=== PATIENT | female | born 1950 | race Asian ===

== ENCOUNTER 2020-02-03 09:19 | Outpatient (REF) | payer MEDICARE, SELFPAY ==
[2020-02-03 11:39] LABS: Estimated Average Glucose 169 mg/dL; Hemoglobin A1c % 7.5 %
[2020-02-03 12:00] LABS: Creatinine Urine 42.02 mg/dL; Microalbumin Urine < 5.0 mg/L
[2020-02-03 12:15] LABS: Vitamin D 25-OH Total 76.6 ng/mL (>30)
[2020-02-03 12:18] LABS: Alanine Aminotransferase 23 U/L (0-31); Anion Gap 16 (12-20); Aspartate Amino Transferase 23 U/L (5-31); Blood Urea Nitrogen 17 mg/dL (9-16); Calcium 9.8 mg/dL (8.4-10.2); Carbon Dioxide 26 mmol/L (22-29); Chloride 102 mmol/L (96-108); Cholesterol 151 mg/dL; Estimated Glomerular Filt Rate > 60; Glucose Fasting 180 mg/dL (60-99); HDL Cholesterol 50 mg/dL; LDL Cholesterol Calculated 61 mg/dl; Potassium 4.6 mmol/l (3.3-5.1); Sodium 139 mmol/L (135-145); Triglycerides 200 mg/dL
== END 2020-02-03 09:20 | disposition home or self-care (01) ==
LOC: HO.HMGCLDS 09:19
PROVIDERS: PCP Internal Medicine; Visit Provider Internal Medicine
DX: E11.65 Type 2 diabetes mellitus with hyperglycemia (principal); M85.852 Other specified disorders of bone density and structure, left thigh; I10 Essential (primary) hypertension; E78.5 Hyperlipidemia, unspecified; Z85.3 Personal history of malignant neoplasm of breast
CPT/HCPCS: 80048; 80061; 82043; 82306; 83036; 84450; 84460

== ENCOUNTER 2020-02-05 10:30 | Outpatient (REF) | payer BC, SELFPAY ==
--- NOTE | 2020-02-05 10:41 | MM_ITS ---
EXAMINATION: BONE DENSITOMETRY CLINICAL INDICATION: Other specified disorders of bone density and structure. COMPARISON: Previous BD dated 01/28/2018 and baseline BD dated 05/25/2011. TECHNIQUE: Using a [employer] DXA System (software version: 13.1) manufactured by [employer], dual-energy x-ray absorptiometry was performed of the lumbar spine and left hip. The images are of good technical quality. Summary results are attached. FINDINGS: AP SPINE L1-L4: Current: BMD 0.960 g/cm2, Z-score 0.3, T-score -1.8, osteopenia, 0.3% increase from previous, 1.5% decrease from baseline (<5% change is not significant). Prior: BMD 0.957 g/cm2. Baseline: BMD 0.975 g/cm2. LEFT FEMUR, NECK: Current: BMD 0.733 g/cm2, Z-score -0.2, T-score -2.2, osteopenia. Prior: BMD 0.704 g/cm2. Baseline: BMD 0.717 g/cm2. LEFT FEMUR, TOTAL: Current: BMD 0.918 g/cm2, Z-score 1.0, T-score -0.7, normal, 3.6% increase from previous, 3.4% increase from baseline (<5% change is not significant). Prior: BMD 0.886 g/cm2. Baseline: BMD 0.888 g/cm2. IDENTIFIED RISK FACTORS: Height loss, secondary osteoporosis, menopause. HISTORY OF FRACTURE: None listed. MEDICATIONS: Calcium supplements or multivitamin, vitamin D. MM/XR DEXA axial skeleton IMPRESSION: 1. DIAGNOSIS: Osteopenia based on the lowest T-score value of -2.2 in the femoral neck applying World Health Organization criteria. 2. 10-YEAR FRACTURE RISK PREDICTION, FRAX: Major osteoporotic fracture (clinical spine, forearm, hip or shoulder) 7.0%. Hip fracture 1.4%. 3. Treatment Recommendations: NOF guidelines recommend consideration for treatment in postmenopausal women and men age 50 and older presenting with the following: -A hip or vertebral (clinical or morphometric) fracture. -T-score less than or equal to -2.5 at the femoral neck or spine after appropriate evaluation to exclude secondary causes. -Low bone mass at the hip or spine and a 10-year fracture probability by FRAX of greater than or equal to 3% for hip fracture or greater than or equal to 20% for major osteoporotic fracture based on the [place] adapted WHO algorithm. 4. Other Recommendations: All treatment decisions require clinical judgment and consideration of individual patient factors, including patient preferences, comorbidities, previous drug use, risk factors not captured in the FRAX model (e.g. frailty, falls, vitamin D deficiency, increased bone turnover, interval significant decline in bone density) and possible under or overestimation of fracture risk by FRAX. Additional medical evaluation for secondary cause of low bone mineral density may be appropriate. FUTURE SCAN RECOMMENDATION: People with diagnosed cases of osteoporosis or at high risk for fracture should have regular bone mineral density tests. For patients eligible for Medicare, routine testing is allowed once every 2 years. The testing frequency can be increased to one year for patients who have rapidly progressing disease, those who are receiving or discontinuing medical therapy to restore bone mass, or have additional risk factors.
== END 2020-02-05 10:31 | disposition home or self-care (01) ==
LOC: HO.MAMMO 10:30
PROVIDERS: PCP Internal Medicine; Visit Provider Internal Medicine
DX: M81.8 Other osteoporosis without current pathological fracture (principal); M85.852 Other specified disorders of bone density and structure, left thigh; Z78.0 Asymptomatic menopausal state
CPT/HCPCS: 77080

== ENCOUNTER 2020-05-10 09:21 | Outpatient (REF) | payer MEDICARE, SELFPAY ==
[2020-05-10 11:26] LABS: Estimated Average Glucose 174 mg/dL; Hemoglobin A1c % 7.7 %
[2020-05-10 11:59] LABS: Creatinine Urine 38.54 mg/dL; Microalbum/Creatinine Ratio Ur 18.1 ug/mg cr
[2020-05-10 12:13] LABS: Alanine Aminotransferase 23 U/L (0-31); Albumin Level 4.5 g/dL (3.5-5.0); Alkaline Phosphatase 72 U/L (39-117); Anion Gap 14 (12-20); Aspartate Amino Transferase 21 U/L (5-31); Bilirubin Total 0.3 mg/dL (0.0-1.0); Blood Urea Nitrogen 23 mg/dL (9-16); Calcium 9.6 mg/dL (8.4-10.2); Carbon Dioxide 26 mmol/L (22-29); Chloride 104 mmol/L (96-108); Cholesterol 143 mg/dL; Estimated Glomerular Filt Rate > 60; Glucose Fasting 124 mg/dL (60-99); HDL Cholesterol 53 mg/dL; LDL Cholesterol Calculated 63 mg/dl; Potassium 4.2 mmol/L (3.3-5.1); Sodium 140 mmol/L (135-145); Total Protein 7.6 g/dL (6.5-8.0); Triglycerides 137 mg/dL
== END 2020-05-10 09:22 | disposition home or self-care (01) ==
LOC: HO.HMGCLDS 09:21
PROVIDERS: PCP Internal Medicine; Visit Provider Internal Medicine
DX: I10 Essential (primary) hypertension (principal); E11.65 Type 2 diabetes mellitus with hyperglycemia; E78.5 Hyperlipidemia, unspecified; Z78.0 Asymptomatic menopausal state
CPT/HCPCS: 36415; 80053; 80061; 82043; 82306; 83036

== ENCOUNTER → 2020-05-23 13:31 | Outpatient (BNVA) | payer MEDICARE, SELFPAY | PROVIDERS: PCP Internal Medicine; Visit Provider Nurse Practitioner Gerontology | DX: E11.65 Type 2 diabetes mellitus with hyperglycemia (principal); I10 Essential (primary) hypertension; E78.5 Hyperlipidemia, unspecified | CPT/HCPCS: 82947; 99212 ==

== ENCOUNTER 2020-10-04 15:32 | Outpatient (REF) | payer MEDICARE, SELFPAY ==
[2020-10-05 09:10] LABS: FIT Int Ctl YES; FIT1 NEGATIVE (NEGATIVE); FIT2 NEGATIVE (NEGATIVE)
== END 2020-10-04 15:33 | disposition home or self-care (01) ==
LOC: HO.LNP 15:32
PROVIDERS: Visit Provider Internal Medicine
DX: Z12.11 Encounter for screening for malignant neoplasm of colon (principal)
CPT/HCPCS: 82274

== ENCOUNTER 2020-11-15 09:29 | Outpatient (REF) | payer MEDICARE, SELFPAY ==
[2020-11-15 11:25] LABS: MANUAL DIFF FLAG NO
[2020-11-15 11:34] LABS: Basophils Absolute Auto 0.1 X10*3/uL (0.0-0.2); Eosinophils Absolute Auto 0.2 X10*3/uL (0.0-0.4); Hematocrit 39.3 % (37-47); Hemoglobin 13.2 g/dl (12.0-16.0); Imm Gran Abs Auto 0.01 X10*3/uL (0.00-0.03); Imm Gran Pct Auto 0.2 % (0.0-0.4); Lymphocytes Absolute Auto 1.7 X10*3/uL (1.2-4.9); Lymphocytes Percent Auto 32.5 % (20-40); Mean Corpuscular HGB Conc 33.6 g/dl (31.0-35.0); Mean Corpuscular Hemoglobin 29.5 pg (27.0-33.0); Mean Corpuscular Volume 87.7 fL (80-98); Mean Platelet Volume 11.1 fL (9.4-12.3); Monocytes Absolute Auto 0.3 X10*3/uL (0.1-1.2); Monocytes Percent Auto 5.1 % (2-11); Neutrophils Percent Auto 58.2 % (45-73); Platelet Count 266 X10*3/uL (160-400); Red Blood Count 4.48 X10*6/uL (4.20-5.50); White Blood Count 5.1 X10*3/uL (4.8-10.8)
[2020-11-15 11:44] LABS: Creatinine Urine 43.28 mg/dL; Microalbumin Urine < 5.0 mg/L
[2020-11-15 11:50] LABS: Alanine Aminotransferase 17 U/L (0-31); Albumin Level 4.4 g/dL (3.5-5.0); Alkaline Phosphatase 68 U/L (39-117); Anion Gap 13 (12-20); Aspartate Amino Transferase 20 U/L (5-31); Bilirubin Total 0.9 mg/dL (0.0-1.0); Blood Urea Nitrogen 10 mg/dL (9-16); Calcium 9.7 mg/dL (8.4-10.2); Carbon Dioxide 26 mmol/L (22-29); Chloride 106 mmol/L (96-108); Cholesterol 155 mg/dL; Estimated Glomerular Filt Rate > 60; Glucose Fasting 154 mg/dL (60-99); HDL Cholesterol 53 mg/dL; LDL Cholesterol Calculated 54 mg/dl; Potassium 4.6 mmol/L (3.3-5.1); Sodium 140 mmol/L (135-145); Total Protein 7.2 g/dL (6.5-8.0); Triglycerides 241 mg/dL
[2020-11-15 11:57] LABS: Estimated Average Glucose 171 mg/dL; Hemoglobin A1c % 7.6 %
[2020-11-15 12:19] LABS: Vitamin D 25-OH Total 87.7 ng/mL (>30)
== END 2020-11-15 09:30 | disposition home or self-care (01) ==
LOC: HO.HMGCLDS 09:29
PROVIDERS: PCP Internal Medicine; Visit Provider Internal Medicine
DX: E11.65 Type 2 diabetes mellitus with hyperglycemia (principal); Z78.0 Asymptomatic menopausal state
CPT/HCPCS: 36415; 80053; 80061; 82043; 82306; 83036; 85025

== ENCOUNTER 2021-02-23 08:55 | Outpatient (REF) | payer MEDICARE, SELFPAY ==
[2021-02-23 11:53] LABS: Estimated Average Glucose 171 mg/dL; Hemoglobin A1c % 7.6 %
[2021-02-23 12:08] LABS: Creatinine Urine 42.82 mg/dL; Microalbumin Urine < 5.0 mg/L
[2021-02-23 12:14] LABS: Alanine Aminotransferase 22 U/L (0-31); Anion Gap 11 (12-20); Aspartate Amino Transferase 21 U/L (5-31); Blood Urea Nitrogen 19 mg/dL (9-16); Calcium 9.4 mg/dL (8.4-10.2); Carbon Dioxide 27 mmol/L (22-29); Chloride 106 mmol/L (96-108); Cholesterol 152 mg/dL; Estimated Glomerular Filt Rate > 60; Glucose Fasting 158 mg/dL (60-99); HDL Cholesterol 53 mg/dL; LDL Cholesterol Calculated 58 mg/dl; Potassium 4.3 mmol/L (3.3-5.1); Sodium 140 mmol/L (135-145); Triglycerides 208 mg/dL
[2021-02-23 12:22] LABS: Vitamin D 25-OH Total 72.6 ng/mL (>30)
== END 2021-02-23 08:56 | disposition home or self-care (01) ==
LOC: HO.HMGCLDS 08:55
PROVIDERS: PCP Internal Medicine; Visit Provider Internal Medicine
DX: E11.40 Type 2 diabetes mellitus with diabetic neuropathy, unspecified (principal); E11.65 Type 2 diabetes mellitus with hyperglycemia; E78.5 Hyperlipidemia, unspecified; I10 Essential (primary) hypertension
CPT/HCPCS: 36415; 80048; 80061; 82043; 82306; 83036; 84450; 84460

== ENCOUNTER 2021-06-02 09:12 | Outpatient (REF) | payer MEDICARE, SELFPAY ==
[2021-06-02 11:59] LABS: Alanine Aminotransferase 22 U/L (0-31); Anion Gap 14 (12-20); Aspartate Amino Transferase 19 U/L (5-31); Blood Urea Nitrogen 13 mg/dL (9-16); Calcium 9.9 mg/dL (8.4-10.2); Carbon Dioxide 27 mmol/L (22-29); Chloride 102 mmol/L (96-108); Cholesterol 142 mg/dL; Estimated Glomerular Filt Rate > 60; Glucose Fasting 174 mg/dL (60-99); HDL Cholesterol 51 mg/dL; LDL Cholesterol Calculated 50 mg/dl; Potassium 4.9 mmol/L (3.3-5.1); Sodium 138 mmol/L (135-145); Triglycerides 206 mg/dL
[2021-06-02 12:00] LABS: Estimated Average Glucose 166 mg/dL; Hemoglobin A1c % 7.4 %
== END 2021-06-02 09:13 | disposition home or self-care (01) ==
LOC: HO.HMGCLDS 09:12
PROVIDERS: PCP Internal Medicine; Visit Provider Internal Medicine
DX: E11.65 Type 2 diabetes mellitus with hyperglycemia (principal); E78.5 Hyperlipidemia, unspecified; I10 Essential (primary) hypertension
CPT/HCPCS: 36415; 80048; 80061; 83036; 84450; 84460

== ENCOUNTER 2021-09-08 08:59 | Outpatient (REF) | payer OTHER, SELFPAY ==
[2021-09-08 12:51] LABS: Estimated Average Glucose 154 mg/dL
[2021-09-08 13:03] LABS: Alanine Aminotransferase 20 U/L (0-31); Anion Gap 11 (12-20); Aspartate Amino Transferase 19 U/L (5-31); Blood Urea Nitrogen 23 mg/dL (9-16); Calcium 8.9 mg/dL (8.4-10.2); Carbon Dioxide 25 mmol/L (22-29); Chloride 108 mmol/L (96-108); Cholesterol 151 mg/dL; Estimated Glomerular Filt Rate > 60; Glucose Fasting 131 mg/dL (60-99); HDL Cholesterol 50 mg/dL; LDL Cholesterol Calculated 63 mg/dl; Potassium 4.2 mmol/L (3.3-5.1); Sodium 140 mmol/L (135-145); Triglycerides 194 mg/dL
== END 2021-09-08 09:00 | disposition home or self-care (01) ==
LOC: HO.HMGCLDS 08:59
PROVIDERS: PCP Internal Medicine; Visit Provider Internal Medicine
DX: E78.5 Hyperlipidemia, unspecified (principal); I10 Essential (primary) hypertension; E11.65 Type 2 diabetes mellitus with hyperglycemia
CPT/HCPCS: 36415; 80048; 80061; 83036; 84450; 84460

== ENCOUNTER 2021-12-14 08:42 | Outpatient (REF) | payer OTHER, SELFPAY ==
[2021-12-14 11:18] LABS: Estimated Average Glucose 166 mg/dL; Hemoglobin A1c % 7.4 %
[2021-12-14 12:00] LABS: Vitamin D 25-OH Total 75.7 ng/mL (>30)
[2021-12-14 12:01] LABS: Alanine Aminotransferase 19 U/L (0-31); Anion Gap 16 (12-20); Aspartate Amino Transferase 22 U/L (5-31); Blood Urea Nitrogen 20 mg/dL (9-16); Calcium 9.9 mg/dL (8.4-10.2); Carbon Dioxide 24 mmol/L (22-29); Chloride 103 mmol/L (96-108); Cholesterol 178 mg/dL; Estimated Glomerular Filt Rate > 60; Glucose Fasting 154 mg/dL (60-99); HDL Cholesterol 56 mg/dL; LDL Cholesterol Calculated 72 mg/dl; Potassium 4.4 mmol/L (3.3-5.1); Sodium 139 mmol/L (135-145); Triglycerides 250 mg/dL
== END 2021-12-14 08:43 | disposition home or self-care (01) ==
LOC: HO.HMGCLDS 08:42
PROVIDERS: PCP Internal Medicine; Visit Provider Internal Medicine
DX: E11.40 Type 2 diabetes mellitus with diabetic neuropathy, unspecified (principal); E11.65 Type 2 diabetes mellitus with hyperglycemia; E78.5 Hyperlipidemia, unspecified; I10 Essential (primary) hypertension; M85.89 Other specified disorders of bone density and structure, multiple sites; N95.9 Unspecified menopausal and perimenopausal disorder
CPT/HCPCS: 36415; 80048; 80061; 82306; 83036; 84450; 84460

== ENCOUNTER → 2022-01-31 14:58 | Outpatient (BNVA) | payer OTHER, SELFPAY | PROVIDERS: PCP Internal Medicine; Visit Provider Internal Medicine | DX: R19.5 Other fecal abnormalities (principal); R19.8 Other specified symptoms and signs involving the digestive system and abdomen | CPT/HCPCS: 99202 ==

== ENCOUNTER 2022-02-05 08:54 | Day surgery (SDC) | payer OTHER, SELFPAY ==
--- NOTE | 2022-02-02 09:53 | HO.ANESPROP2 ---
Documented by User: Prema Boyle NP 02/02/22 09:54 HPI - Anesthesia Eval Consult details Narrative: 71yo F for Colonoscopy PMFSH Active Problems Active Problems: All Active Problems (Updated 01/31/22 @ 15:48 by Rosy Ball MD) Irregular bowel habits (Acute) History of cancer of left breast (Acute) Change in stool caliber (Acute) Postprandial abdominal bloating (Acute) Type 2 diabetes mellitus with hyperglycemia, without long-term current use of insulin (Acute) Diabetic neuropathy (Acute) Essential hypertension (Acute) Dyslipidemia (Acute) Breast cancer screening by mammogram (Acute) Osteopenia of multiple sites (Acute) Past Medical History Medical History Change in stool caliber Diabetic neuropathy Dyslipidemia Essential hypertension History of cancer of left breast Hx SBO Osteopenia of multiple sites Postprandial abdominal bloating Small bowel obstruction Type 2 diabetes mellitus with hyperglycemia, without long-term current use of insulin Family History Family History Father No problems noted. Mother No problems noted. Sister Diabetes Daughter No problems noted. Brother Colon cancer Surgical History Surgical History H/O mastectomy History of bowel resection History of section Social History Social History Household Members: Spouse Housing: House Alcohol intake: never Patient Tobacco Use Status: Never used Tobacco e-Cigarette/Vaping Use: Never Used Use of substances other than those prescribed or required for medical reasons: No Are you DNR?: No Advance Directives: No Advance Directives Information Provided: Yes Current occupational status: retired Cognitive needs: No Hearing needs: No Vision needs: Yes Meds Allergies Allergy/AdvReac Type Severity Reaction Status Date / Time Penicillins [PENICILLINS] Allergy Unknown RASH Verified 01/31/22 15:07 Home Medications Medication Instructions Recorded Confirmed Last Taken Type lancets 30 gauge #100 ea 02/10/20 03/06/21 Unknown History cholecalciferol (vitamin D3) 50 50 mcg PO DAILY 12/06/20 02/05/22 Unknown History mcg (2,000 unit) capsule [id number]-xaeyzcez-oeynfu tablet 1 tab PO DAILY 12/06/20 02/05/22 Unknown History Exam Exam Date and Time: February 02, 2022 0987 Pertinent Lab Results Pertinent Lab Results: Laboratory Tests 12/14/21 08:55 Sodium 139 Potassium 4.4 Chloride 103 Carbon Dioxide 24 BUN 20 H Creatinine 0.80 Assessment and Plan Assessment Anesthesia Assessment: Chart Reviewed Documented by User: Briseida Walker MD 02/05/22 10:11 PMFSH Active Problems Active Problems: All Active Problems (Updated 01/31/22 @ 15:48 by Rosy Ball MD) Irregular bowel habits (Acute) History of cancer of left breast (Acute) Change in stool caliber (Acute) Postprandial abdominal bloating (Acute) Type 2 diabetes mellitus with hyperglycemia, without long-term current use of insulin (Acute) Diabetic neuropathy (Acute) Essential hypertension (Acute) Dyslipidemia (Acute) Breast cancer screening by mammogram (Acute) Osteopenia of multiple sites (Acute) Pain and some swelling below right ear. Intermittent. Mild pain today Past Medical History Medical History Change in stool caliber Diabetic neuropathy Dyslipidemia Essential hypertension History of cancer of left breast Hx SBO Osteopenia of multiple sites Postprandial abdominal bloating Small bowel obstruction Type 2 diabetes mellitus with hyperglycemia, without long-term current use of insulin Family History Family History Father No problems noted. Mother No problems noted. Sister Diabetes Daughter No problems noted. Brother Colon cancer Family history of problems with anesthesia: No Surgical History Surgical History H/O mastectomy History of bowel resection History of section History of Problems with Anesthesia: No Social History Social History Household Members: Spouse Housing: House Alcohol intake: never Patient Tobacco Use Status: Never used Tobacco e-Cigarette/Vaping Use: Never Used Use of substances other than those prescribed or required for medical reasons: No Are you DNR?: No Advance Directives: No Advance Directives Information Provided: Yes Current occupational status: retired Cognitive needs: No Hearing needs: No Vision needs: Yes Meds Allergies Allergy/AdvReac Type Severity Reaction Status Date / Time Penicillins [PENICILLINS] Allergy Unknown RASH Verified 01/31/22 15:07 Home Medications Medication Instructions Recorded Confirmed Last Taken Type lancets 30 gauge #100 ea 02/10/20 03/06/21 Unknown History cholecalciferol (vitamin D3) 50 50 mcg PO DAILY 12/06/20 02/05/22 Unknown History mcg (2,000 unit) capsule ivdsteerkmab-wvceqllq-mmknrd tablet 1 tab PO DAILY 12/06/20 02/05/22 Unknown History Exam Height,Weight and Vital Signs: Height 4 ft 8 in Weight 46.266 kg Vital Signs Temp Pulse Resp BP Pulse Ox O2 Del Method 02/05/22 09:52 98.7 F 91 16 144/67 H 97 Room Air Pertinent Lab Results Pertinent Lab Results: Laboratory Tests 12/14/21 08:55 Sodium 139 Potassium 4.4 Chloride 103 Carbon Dioxide 24 BUN 20 H Creatinine 0.80 Lab Results 02/05/22 Range/Units 10:05 POC Glucose 157 H (60-115) mg/dL Airway Mallampati Class: II TM Dist: >3cm Neck ROM: Full Denture: Upper and Lower Heart: RRR Lungs: CTAB Assessment and Plan Assessment Anesthesia Assessment: Anesthesia Plan Discussed Final Anesthetic Review Family History of Problems with Anesthesia: No History of Problems with Anesthesia: No NPO: Yes ASA Class: II Final Preanesthetic Review: No Changes in Pt Med Stat, Meds/Allgs Chart Reviewed, Consent Obtained/Reviewed and Anes Risks/Benef Reviewed Patient Risk: Low Procedure Risk: Low Assessment/Block/Sedation in SS: Assess/Block/Sedation-SS Anesthetic Plan Anesthetic Plan: MAC: Disposition: Standard PACU
[2022-02-05] VITALS (8 sets, daily range): BP systolic 77–147; BP diastolic 29–67; PULSE 79–91; RESP 12–18; TEMP 36.8–37.1; O2SAT 97–100; BMI 22.8
[2022-02-05 10:09] LABS: Glucose, Whole Blood 157 mg/dL (60-115)
--- NOTE | 2022-02-05 10:15 | P.OP_ITS ---
Operative Note Operative Note Date of Service: 02/05/22 Narrative: Procedure: Colonoscopy Indication: Change in stool caliber, family history of colon cancer Endoscopist: Rosy Ball MD Anesthesia Provider: Aliyah Helm CRNA Anesthesia type: MAC Instrument: Olympus [id number]-H190L Consent: Indication, risks vs benefits, and alternatives were discussed with the patient who gave written informed consent to proceed. EKG, pulse, pulse oximetry and blood pressure were monitored throughout the procedure. Please see leatha bob flowsheet. Procedure: The patient was brought to the procedure room and placed in the left lateral decubitus position. IV medications were administered by the anesthesia provider in attendance. A digital rectal exam was performed which was normal. The colonoscope was then inserted through the anus and advanced through the colon to the cecum at 70 cm,and terminal ileum. Mucosa was carefully examined under high definition white light as the instrument was slowly withdrawn in a retrograde panoramic fashion. Retroflexion was performed in rectum. The procedure was not difficult. There were no immediate obvious complications. The quality of the prep was BBPS: 3+3+3 = excellent Withdrawal time 14 minutes. Limitations: No limitations. Findings: Mucosa: Normal to cecum and terminal ileum. Protruding lesions: * Small internal hemorrhoids without stigmata of recent bleeding. Impression: 1. Normal colon and terminal ileum mucosa 2. Internal hemorrhoids Recommendations: - Follow path results. - Repeat colonoscopy in 10 years for CRC screening if in good health (fam hx of CRC in brother noted, however was diagnosed at 66 y.o age).
--- NOTE | 2022-02-05 10:15 | MHC.SHP ---
Pre-Procedural Eval Section A Date of Service: 02/05/22 The patient is an INPATIENT: No The History & Physical has been completed within 30 days and I have reviewed it.: Yes Section B Chief Complaint: Change in stool caliber & bowel habits Allergies: Allergies Allergy/AdvReac Type Severity Reaction Status Date / Time Penicillins [PENICILLINS] Allergy Unknown RASH Verified 01/31/22 15:07 Plan Diagnosis/Plan: Unchanged I have reviewed the history and physical and performed a pertinent physical examination on my patient. No changes have occurred unless specified.
[2022-02-05] MEDS: Lactated Ringers 1,000 ML 100 ML IVCONT (10:17)
== END 2022-02-05 13:42 | disposition home or self-care (01) ==
PROVIDERS: PCP Internal Medicine; Visit Provider Internal Medicine
PROC: 0DJD8ZZ Inspection of Lower Intestinal Tract, Via Natural or Artificial Opening Endoscopic (ICD-10-PCS; CPT 45378; principal; 2022-02-05 10:20)
DX: R19.4 Change in bowel habit (principal); Z80.0 Family history of malignant neoplasm of digestive organs; K64.8 Other hemorrhoids; C50.912 Malignant neoplasm of unspecified site of left female breast; M85.89 Other specified disorders of bone density and structure, multiple sites; E11.40 Type 2 diabetes mellitus with diabetic neuropathy, unspecified; E11.65 Type 2 diabetes mellitus with hyperglycemia; E78.5 Hyperlipidemia, unspecified; I10 Essential (primary) hypertension; Z87.19 Personal history of other diseases of the digestive system; Z90.49 Acquired absence of other specified parts of digestive tract; Z79.84 Long term (current) use of oral hypoglycemic drugs; Z79.811 Long term (current) use of aromatase inhibitors; Z88.0 Allergy status to penicillin
CPT/HCPCS: 45378; 82947

== ENCOUNTER 2022-05-11 07:20 | Outpatient (REF) | payer OTHER, SELFPAY ==
[2022-05-11 12:45] LABS: Estimated Average Glucose 154 mg/dL
[2022-05-11 12:51] LABS: Creatinine Urine 59.67 mg/dL; Microalbum/Creatinine Ratio Ur 21.7 ug/mg cr
[2022-05-11 13:42] LABS: Alanine Aminotransferase 21 U/L (0-31); Anion Gap 17 (12-20); Aspartate Amino Transferase 19 U/L (5-31); Blood Urea Nitrogen 24 mg/dL (9-16); Calcium 9.6 mg/dL (8.4-10.2); Carbon Dioxide 25 mmol/L (22-29); Chloride 104 mmol/L (96-108); Cholesterol 157 mg/dL; Estimated Glomerular Filt Rate > 60; Glucose Fasting 143 mg/dL (60-99); HDL Cholesterol 57 mg/dL; LDL Cholesterol Calculated 59 mg/dl; Potassium 4.7 mmol/L (3.3-5.1); Sodium 141 mmol/L (135-145); Triglycerides 206 mg/dL
[2022-05-11 13:57] LABS: Vitamin D 25-OH Total 80.1 ng/mL (>30)
== END 2022-05-11 07:21 | disposition home or self-care (01) ==
LOC: HO.HMGCLDS 07:20
PROVIDERS: PCP Internal Medicine; Visit Provider Internal Medicine
DX: E78.5 Hyperlipidemia, unspecified (principal); I10 Essential (primary) hypertension; M85.89 Other specified disorders of bone density and structure, multiple sites; N95.9 Unspecified menopausal and perimenopausal disorder; E11.65 Type 2 diabetes mellitus with hyperglycemia
CPT/HCPCS: 36415; 80048; 80061; 82043; 82306; 83036; 84450; 84460

== ENCOUNTER 2022-05-31 10:52 | Outpatient (REF) | payer OTHER, SELFPAY ==
--- NOTE | ~2022-05-31 | MM_ITS ---
EXAMINATION: BONE DENSITOMETRY CLINICAL INDICATION: Asymptomatic menopausal state. COMPARISON: Previous BD dated 02/05/2020 and baseline BD dated 05/25/2011. TECHNIQUE: Using a [employer] DXA System (software version: 13.1) manufactured by [employer], dual-energy x-ray absorptiometry was performed of the lumbar spine and left hip. The images are of good technical quality. Summary results are attached. FINDINGS: AP SPINE L1-L4: Current: BMD 0.953 g/cm2, Z-score 0.4, T-score -1.9, osteopenia, 0.7% decrease from previous, 2.3% decrease from baseline (<5% change is not significant). Prior: BMD 0.960 g/cm2. Baseline: BMD 0.975 g/cm2. LEFT FEMUR, NECK: Current: BMD 0.730 g/cm2, Z-score -0.1, T-score -2.2, osteopenia. Prior: BMD 0.733 g/cm2. Baseline: BMD 0.717 g/cm2. LEFT FEMUR, TOTAL: Current: BMD 0.872 g/cm2, Z-score 0.9, T-score -1.1, osteopenia, 5.0% decrease from previous, 1.8% decrease from baseline (<5% change is not significant). Prior: BMD 0.918 g/cm2. Baseline: BMD 0.888 g/cm2. IDENTIFIED RISK FACTORS: Height loss, menopause. HISTORY OF FRACTURE: None listed. MEDICATIONS: Calcium, vitamin D. MM/XR DEXA axial skeleton IMPRESSION: 1. DIAGNOSIS: Osteopenia based on the lowest T-score value of -2.2 in the femoral neck applying World Health Organization criteria. 2. 10-YEAR FRACTURE RISK PREDICTION, FRAX: Major osteoporotic fracture (clinical spine, forearm, hip or shoulder) 6.8%. Hip fracture 1.7%. 3. Treatment Recommendations: NOF guidelines recommend consideration for treatment in postmenopausal women and men age 50 and older presenting with the following: -A hip or vertebral (clinical or morphometric) fracture. -T-score less than or equal to -2.5 at the femoral neck or spine after appropriate evaluation to exclude secondary causes. -Low bone mass at the hip or spine and a 10-year fracture probability by FRAX of greater than or equal to 3% for hip fracture or greater than or equal to 20% for major osteoporotic fracture based on the [place] adapted WHO algorithm. 4. Other Recommendations: All treatment decisions require clinical judgment and consideration of individual patient factors, including patient preferences, comorbidities, previous drug use, risk factors not captured in the FRAX model (e.g. frailty, falls, vitamin D deficiency, increased bone turnover, interval significant decline in bone density) and possible under or overestimation of fracture risk by FRAX. Additional medical evaluation for secondary cause of low bone mineral density may be appropriate. FUTURE SCAN RECOMMENDATION: People with diagnosed cases of osteoporosis or at high risk for fracture should have regular bone mineral density tests. For patients eligible for Medicare, routine testing is allowed once every 2 years. The testing frequency can be increased to one year for patients who have rapidly progressing disease, those who are receiving or discontinuing medical therapy to restore bone mass, or have additional risk factors.
== END 2022-05-31 10:53 | disposition home or self-care (01) ==
LOC: HO.MAMMO 10:52
PROVIDERS: PCP Internal Medicine; Visit Provider Internal Medicine
DX: Z13.820 Encounter for screening for osteoporosis (principal); M85.89 Other specified disorders of bone density and structure, multiple sites; Z78.0 Asymptomatic menopausal state
CPT/HCPCS: 77080

== ENCOUNTER 2022-08-17 08:32 | Outpatient (REF) | payer OTHER, SELFPAY ==
[2022-08-17 11:51] LABS: Estimated Average Glucose 157 mg/dL; Hemoglobin A1c % 7.1 %
[2022-08-17 12:05] LABS: Alanine Aminotransferase 17 U/L (0-31); Anion Gap 15 (12-20); Aspartate Amino Transferase 20 U/L (5-31); Blood Urea Nitrogen 24 mg/dL (9-16); Calcium 9.6 mg/dL (8.4-10.2); Carbon Dioxide 24 mmol/L (22-29); Chloride 104 mmol/L (96-108); Cholesterol 149 mg/dL; Estimated Glomerular Filt Rate > 60; Glucose Fasting 104 mg/dL (60-99); HDL Cholesterol 51 mg/dL; LDL Cholesterol Calculated 52 mg/dl; Potassium 3.8 mmol/L (3.3-5.1); Sodium 139 mmol/L (135-145); Triglycerides 233 mg/dL
[2022-08-17 12:24] LABS: Vitamin D 25-OH Total 106.7 ng/mL (>30)
== END 2022-08-17 08:33 | disposition home or self-care (01) ==
LOC: HO.HMGCLDS 08:32
PROVIDERS: PCP Internal Medicine; Visit Provider Internal Medicine
DX: E11.65 Type 2 diabetes mellitus with hyperglycemia (principal); E78.5 Hyperlipidemia, unspecified; I10 Essential (primary) hypertension; M85.89 Other specified disorders of bone density and structure, multiple sites
CPT/HCPCS: 36415; 80048; 80061; 82306; 83036; 84450; 84460

== ENCOUNTER 2022-08-24 11:34 | Outpatient (AMB) | payer OTHER, SELFPAY ==
--- NOTE | 2022-08-24 12:06 | A.OFFPC_ITS ---
Vital Signs 08/24/22 12:51 Weight 100 lb 6 oz BP 118/72 Blood Pressure Location Rt brachial Position Sitting Pulse 84 Pulse Source Pulse Oximeter Pulse Oximetry (%) 98 Intake Visit Reasons: 3 month ffup dm , lipids, htn Intake Note: Pt is here today for her 3 months f/u DM,lipids and HTN Allergies Penicillins [PENICILLINS] Allergy (Unknown, Verified 10/15/22 13:16) RASH Medication List - Last Reconciled 10/16/22 by Wendy Espinosa MD cholecalciferol (vitamin D3) 50 mcg PO DAILY glipizide 10 mg PO BID 90 days lancets As directed lisinopril 20 mg PO DAILY metformin 1,000 mg PO BID yxygjwbrlfga-kabhqsky-allwwi 1 tab PO DAILY rosuvastatin 10 mg PO Q2D 90 days Tobacco use date assessed: 05/18/22 Fall risk assessment: 1 Fall in past year Last assessed Fall Risk: 08/24/22 Dental Screening Dental Screen Date: 08/24/22 Did you have a dental visit in the last 12 months?: No Did you have a dental problem in the last 6 months where you did not have access to dental care?: No Was dental information given to patient?: No (patient has dentures ) HPI 3 month ffup dm , lipids, htn HPI Details 72-year-old lady here today for follow-up on her diabetes mellitus, dyslipidemia hypertension. Has been compliant with taking her medications and has been trying to cut back on her rice intake and staying active. Walks regularly for exercise. Has no complaints at present time [facility] Medical History Change in stool caliber Diabetic neuropathy Dyslipidemia Essential hypertension History of cancer of left breast Hx SBO Osteopenia of multiple sites Postprandial abdominal bloating Small bowel obstruction Type 2 diabetes mellitus with hyperglycemia, without long-term current use of insulin Surgical History H/O mastectomy History of bowel resection History of section Family History Father No problems noted. Mother No problems noted. Sister Diabetes Daughter No problems noted. Brother Colon cancer Social History Household Members: Spouse Housing: House Alcohol intake: never Patient Tobacco Use Status: Never used Tobacco e-Cigarette/Vaping Use: Never Used Current occupational status: retired Cognitive needs: No Hearing needs: No Vision needs: Yes Questionnaire PHQ-9 Over the last 2 weeks, how often have you been bothered by any of the following problems? Depression Screening Interpretation: Negative Source: Developed by Drs. Rocky Kelly, Kanu Campbell and colleagues, with an educational vanita from [employer]. Thrive Questionnaire Date Thrive assessed: 05/18/22 VIOLETA-7 AMB Questionnaire VIOLETA-7 Date VIOLETA - 7 assessed: 05/18/22 Source: Developed by Drs. Rocky Kelly, Nazanin Gorman, Kanu Tang and colleagues, with an educational vanita from [employer]. Review of Systems Const Denies difficulty sleeping, Denies fatigue, Denies malaise, Denies weakness, Denies weight gain and Denies weight loss Eyes Denies change in vision ENT Reports no additional complaints Card Denies chest pain, Denies palpitations and Denies dyspnea Resp Denies cough and Denies dyspnea GI Denies abdominal pain, Denies melena, Denies hematochezia, Denies change in bowel habits, Denies heartburn and Denies fecal incontinence Denies difficulty voiding, Denies nocturia, Denies dysuria, Denies urinary urgency and Denies vaginal discharge Musc Denies muscle cramps and Denies muscle weakness Neuro Denies burning sensations and Denies weakness Endo Denies fatigue, Denies polydipsia, Reports polyuria and Denies palpitations Ascencion/Lymph Denies easy bruising Aller/Immun Reports no additional complaints Physical exam (Primary Care) Vital Signs: Last Vital Signs Pulse 84 08/24/22 12:51 BP 118/72 08/24/22 12:51 Pulse Ox 98 08/24/22 12:51 Tobacco/Smoking Status: Tobacco use Status Tobacco use date assessed 05/18/22 08/24/22 12:09 Patient Tobacco Use Status Never used Tobacco 08/24/22 12:09 e-Cigarette/Vaping Use Never Used 08/24/22 12:09 Depression Screening Interpretation: Negative Thrive Assessment: Date of Thrive Assessment Date Thrive assessed 05/18/22 08/24/22 12:09 Const General: comfortable and no acute distress Nutritional Appearance: average body habitus Orientation/consciousness: patient oriented x3 HENMT Face and sinus: Yes face symmetric Mouth: Normal oral and palatal mucosa present and moist mucous membranes Neck Neck: Yes full ROM, Yes no lymphadenopathy and Yes supple Resp Effort & Inspection: normal respiratory effort and able to speak in complete sentences Auscultation: clear to auscultation bilaterally Cardio Other: S1-S2 present regular rate and rhythm GI Palpation (GI): Soft to palpation, nontender and no guarding Auscultation: normal bowel sounds Neuro General: patient oriented x3, gait normal, tone normal, moves all extremities, Normal light touch and pain sensation, no focal motor deficits, CN's II-XI intact bilaterally and normal sensation to monofilament Extrem General: Yes full ROM, Yes no joint enlargement, Yes no clubbing, cyanosis or edema, Yes no calf tenderness and Yes normal gait Results Reviewed Results Reviewed: ENTERED: 08/17/[address]: ORDERED: Met Prof Fast, AST, ALT, Lipid Panel, Vitamin D 25-OH Test Result Flag Reference Site N Sodium 139 135-145 mmol/L Potassium 3.8 3.3-5.1 mmol/L CL 104 96-108 mmol/L CO2 24 22-29 mmol/L Gap 15 12-20 BUN 24 H 9-16 mg/dL Creat 0.78 0.5-1.4 mg/dL EGFR > 60 NOTE: For -[place] individuals, multiply the result by 1.210. Chronic Kidney Disease: Estimated GFR < 60 mL/min/1.73m2 Severe Kidney Disease: Estimated GFR < 15 mL/min/1.73m2 FBS 104 H 60-99 mg/dL A fasting glucose from 100-125 mg/dl is considered impaired (pre-diabetes). CA 9.6 8.4-10.2 mg/dL AST (GOT) 20 5-31 U/L ALT (GPT) 17 0-31 U/L Triglyceride 233 mg/dL Desirable Triglyceride: less than 150 mg/dL Borderline High Triglyceride 150-199 mg/dL High Triglyceride: 200-499 mg/dL Very High Triglyceride: greater than or equal to 5OO mg/dL Chol 149 mg/dL Desirable Cholesterol: less than 200 mg/dL Borderline High Cholesterol: 200-239 mg/dL High Cholesterol: greater than 239 mg/dL LDL Calculated 52 mg/dl Desirable LDL: less than 100 mg/dL Near Optimal/Above Optimal LDL: 110-129 mg/dL Borderline High LDL: 130-159 mg/dL High LDL: 160-189 mg/dL Very High LDL: greater than or equal to 190 mg/dL HDL 51 mg/dL Desirable HDL: greater than 40 mg/dL Note: This HDL assay may give artificially low results in patients with liver disease. Vit D 25-OH Tot 106.7 >30 ng/mL Health Based Reference Values* < 20 ng/mL Deficient 20-30 ng/mL Insufficient > 30 ng/mL Sufficient Laboratory Tests 08/17/22 08:42 Estimat Average Glucose 157 Hemoglobin A1c % 7.1 Assessment and Plan Assessment & Plan (1) Type 2 diabetes mellitus with hyperglycemia, without long-term current use of insulin: Code(s): E11.65 - Type 2 diabetes mellitus with hyperglycemia Plan: Recent lab results reviewed with patient, with improving glucose control with hemoglobin A1c 7.1%. Continue metformin and glipizide same dose, and continue to check fasting blood sugar at home, maintain log and bring to next appointment for review. Reinforced diabetic diet and regular exercise with patient. Counseled regarding importance of yearly diabetes retinopathy screening. Patient advised to inspect feet daily, for any signs of injury, callus or infection. Compliance with diet and regular exercise again stressed. Blood pressure goal is less than 130/80, goal LDL is less than 100 and goal hemoglobin A1c is less than 7% follow-up appointment made in-3--months, after fasting labs done. (2) Essential hypertension: Code(s): I10 - Essential (primary) hypertension Plan: Blood pressure at goal of less than 130/80. Continue with current medication. Reinforced importance of following a low sodium diet, getting regular exercise, and lowering stress levels. (3) Dyslipidemia: Code(s): E78.5 - Hyperlipidemia, unspecified Plan: Fasting lipids are within normal limits, continued on current dose of rosuvastatin 10 mg every other day, and repeat fasting lipid panel again in 3 months (4) Osteopenia of multiple sites: Code(s): M85.89 - Other specified disorders of bone density and structure, multiple sites Orders: Orders Alanine Aminotransferase 4 Months E11.65 - Type 2 diabetes mellitus with hyperglycemia, I10 - Essential (primary) hypertension, E78.5 - Hyperlipidemia, unspecified, M85.89 - Other specified disorders of bone density and structure, multiple sites Aspartate Amino Transferase 4 Months E11.65 - Type 2 diabetes mellitus with hyperglycemia, I10 - Essential (primary) hypertension, E78.5 - Hyperlipidemia, unspecified, M85.89 - Other specified disorders of bone density and structure, multiple sites Hemoglobin A1c 4 Months E11.65 - Type 2 diabetes mellitus with hyperglycemia, I10 - Essential (primary) hypertension, E78.5 - Hyperlipidemia, unspecified, M85.89 - Other specified disorders of bone density and structure, multiple sites Lipid Panel 4 Months E11.65 - Type 2 diabetes mellitus with hyperglycemia, I10 - Essential (primary) hypertension, E78.5 - Hyperlipidemia, unspecified, M85.89 - Other specified disorders of bone density and structure, multiple sites Basic Metabolic Panel Fasting 4 Months E11.65 - Type 2 diabetes mellitus with hyperglycemia, I10 - Essential (primary) hypertension, E78.5 - Hyperlipidemia, unspecified, M85.89 - Other specified disorders of bone density and structure, multiple sites Vitamin D 25-OH Total 4 Months E11.65 - Type 2 diabetes mellitus with hyperglycemia, I10 - Essential (primary) hypertension, E78.5 - Hyperlipidemia, unspecified, M85.89 - Other specified disorders of bone density and structure, multiple sites Medications: Changed From glipizide take 2 tabs (10 Mg) in am and 1 tab (5 mg) in pm with meals PO 2 times a day; 90 days 270 tabs 1RF .65 - Type 2 diabetes mellitus with hyperglycemia To glipizide take 2 tabs (10 Mg) in am and 1 tab (5 mg) in pm with meals PO 2 times a day; 270 tabs 1RF 90 days E11.65 - Type 2 diabetes mellitus with hyperglycemia Refilled lisinopril 20 mg PO DAILY 90 tabs 1RF Coding Level of Care Code Est Pt Level 3 (60102) Diagnoses Type 2 diabetes mellitus with hyperglycemia, without long-term current use of insulin E11. Essential hypertension I10 Dyslipidemia E78.5 Osteopenia of multiple sites M85.89
[2022-08-24 12:51] VITALS: BP 118/72; PULSE 84; O2SAT 98
== END 2022-08-24 13:03 | disposition home or self-care (01) ==
PROVIDERS: Visit Provider Internal Medicine
DX: E11.65 Type 2 diabetes mellitus with hyperglycemia (principal); I10 Essential (primary) hypertension; E78.5 Hyperlipidemia, unspecified; M85.89 Other specified disorders of bone density and structure, multiple sites
CPT/HCPCS: 99213

== ENCOUNTER 2022-10-15 12:56 | Outpatient (AMB) | payer OTHER, SELFPAY ==
[2022-10-15 12:57] VITALS: BP 116/62; PULSE 99; O2SAT 98; BMI 20.9
--- NOTE | 2022-10-15 12:57 | MHC.PC.OV ---
Vital Signs 10/15/22 12:57 Height 4 ft 10 in Weight 100 lb 4 oz BMI 20.9 BP 116/62 Blood Pressure Location Lt brachial Position Sitting Pulse 99 Pulse Source Pulse Oximeter Pulse Oximetry (%) 98 Intake Visit Reasons: discuss med change Intake Note: pt is here for discuss med change, stopped jardiance patient is unable to pay it, cost was $30 and now 170$ Allergies Penicillins [PENICILLINS] Allergy (Unknown, Verified 10/15/22 13:16) RASH Medication List - Last Reconciled 10/15/22 by Wendy Espinosa MD cholecalciferol (vitamin D3) 50 mcg PO DAILY glipizide take 2 tabs (10 Mg) in am and 1 tab (5 mg) in pm with meals PO 2 times a day; 90 days lancets As directed lisinopril 20 mg PO DAILY metformin 1,000 mg PO BID ecjgdwywjhtm-xigdrtox-qgzvti 1 tab PO DAILY rosuvastatin 10 mg PO Q2D 90 days Tobacco use date assessed: 05/18/22 Fall risk assessment: No Falls in past year Last assessed Fall Risk: 10/15/22 Dental Screening Dental Screen Date: 10/15/22 Did you have a dental visit in the last 12 months?: Yes Did you have a dental problem in the last 6 months where you did not have access to dental care?: No Was dental information given to patient?: Patient has dentist HPI discuss med change HPI Details 72-year-old lady with diabetes mellitus on metformin 1000 mg twice a day, glipizide 10 mg in the morning and 5 mg at bedtime, and previously was on Jardiance, with last hemoglobin A1c at 7.1% August 2022, here today wanting to be switched to a different medication. She stopped taking Jardiance as it was very expensive. [facility] Medical History Change in stool caliber Diabetic neuropathy Dyslipidemia Essential hypertension History of cancer of left breast Hx SBO Osteopenia of multiple sites Postprandial abdominal bloating Small bowel obstruction Type 2 diabetes mellitus with hyperglycemia, without long-term current use of insulin Surgical History H/O mastectomy History of bowel resection History of section Family History Father No problems noted. Mother No problems noted. Sister Diabetes Daughter No problems noted. Brother Colon cancer Social History Household Members: Spouse Housing: House Alcohol intake: never Patient Tobacco Use Status: Never used Tobacco e-Cigarette/Vaping Use: Never Used Current occupational status: retired Cognitive needs: No Hearing needs: No Vision needs: Yes Questionnaire PHQ-9 Over the last 2 weeks, how often have you been bothered by any of the following problems? Depression Screening Interpretation: Negative Source: Developed by Drs. Rocky Kelly, Nazanin Gorman, Kanu Tang and colleagues, with an educational vanita from [employer]. Thrive Questionnaire Date Thrive assessed: 05/18/22 VIOLETA-7 AMB Questionnaire VIOLETA-7 Date VIOLETA - 7 assessed: 05/18/22 Source: Developed by Drs. Rocky Kelly, Nazanin Gorman, Kanu Tang and colleagues, with an educational vanita from [employer]. Review of Systems Const Denies fatigue, Denies lethargy and Denies malaise Eyes Denies change in vision ENT Reports no additional complaints Card Denies chest pain, Denies palpitations and Denies dyspnea Resp Denies cough and Denies dyspnea GI Denies abdominal pain, Denies melena, Denies hematochezia, Denies change in bowel habits, Denies heartburn and Denies fecal incontinence Reports urinary frequency and Denies dysuria Musc Denies muscle cramps and Denies muscle weakness Neuro Denies burning sensations Endo Denies fatigue, Denies polydipsia and Denies palpitations Physical exam (Primary Care) Vital Signs: Last Vital Signs Pulse 99 10/15/22 12:57 BP 116/62 10/15/22 12:57 Pulse Ox 98 10/15/22 12:57 BMI result Body Mass Index 20.9 Tobacco/Smoking Status: Tobacco use Status Tobacco use date assessed 05/18/22 10/15/22 12:59 Patient Tobacco Use Status Never used Tobacco 10/15/22 12:59 e-Cigarette/Vaping Use Never Used 10/15/22 12:59 Depression Screening Interpretation: Negative Thrive Assessment: Date of Thrive Assessment Date Thrive assessed 05/18/22 10/15/22 12:59 Const General: cooperative, comfortable and no acute distress Nutritional Appearance: average body habitus Orientation/consciousness: patient oriented x3 HENMT Ears: hearing grossly normal bilaterally, TM's normal bilaterally and EAC's normal General nose exam: Normal external nose present and No nasal discharge present Face and sinus: Yes face symmetric Mouth: Normal oral and palatal mucosa present and moist mucous membranes Neck Neck: Yes full ROM, Yes no lymphadenopathy and Yes supple Thyroid: Thyroid normal Resp Effort & Inspection: normal respiratory effort and able to speak in complete sentences Auscultation: clear to auscultation bilaterally Cardio Other: S1-S2 present regular rate and rhythm GI Palpation (GI): Soft to palpation, nontender and no guarding Auscultation: normal bowel sounds Neuro General: patient oriented x3, gait normal, tone normal, moves all extremities, Normal light touch and pain sensation, no focal motor deficits, CN's II-XI intact bilaterally and normal sensation to monofilament Extrem General: Yes full ROM, Yes no joint enlargement, Yes no clubbing, cyanosis or edema, Yes no calf tenderness and Yes normal gait Assessment and Plan Assessment & Plan (1) Type 2 diabetes mellitus with hyperglycemia, without long-term current use of insulin: Code(s): E11.65 - Type 2 diabetes mellitus with hyperglycemia Plan: Will continue on metformin 1000 mg twice a day, and increase dose of glipizide to 10 mg 1 tablet twice a day. Jardiance discontinued by patient due to his high cost. Advised to continue checking fasting sugars morning and night before meals and keep a log of the readings. Call if blood sugar readings are running above 150 mg/dL at all times. Reinforced diabetic diet and regular exercise with patient. Counseled regarding importance of yearly diabetes retinopathy screening. Patient advised to inspect feet daily, for any signs of injury, callus or infection. Compliance with diet and regular exercise again stressed. Blood pressure goal is less than 130/80, goal LDL is less than 100 and goal hemoglobin A1c is less than 7% follow-up appointment made in-2--months, after fasting labs done. Medications: Changed From glipizide take 2 tabs (10 Mg) in am and 1 tab (5 mg) in pm with meals PO 2 times a day; 90 days 270 tabs 1RF E11.65 - Type 2 diabetes mellitus with hyperglycemia To glipizide 10 mg PO BID 180 tabs 0RF 90 days E11.65 - Type 2 diabetes mellitus with hyperglycemia Coding Level of Care Code Est Pt Level 3 (34497) Diagnoses Type 2 diabetes mellitus with hyperglycemia, without long-term current use of insulin E11.65
== END 2022-10-15 14:34 | disposition home or self-care (01) ==
PROVIDERS: PCP Internal Medicine; Visit Provider Internal Medicine
DX: E11.65 Type 2 diabetes mellitus with hyperglycemia (principal)
CPT/HCPCS: 99213

== ENCOUNTER 2022-12-14 09:31 | Outpatient (REF) | payer OTHER, SELFPAY ==
[2022-12-14 12:36] LABS: Estimated Average Glucose 160 mg/dL; Hemoglobin A1c % 7.2 % (<6.0)
[2022-12-14 13:11] LABS: Alanine Aminotransferase 20 U/L (0-31); Anion Gap 15 (12-20); Aspartate Amino Transferase 19 U/L (5-31); Blood Urea Nitrogen 18 mg/dL (9-16); Calcium 9.5 mg/dL (8.4-10.2); Carbon Dioxide 24 mmol/L (22-29); Chloride 107 mmol/L (96-108); Cholesterol 157 mg/dL (<200); Estimated Glomerular Filt Rate > 60; Glucose Fasting 122 mg/dL (60-99); HDL Cholesterol 56 mg/dL (>40); LDL Cholesterol Calculated 64 mg/dL (<100); Potassium 3.9 mmol/L (3.3-5.1); Sodium 142 mmol/L (135-145); Triglycerides 185 mg/dL (<150)
[2022-12-14 13:29] LABS: Vitamin D 25-OH Total 93.1 ng/mL (>30)
== END 2022-12-14 09:32 | disposition home or self-care (01) ==
LOC: HO.HMGCLDS 09:31
PROVIDERS: PCP Internal Medicine; Visit Provider Internal Medicine
DX: E11.65 Type 2 diabetes mellitus with hyperglycemia (principal); I10 Essential (primary) hypertension; E78.5 Hyperlipidemia, unspecified; M85.89 Other specified disorders of bone density and structure, multiple sites
CPT/HCPCS: 36415; 80048; 80061; 82306; 83036; 84450; 84460

== ENCOUNTER 2022-12-19 09:18 | Outpatient (AMB) | payer OTHER, SELFPAY ==
[2022-12-19 09:26] VITALS: BP 120/60; PULSE 70; O2SAT 100; BMI 21.3
--- NOTE | 2022-12-19 09:26 | MHC.PC.OV ---
Vital Signs 12/19/22 09:26 Height 4 ft 10 in Weight 102 lb BMI 21.3 BP 120/60 Blood Pressure Location Lt brachial Position Sitting Pulse 70 Pulse Source Pulse Oximeter Pulse Oximetry (%) 100 Oxygen Delivery Method Room Air Intake Visit Reasons: Annual Physical Intake Note: pt is here for a PE pt will have the flu vaccine at [facility] Allergies Penicillins [PENICILLINS] Allergy (Unknown, Verified 01/17/23 02:12) RASH Medication List - Last Reconciled 12/19/22 by Wendy Espinosa MD cholecalciferol (vitamin D3) 50 mcg PO DAILY glipizide 10 mg in the morning and 5 mg at night orally 2 times a day; lancets As directed lisinopril 20 mg PO DAILY metformin 1,000 mg PO BID uyitwshkapfs-shsbaiwu-dqpiwm 1 tab PO DAILY rosuvastatin 10 mg PO Q2D 90 days Tobacco use date assessed: 12/19/22 Fall risk assessment: No Falls in past year Last assessed Fall Risk: 12/19/22 Dental Screening Dental Screen Date: 12/19/22 Did you have a dental visit in the last 12 months?: No Did you have a dental problem in the last 6 months where you did not have access to dental care?: No Was dental information given to patient?: No HPI Annual Physical HPI Details 72-year-old lady with history of breast cancer on left, has diabetes mellitus, hyperlipidemia and hypertension, here today for her physical exam. She has been feeling fine, has been taking her medications as directed, and has tried cutting back a lot on her rice and pastry intake. Latest hemoglobin A1c however still elevated at 7.2% [facility] Medical History Change in stool caliber Postprandial abdominal bloating Hx SBO History of cancer of left breast Osteopenia of multiple sites Diabetic neuropathy Small bowel obstruction Essential hypertension Dyslipidemia Type 2 diabetes mellitus with hyperglycemia, without long-term current use of insulin Surgical History History of bowel resection History of section H/O mastectomy Family History Father No problems noted. Mother No problems noted. Sister Diabetes Daughter No problems noted. Brother Colon cancer Social History Household Members: Spouse Housing: House Alcohol intake: never Patient Tobacco Use Status: Never used Tobacco e-Cigarette/Vaping Use: Never Used Current occupational status: retired Cognitive needs: No Hearing needs: No Vision needs: Yes Questionnaire Thrive Questionnaire Date Thrive assessed: 05/18/22 VIOLETA-7 AMB Questionnaire VIOLETA-7 Date VIOLETA - 7 assessed: 05/18/22 Source: Developed by Drs. Rocky Kelly, Nazanin Gorman, Kanu Tang and colleagues, with an educational vanita from [employer]. Review of Systems Const All systems reviewed & are unremarkable except as noted in HPI and below Reports no additional complaints Eyes Details: Has an appointment for Dr. Prince for her diabetes retinopathy screening Reports no additional complaints ENT Reports no additional complaints Card Reports no additional complaints Resp Reports no additional complaints GI Reports no additional complaints Reports no additional complaints Musc Reports no additional complaints Skin/Breast Reports system reviewed and no additional complaints, except as documented Neuro Reports no additional complaints Psych Reports no additional complaints Endo Reports no additional complaints Ascencion/Lymph Reports no additional complaints Aller/Immun Reports no additional complaints Physical exam (Primary Care) Vital Signs: Last Vital Signs Pulse 70 12/19/22 09:26 BP 120/60 12/19/22 09:26 Pulse Ox 100 12/19/22 09:26 Oxygen Delivery Method Room Air 12/19/22 09:26 BMI result Body Mass Index 21.3 Tobacco/Smoking Status: Tobacco use Status Tobacco use date assessed 12/19/22 12/19/22 09:29 Patient Tobacco Use Status Never used Tobacco 12/19/22 09:26 e-Cigarette/Vaping Use Never Used 12/19/22 09:26 Thrive Assessment: Date of Thrive Assessment Date Thrive assessed 05/18/22 12/19/22 09:26 Const General: cooperative, comfortable and no acute distress Nutritional Appearance: average body habitus Orientation/consciousness: patient oriented x3 HENMT Ears: hearing grossly normal bilaterally, TM's normal bilaterally and EAC's normal General nose exam: Normal external nose present and No nasal discharge present Face and sinus: Yes face symmetric Mouth: Normal oral and palatal mucosa present and moist mucous membranes Neck Neck: Yes full ROM, Yes no lymphadenopathy and Yes supple Thyroid: Thyroid normal Resp Effort & Inspection: normal respiratory effort and able to speak in complete sentences Auscultation: clear to auscultation bilaterally Cardio Other: S1-S2 present regular rate and rhythm GI Palpation (GI): Soft to palpation, nontender and no guarding Auscultation: normal bowel sounds General: Yes no CVA tenderness Back/Spine/Pelvis Back: no CVA tenderness and No back tenderness Skin General skin exam: no rashes or lesions noted Neuro General: patient oriented x3, gait normal, tone normal, moves all extremities, Normal light touch and pain sensation, no focal motor deficits, CN's II-XI intact bilaterally and normal sensation to monofilament Extrem General: Yes full ROM, Yes no joint enlargement, Yes no clubbing, cyanosis or edema, Yes no calf tenderness and Yes normal gait Psych Appearance: grossly normal and well kempt Mental Status: mental status grossly normal Speech and movement: Normal speech and movement present Affect: normal affect Attitude: cooperative Thought process: Normal thought process present Immunizations pneumoc 20-jose conj-dip cr(PF) 0.5 mL IM syringe Performing Provider: Wendy Espinosa MD Performing Location: [facility] Administered by: Dunia Faith CMA on 12/19/22 10:39 Dose Route Admin Location Dispensed Lot Number Expiration Date [address] Boss 0.5 mL IM Right Deltoid 0.5 mL [id number] 01/02/24 0643-5846-89 [employer] VIS Given Date VIS Provided VIS Publication Date 12/19/22 Single Vaccine 21 Eligibility Eligibility Date Funding Source Not [facility] Eligible 12/19/22 Private Assessment and Plan Assessment & Plan (1) Annual visit for general adult medical examination with abnormal findings: Code(s): Z00.01 - Encounter for general adult medical examination with abnormal findings Plan: Reviewed recent fasting lab results with patient. Recommended dental visit every 6 months and regular eye exams once a year. Take adequate calcium in diet and vitamin-D 3 at 2000 IU per cap once a day, in addition to weight-bearing exercises to help maintain good muscle tone and weight control. Instructed to do self-breast exam, and recommended to get yearly mammogram, already scheduled and she also had a bone density scan done earlier which showed presence of osteopenia in her lower back and left hip and thigh. She is up-to-date with her screening colonoscopy. Reminded to get her COVID booster and her flu shot, Prevnar 20 given today (2) Type 2 diabetes mellitus with hyperglycemia, without long-term current use of insulin: Code(s): E11.65 - Type 2 diabetes mellitus with hyperglycemia Plan: Recent lab results reviewed with patient, with sugar and hemoglobin A1c stable but at goal of less than 7%. Continue with present medications, continue to check fasting blood sugar at home, maintain log and bring to next appointment for review. Reinforced diabetic diet and regular exercise with patient. Counseled regarding importance of yearly diabetes retinopathy screening. Patient advised to inspect feet daily, for any signs of injury, callus or infection. Compliance with diet and regular exercise again stressed. Blood pressure goal is less than 130/80, goal LDL is less than 100 and goal hemoglobin A1c is less than 7% follow-up appointment made in--3-months, after fasting labs done. (3) Diabetic neuropathy: Code(s): E11.40 - Type 2 diabetes mellitus with diabetic neuropathy, unspecified (4) Essential hypertension: Code(s): I10 - Essential (primary) hypertension Plan: Blood pressure at goal of less than 130/80. Continue with current medication. Reinforced importance of following a low sodium diet, getting regular exercise, and lowering stress levels. (5) Dyslipidemia: Code(s): E78.5 - Hyperlipidemia, unspecified Plan: Reviewed recent fasting lipid profile with patient with levels within normal limits except for elevated triglycerides . Continue with rosuvastatin 10 mg 1 tablet every other day, , in addition to adherence to low-cholesterol diet and regular exercise, at least 30 minutes 3 to 4 times a week. Advised patient to make healthy food choices, eat more fruits, vegetables, whole grains, wild caught fish and low-fat dairy. Limit amount of meat and fried or fatty food products, as well as processed foods and fast foods. Follow-up scheduled with repeat fasting lipid panel in 3 months. (6) Osteopenia of multiple sites: Code(s): M85.89 - Other specified disorders of bone density and structure, multiple sites Plan: Discussed results of bone density scan with patient which showed presence of osteopenia. Emphasized importance of staying active doing regular weight-bearing exercise, continue taking multivitamins with calcium and continue with vitamin-D 3 supplements 50 mcg daily. Orders: Orders MM tomosynthesis screening RT 12/19/22 Z12.31 - Encounter for screening mammogram for malignant neoplasm of breast Microalbumin, Random (w Creat) 04/04/23 E11.65 - Type 2 diabetes mellitus with hyperglycemia, E11.40 - Type 2 diabetes mellitus with diabetic neuropathy, unspecified, I10 - Essential (primary) hypertension, E78.5 - Hyperlipidemia, unspecified, M85.89 - Other specified disorders of bone density and structure, multiple sites, Z78.0 - Asymptomatic menopausal state, Z00.01 - Encounter for general adult medical examination with abnormal findings Comprehensive Badger. Panel Fast 04/04/23 E11.65 - Type 2 diabetes mellitus with hyperglycemia, E11.40 - Type 2 diabetes mellitus with diabetic neuropathy, unspecified, I10 - Essential (primary) hypertension, E78.5 - Hyperlipidemia, unspecified, M85.89 - Other specified disorders of bone density and structure, multiple sites, Z78.0 - Asymptomatic menopausal state, Z00.01 - Encounter for general adult medical examination with abnormal findings Pneumococcal 20 Immunization 12/19/22 Z23 - Encounter for immunization Lipid Panel 04/04/23 E11.65 - Type 2 diabetes mellitus with hyperglycemia, E11.40 - Type 2 diabetes mellitus with diabetic neuropathy, unspecified, I10 - Essential (primary) hypertension, E78.5 - Hyperlipidemia, unspecified, M85.89 - Other specified disorders of bone density and structure, multiple sites, Z78.0 - Asymptomatic menopausal state, Z00.01 - Encounter for general adult medical examination with abnormal findings Hemoglobin A1c 04/04/23 E11.65 - Type 2 diabetes mellitus with hyperglycemia, E11.40 - Type 2 diabetes mellitus with diabetic neuropathy, unspecified, I10 - Essential (primary) hypertension, E78.5 - Hyperlipidemia, unspecified, M85.89 - Other specified disorders of bone density and structure, multiple sites, Z78.0 - Asymptomatic menopausal state, Z00.01 - Encounter for general adult medical examination with abnormal findings Vitamin D 25-OH Total 04/04/23 E11.65 - Type 2 diabetes mellitus with hyperglycemia, E11.40 - Type 2 diabetes mellitus with diabetic neuropathy, unspecified, I10 - Essential (primary) hypertension, E78.5 - Hyperlipidemia, unspecified, M85.89 - Other specified disorders of bone density and structure, multiple sites, Z78.0 - Asymptomatic menopausal state, Z00.01 - Encounter for general adult medical examination with abnormal findings Medications: Refilled empagliflozin (Jardiance) 10 mg PO QAM 30 tabs 4RF E11.65 - Type 2 diabetes mellitus with hyperglycemia Coding Level of Care Code Est Pt Prev Care >65y(09084) Diagnoses Annual visit for general adult medical examination with abnormal findings Z00.01 Type 2 diabetes mellitus with hyperglycemia, without long-term current use of insulin E11.65 Diabetic neuropathy E11.40 Essential hypertension I10 Dyslipidemia E78.5 Osteopenia of multiple sites M85.89
== END 2022-12-19 10:45 | disposition home or self-care (01) ==
PROVIDERS: PCP Internal Medicine; Visit Provider Internal Medicine
DX: Z00.00 Encounter for general adult medical examination without abnormal findings (principal); E11.65 Type 2 diabetes mellitus with hyperglycemia; E11.40 Type 2 diabetes mellitus with diabetic neuropathy, unspecified; Z23 Encounter for immunization; E78.5 Hyperlipidemia, unspecified; M85.89 Other specified disorders of bone density and structure, multiple sites
CPT/HCPCS: 90471; 90677; 99397

== ENCOUNTER 2022-12-27 10:16 | Outpatient (REF) | payer OTHER, SELFPAY ==
--- NOTE | ~2022-12-27 | MM_ITS ---
EXAMINATION: MM SCREENING DIGITAL BREAST TOMOSYNTHESIS, BILATERAL CLINICAL INFORMATION: Screening. Asymptomatic. The patient is status post left mastectomy. COMPARISON: Mammography: This study is compared with prior exams dating back to 2016. TECHNIQUE: Digital breast tomosynthesis is performed in both the craniocaudal and mediolateral oblique views along with computer-aided detection (CAD). Synthesized 2D images are generated from the tomosynthesis. FINDINGS: The breasts are heterogeneously dense, which may obscure small masses (ACR BI-RADS breast composition Category c). There are no significant masses, abnormal calcifications, or other abnormalities in the right breast. MM/MM tomosynthesis screening RT IMPRESSION: No mammographic evidence of malignancy. ASSESSMENT: BI-RADS BI-RADS 1 - Negative RECOMMENDATION: Routine annual mammography screening. 1 year F/U This examination should not preclude the clinical evaluation of a suspicious palpable abnormality. This patient's information was entered into a reminder system with a target due date for their next mammogram.
== END 2022-12-27 10:17 | disposition home or self-care (01) ==
LOC: HO.MAMMO 10:16
PROVIDERS: PCP Internal Medicine; Visit Provider Internal Medicine
DX: Z12.31 Encounter for screening mammogram for malignant neoplasm of breast (principal)
CPT/HCPCS: 77063; 77067

== ENCOUNTER → 2022-12-27 10:30 | Outpatient (BNV) | payer OTHER, SELFPAY | PROVIDERS: PCP Internal Medicine; Visit Provider Radiology Diagnostic Radiology | DX: Z12.31 Encounter for screening mammogram for malignant neoplasm of breast (principal) | CPT/HCPCS: 77063; 77067 ==

== ENCOUNTER 2023-01-11 09:04 | Outpatient (AMB) | payer OTHER, SELFPAY ==
[2023-01-11 09:15] VITALS: BP 120/74; PULSE 104; TEMP 36.4; O2SAT 98; BMI 21.3
--- NOTE | 2023-01-11 09:15 | AM.OFFWIN_ITS ---
Intake Vital Signs 01/11/23 09:15 Height 4 ft 10 in Weight 102 lb BMI 21.3 BP 120/74 Blood Pressure Location Rt brachial Position Sitting Pulse 104 H Pulse Source Pulse Oximeter Temp 97.6 F Temp Source Temporal Artery Scan Pulse Oximetry (%) 98 Oxygen Delivery Method Room Air Intake Visit Reasons: EP Insect Bite RT thigh/inside spreading Intake Note: pt is here for c/o insect bite right inner thigh Patient Tobacco Use Status: Never used Tobacco Allergies Penicillins [PENICILLINS] Allergy (Unknown, Verified 01/11/23 09:16) RASH Do you need a note to return to daycare/school/sports/work: Yes HPI HPI Comments History of Present Illness Details This is a 72-year-old female who presents to the office today for sick visit. Patient complaining of a rash to her inner right thigh. Patient believe she was bitten by an insect approximately 2 weeks ago. She states the area got really red, swollen, and warm. Patient has been using triple antibiotic cream, itch relief cream, and hydrocortisone cream. She states the area of redness, swelling, and warmth has actually significantly improved. However, she started to developed a bumpy itchy rash surrounding the bite area the past several days. She denies any fevers or chills. She denies any myalgias/arthralgias. She denies any headaches. She denies any fatigue. [facility] Medical History Change in stool caliber Diabetic neuropathy Dyslipidemia Essential hypertension History of cancer of left breast Hx SBO Osteopenia of multiple sites Postprandial abdominal bloating Small bowel obstruction Type 2 diabetes mellitus with hyperglycemia, without long-term current use of insulin Surgical History H/O mastectomy History of bowel resection History of section Family History Father No problems noted. Mother No problems noted. Sister Diabetes Daughter No problems noted. Brother Colon cancer Social History Household Members: Spouse Housing: House Alcohol intake: never Patient Tobacco Use Status: Never used Tobacco e-Cigarette/Vaping Use: Never Used Current occupational status: retired Cognitive needs: No Hearing needs: No Vision needs: Yes Review of Systems Const All systems reviewed & are unremarkable except as noted in HPI and below Reports no additional complaints Eyes Reports no additional complaints ENT Reports no additional complaints Card Reports no additional complaints Resp Reports no additional complaints GI Reports no additional complaints Reports no additional complaints Musc Reports no additional complaints Skin/Breast Reports system reviewed and no additional complaints, except as documented Neuro Reports no additional complaints Psych Reports no additional complaints Endo Reports no additional complaints Ascencion/Lymph Reports no additional complaints Aller/Immun Reports no additional complaints Physical Exam Vital Signs: Last Vital Signs Temp 97.6 F 01/11/23 09:15 Pulse 104 H 01/11/23 09:15 BP 120/74 01/11/23 09:15 Pulse Ox 98 01/11/23 09:15 Oxygen Delivery Method Room Air 01/11/23 09:15 BMI result Body Mass Index 21.3 Const Other: Vital signs reviewed. Constitutional: Non-toxic appearing. No acute distress. Well-developed and well-nourished. HEENT: Normocephalic and atraumatic. Tympanic membranes without erythema, edema, or bulging bilaterally. External auditory canals without erythema or edema bilaterally. Moist mucous membranes. No pharyngeal erythema or exudates. Skin: Warm and dry. Small circular hyperpigmented area on the right inner thigh with a surrounding erythemaotus maculopapular rash. No evidence of cellulitis or abscess. Neck: Full and painless range of motion. No cervical lymphadenopathy. Cardio: Regular rate and rhythm. No murmurs, gallops, or rubs. No lower extremity edema. No JVD. Pulmonary: No respiratory distress. No accessory muscle usage. Clear to auscultation bilaterally without wheezing, crackles, or rhonchi. Gastrointestinal: Soft, nontender, and nondistended in all 4 quadrants. No rmoactive bowel sounds in all 4 quadrants. Genitourinary: No CVA tenderness. Musculoskeletal: Normal range of motion in joints throughout the body. No deformity or other signs of injury. Neuro: Alert and oriented x4. Cranial nerves 2-12 grossly intact. No focal deficits appreciated. Psych: Normal mood and affect. Assessment & Plan Assessment & Plan (1) Insect bite of right leg: Code(s): S80.861A - Insect bite (nonvenomous), right lower leg, initial encounter; W57.XXXA - Bitten or stung by nonvenomous insect and other nonvenomous arthropods, initial encounter (2) Contact dermatitis: Code(s): L25.9 - Unspecified contact dermatitis, unspecified cause Plan This is a 72-year-old female presenting to the office complaining a rash to her right inner thigh in the setting of a suspected insect bite. Physical examination, there is a small area of hyperpigmentation surrounded by an blotchy erythematous maculopapular rash. History and physical most consistent with an insect bite with surrounding contact dermatitis. There is no evidence of cellulitis or an abscess. Patient was sent home on triamcinolone cream twice daily. She was instructed to follow-up here or proceed to the emergency room if she were to develop erythema, lymphangitic streaking, fever/chills, or other systemic symptoms. Patient verbalized understanding and is agreeable with the plan. Medications: New triamcinolone acetonide 0.1% 1 appl topical BID 15 grams 0RF Coding Level of Care Code Est Pt Level 3 (18526) Diagnoses Insect bite of right leg S80.861A; W57.XXXA Contact dermatitis L25.9
== END 2023-01-11 09:51 | disposition home or self-care (01) ==
PROVIDERS: PCP Internal Medicine; Visit Provider Physician Assistant Medical
DX: S80.861A Insect bite (nonvenomous), right lower leg, initial encounter (principal); W57.XXXA Bitten or stung by nonvenomous insect and other nonvenomous arthropods, initial encounter; L25.9 Unspecified contact dermatitis, unspecified cause
CPT/HCPCS: 99213

== ENCOUNTER 2023-03-13 08:57 | Outpatient (REF) | payer OTHER, SELFPAY ==
[2023-03-13 11:54] LABS: Estimated Average Glucose 154 mg/dL; Hemoglobin A1C 198.1791 umol/L
[2023-03-13 12:16] LABS: Creatinine Urine 64.15 mg/dL; Microalbum/Creatinine Ratio Ur 35.8 ug/mg cr (<30)
[2023-03-13 12:21] LABS: Alanine Aminotransferase 20 U/L (0-31); Albumin Level 4.3 g/dL (3.5-5.0); Alkaline Phosphatase 54 U/L (39-117); Anion Gap 16 (12-20); Aspartate Amino Transferase 21 U/L (5-31); Bilirubin Total 0.5 mg/dL (0.0-1.0); Blood Urea Nitrogen 16 mg/dL (9-16); Calcium 9.6 mg/dL (8.4-10.2); Carbon Dioxide 26 mmol/L (22-29); Chloride 104 mmol/L (96-108); Cholesterol 149 mg/dL (<200); Estimated Glomerular Filt Rate > 60; Glucose Fasting 145 mg/dL (60-99); HDL Cholesterol 55 mg/dL (>40); LDL Cholesterol Calculated 41 mg/dL (<100); Potassium 3.9 mmol/L (3.3-5.1); Sodium 142 mmol/L (135-145); Total Protein 7.5 g/dL (6.5-8.0); Triglycerides 265 mg/dL (<150); Vitamin D 25-OH Total 112.1 ng/mL (>30)
== END 2023-03-13 08:58 | disposition home or self-care (01) ==
LOC: HO.HMGCLDS 08:57
PROVIDERS: PCP Internal Medicine; Visit Provider Internal Medicine
DX: Z00.01 Encounter for general adult medical examination with abnormal findings (principal); E11.65 Type 2 diabetes mellitus with hyperglycemia; E11.40 Type 2 diabetes mellitus with diabetic neuropathy, unspecified; I10 Essential (primary) hypertension; E78.5 Hyperlipidemia, unspecified; M85.89 Other specified disorders of bone density and structure, multiple sites; Z78.0 Asymptomatic menopausal state
CPT/HCPCS: 36415; 80053; 80061; 82043; 82306; 82570; 83036

== ENCOUNTER 2023-03-15 11:17 | Outpatient (AMB) | payer MEDICARE, SELFPAY ==
[2023-03-15 11:38] VITALS: BP 120/68; PULSE 102; O2SAT 97; BMI 21.8
--- NOTE | 2023-03-15 11:38 | MHC.PC.OV ---
Vital Signs 03/15/23 11:38 Height 4 ft 10 in Weight 104 lb 4 oz BMI 21.8 BP 120/68 Blood Pressure Location Rt brachial Position Sitting Pulse 102 H Pulse Source Pulse Oximeter Pulse Oximetry (%) 97 Oxygen Delivery Method Room Air Intake Visit Reasons: 3 month fu Intake Note: Pt is here to follow up for her lab results Allergies Penicillins [PENICILLINS] Allergy (Unknown, Verified 03/15/23 12:33) RASH Medication List - Last Reconciled 03/15/23 by Wendy Espinosa MD cholecalciferol (vitamin D3) 50 mcg PO DAILY empagliflozin (Jardiance) 10 mg PO QAM glipizide 10 mg in the morning and 5 mg at night orally 2 times a day; lancets As directed lisinopril 20 mg PO DAILY metformin 1,000 mg PO BID [id number]-xiryvchm-ljkpst 1 tab PO DAILY rosuvastatin 10 mg PO Q2D 90 days Tobacco use date assessed: 03/15/23 Fall risk assessment: No Falls in past year Last assessed Fall Risk: 03/15/23 Dental Screening Dental Screen Date: 03/15/23 Did you have a dental visit in the last 12 months?: No Did you have a dental problem in the last 6 months where you did not have access to dental care?: No Was dental information given to patient?: No HPI 3 month fu HPI Details 72-year-old lady with history of breast cancer, here today for follow-up on her hypertension, lipids and diabetes mellitus. She has been taking her medications but admits to sometimes forgetting to take her metformin dose at night. Has been trying to adhere to recommended diet, cutting back on her rice anything pastries. He has been feeling well with no complaints at present time, and latest hemoglobin A1c done 2 days ago came back at 7%, lower than last check. [facility] Medical History Change in stool caliber Postprandial abdominal bloating Hx SBO History of cancer of left breast Osteopenia of multiple sites Diabetic neuropathy Small bowel obstruction Essential hypertension Dyslipidemia Type 2 diabetes mellitus with hyperglycemia, without long-term current use of insulin Surgical History History of bowel resection History of section H/O mastectomy Family History Father No problems noted. Mother No problems noted. Sister Diabetes Daughter No problems noted. Brother Colon cancer Social History Household Members: Spouse Housing: House Alcohol intake: never Patient Tobacco Use Status: Never used Tobacco e-Cigarette/Vaping Use: Never Used Current occupational status: retired Cognitive needs: No Hearing needs: No Vision needs: Yes Questionnaire Thrive Questionnaire Date Thrive assessed: 05/18/22 VIOLETA-7 AMB Questionnaire VIOLETA-7 Date VIOLETA - 7 assessed: 05/18/22 Source: Developed by Drs. Rocky Kelly, Nazanin Gorman, Kanu Tang and colleagues, with an educational vanita from [employer]. Review of Systems Const All systems reviewed & are unremarkable except as noted in HPI and below Reports no additional complaints Eyes Details: Has an appointment with Dr. Prince for her diabetes retinopathy Reports no additional complaints ENT Reports no additional complaints Card Reports no additional complaints Resp Reports no additional complaints GI Reports no additional complaints Reports no additional complaints Musc Reports no additional complaints Skin/Breast Reports system reviewed and no additional complaints, except as documented Neuro Reports no additional complaints Psych Reports no additional complaints Endo Reports no additional complaints Ascencion/Lymph Reports no additional complaints Aller/Immun Reports no additional complaints Physical exam (Primary Care) Vital Signs: Last Vital Signs Pulse 112 H 03/15/23 11:38 BP 120/68 03/15/23 11:38 Pulse Ox 97 03/15/23 11:38 Oxygen Delivery Method Room Air 03/15/23 11:38 BMI result Body Mass Index 21.8 Tobacco/Smoking Status: Tobacco use Status Tobacco use date assessed 03/15/23 03/15/23 11:42 Patient Tobacco Use Status Never used Tobacco 03/15/23 11:42 e-Cigarette/Vaping Use Never Used 03/15/23 11:42 Thrive Assessment: Date of Thrive Assessment Date Thrive assessed 05/18/22 03/15/23 11:42 Const General: cooperative, comfortable and no acute distress Nutritional Appearance: average body habitus Orientation/consciousness: patient oriented x3 HENMT Ears: hearing grossly normal bilaterally, TM's normal bilaterally and EAC's normal General nose exam: Normal external nose present and No nasal discharge present Face and sinus: Yes face symmetric Mouth: Normal oral and palatal mucosa present and moist mucous membranes Neck Neck: Yes full ROM, Yes no lymphadenopathy and Yes supple Thyroid: Thyroid normal Resp Effort & Inspection: normal respiratory effort and able to speak in complete sentences Auscultation: clear to auscultation bilaterally Cardio Other: S1-S2 present regular rate and rhythm GI Palpation (GI): Soft to palpation, nontender and no guarding Auscultation: normal bowel sounds General: Yes no CVA tenderness Back/Spine/Pelvis Back: no CVA tenderness and No back tenderness Skin General skin exam: no rashes or lesions noted Neuro General: patient oriented x3, gait normal, tone normal, moves all extremities, Normal light touch and pain sensation, no focal motor deficits, CN's II-XI intact bilaterally and normal sensation to monofilament Extrem General: Yes full ROM, Yes no joint enlargement, Yes no clubbing, cyanosis or edema, Yes no calf tenderness and Yes normal gait Psych Appearance: grossly normal and well kempt Mental Status: mental status grossly normal Speech and movement: Normal speech and movement present Affect: normal affect Attitude: cooperative Thought process: Normal thought process present Results Reviewed Results Reviewed: ENTERED: 03/13/[address]: ORDERED: CMP Fast, Lipid Panel, Vitamin D 25-OH Test Result Flag Reference Site Sodium 142 135-145 mmol/L Potassium 3.9 3.3-5.1 mmol/L CL 104 96-108 mmol/L CO2 26 22-29 mmol/L Gap 16 12-20 BUN 16 9-16 mg/dL Creat 0.79 0.5-1.4 mg/dL EGFR > 60 NOTE: For -Citizen Of [place] individuals, multiply the result by 1.210. Chronic Kidney Disease: Estimated GFR < 60 mL/min/1.73m2 Severe Kidney Disease: Estimated GFR < 15 mL/min/1.73m2 FBS 145 H 60-99 mg/dL A fasting glucose of 126 mg/dl or greater on more than one occasion is considered diagnostic of diabetes. CA 9.6 8.4-10.2 mg/dL Total Bili 0.5 0.0-1.0 mg/dL AST (GOT) 21 5-31 U/L ALT (GPT) 20 0-31 U/L Protein, Total 7.5 6.5-8.0 g/dL Alb 4.3 3.5-5.0 g/dL Triglyceride 265 H <150 mg/dL Desirable Triglyceride: less than 150 mg/dL Borderline High Triglyceride 150-199 mg/dL High Triglyceride: 200-499 mg/dL Very High Triglyceride: greater than or equal to 5OO mg/dL Cholesterol 149 <200 mg/dL Desirable Cholesterol: less than 200 mg/dL Borderline High Cholesterol: 200-239 mg/dL High Cholesterol: greater than 239 mg/dL LDL Calculated 41 <100 mg/dL Desirable LDL: less than 100 mg/dL Near Optimal/Above Optimal LDL: 110-129 mg/dL Borderline High LDL: 130-159 mg/dL High LDL: 160-189 mg/dL Very High LDL: greater than or equal to 190 mg/dL HDL 55 >40 mg/dL Desirable HDL: greater than 40 mg/dL Note: This HDL assay may give artificially low results in patients with liver disease. Alk Phos 54 39-117 U/L Vit D 25-OH Tot 112.1 >30 ng/mL Health Based Reference Values* < 20 ng/mL Deficient 20-30 ng/mL Insufficient > 30 ng/mL Sufficient Laboratory Tests 12/14/22 03/13/23 03/13/23 09:35 09:02 09:05 Estimat Average Glucose 160 154 Hemoglobin A1c % 7.2 H 7.0 H Urine Creatinine 64.15 Urine Microalbumin 23.0 Microalb/Creat Ratio 35.8 H Assessment and Plan Assessment & Plan (1) Type 2 diabetes mellitus with hyperglycemia, without long-term current use of insulin: Code(s): E11.65 - Type 2 diabetes mellitus with hyperglycemia Plan: Hemoglobin A1c now is at 7%, goal less than 6.5%. Continue with metformin, stressed importance of taking medications as directed, discontinue glipizide continue with empagliflozin and started on Januvia 100 mg per tablet taken once a day. Goes to Dr. Prince for her routine eye exam. (2) Essential hypertension: Code(s): I10 - Essential (primary) hypertension Plan: Blood pressure at goal of less than 130/80. Continue with current medication. Reinforced importance of following a low sodium diet, getting regular exercise, and lowering stress levels. (3) Dyslipidemia: Code(s): E78.5 - Hyperlipidemia, unspecified Plan: Reviewed recent fasting lipid profile with patient with levels within normal limits except for elevated triglycerides. . Continue with , in addition to adherence to low-cholesterol diet and regular exercise, at least 30 minutes 3 to 4 times a week. Advised patient to make healthy food choices, eat more fruits, vegetables, whole grains, wild caught fish and low-fat dairy. Limit amount of meat and fried or fatty food products, as well as processed foods and fast foods. Follow-up scheduled with repeat fasting lipid panel in months. Orders: Orders Alanine Aminotransferase 3 Months - Type 2 diabetes mellitus with hyperglycemia, I10 - Essential (primary) hypertension, E78.5 - Hyperlipidemia, unspecified Basic Metabolic Panel Fasting 3 Months - Type 2 diabetes mellitus with hyperglycemia, I10 - Essential (primary) hypertension, E78.5 - Hyperlipidemia, unspecified Lipid Panel 3 Months - Type 2 diabetes mellitus with hyperglycemia, I10 - Essential (primary) hypertension, E78.5 - Hyperlipidemia, unspecified Hemoglobin A1c 3 Months - Type 2 diabetes mellitus with hyperglycemia, I10 - Essential (primary) hypertension, E78.5 - Hyperlipidemia, unspecified Aspartate Amino Transferase 3 Months - Type 2 diabetes mellitus with hyperglycemia, I10 - Essential (primary) hypertension, E78.5 - Hyperlipidemia, unspecified Medications: New sitagliptin phosphate (Januvia) 100 mg PO DAILY 30 tabs 5RF - Type 2 diabetes mellitus with hyperglycemia Changed From metformin 1,000 mg PO BID 180 tabs 1RF To metformin 1,000 mg PO BID 180 tabs 1RF Refilled empagliflozin (Jardiance) 10 mg PO QAM 30 tabs 5RF - Type 2 diabetes mellitus with hyperglycemia Discontinued glipizide Discontinued Reason: Doctor's Order 10 mg in the morning and 5 mg at night orally 2 times a day; 135 tabs 1RF - Type 2 diabetes mellitus with hyperglycemia Coding Level of Care Code Est Pt Level 4 (92419) Diagnoses Type 2 diabetes mellitus with hyperglycemia, without long-term current use of insulin Essential hypertension I10 Dyslipidemia E78.5
== END 2023-03-15 12:47 | disposition home or self-care (01) ==
PROVIDERS: PCP Internal Medicine; Visit Provider Internal Medicine
DX: E11.65 Type 2 diabetes mellitus with hyperglycemia (principal); I10 Essential (primary) hypertension; E78.5 Hyperlipidemia, unspecified
CPT/HCPCS: 99214

== ENCOUNTER 2023-04-25 11:21 | Outpatient (AMB) | payer MEDICARE, SELFPAY ==
[2023-04-25 11:35] VITALS: BP 132/60; PULSE 99; O2SAT 98; BMI 21.1
--- NOTE | 2023-04-25 11:35 | A.OFFPC_ITS ---
Vital Signs 04/25/23 11:35 Height 4 ft 10 in Weight 101 lb BMI 21.1 BP 132/60 Blood Pressure Location Rt brachial Position Sitting Pulse 99 Pulse Source Pulse Oximeter Pulse Oximetry (%) 98 Oxygen Delivery Method Room Air Intake Visit Reasons: Pre op left eye cataract 05/19 Suresh Intake Note: Pt is here today for her pre-op Lt eye cataract on 05/20/[address] Prince Allergies Penicillins [PENICILLINS] Allergy (Unknown, Verified 04/25/23 12:26) RASH Medication List - Last Reconciled 04/25/23 by Wendy Espinosa MD cholecalciferol (vitamin D3) 50 mcg PO DAILY empagliflozin (Jardiance) 10 mg PO QAM lancets As directed lisinopril 20 mg PO DAILY metformin 1,000 mg PO BID pmqfstjsuvrd-efmfsnda-vhnsby 1 tab PO DAILY rosuvastatin 10 mg PO Q2D 90 days sitagliptin phosphate (Januvia) 100 mg PO DAILY Tobacco use date assessed: 04/25/23 Fall risk assessment: No Falls in past year Last assessed Fall Risk: 04/25/23 Dental Screening Dental Screen Date: 04/25/23 Did you have a dental visit in the last 12 months?: No Was dental information given to patient?: No HPI Pre op left eye cataract 05/19 Suresh HPI Details 72-year-old lady with history of left br east cancer status post mastectomy, has diabetes mellitus, hypertension hyperlipidemia, here today for preoperative exam for left cataract surgery, scheduled on 05/20/2023, requested by Dr. Prince. She is diabetes mellitus, currently stable and controlled on metformin a 1000 mg taken 1 tablet twice a day in addition to empagliflozin 10 mg 1 tablet in a.m. and Januvia 100 mg once a day. Latest hemoglobin A1c is at 7%. Currently takes rosuvastatin 10 mg every other day for hyperlipidemia, with latest fasting labs showed LDL cholesterol at goal at 41 mg/dL but triglycerides elevated. Hypertension is stable and controlled on lisinopril 20 mg once a day. Has been feeling well except for occasional episodes of constipation. [facility] Medical History (Updated 04/25/23 @ 14:07 by Wendy Espinosa MD) Change in stool caliber Postprandial abdominal bloating Hx SBO History of cancer of left breast Osteopenia of multiple sites Diabetic neuropathy Small bowel obstruction Essential hypertension Dyslipidemia Type 2 diabetes mellitus with hyperglycemia, without long-term current use of insulin Surgical History History of bowel resection History of section H/O mastectomy Family History Father No problems noted. Mother No problems noted. Sister Diabetes Daughter No problems noted. Brother Colon cancer Social History Household Members: Spouse Housing: House Alcohol intake: never Patient Tobacco Use Status: Never used Tobacco e-Cigarette/Vaping Use: Never Used Current occupational status: retired Cognitive needs: No Hearing needs: No Vision needs: Yes Questionnaire Thrive Questionnaire Date Thrive assessed: 04/25/23 VIOLETA-7 AMB Questionnaire VIOLETA-7 Date VIOLETA - 7 assessed: 05/18/22 Source: Developed by Drs. Rocky Kelly, Nazanin Gorman, Kanu Tang and colleagues, with an educational vanita from [employer]. Review of Systems Const All systems reviewed & are unremarkable except as noted in HPI and below Reports no additional complaints Eyes Details: Currently sees Dr. Prince for her routine eye exam and retinopathy screening Reports no additional complaints ENT Reports no additional complaints Card Denies chest pain, Denies rapid heart rate, Denies irregular heart rhythm, Denies leg edema, Denies lightheadedness and Denies dyspnea Resp Denies cough and Denies dyspnea GI Denies abdominal pain, Denies melena, Denies bloating, Denies hematochezia, Reports constipation and Denies heartburn Denies urinary frequency, Denies difficulty voiding, Denies nocturia, Denies nipple discharge, Denies urinary incontinence, Denies vaginal odor and Denies vaginal pruritus Musc Reports no additional complaints Skin/Breast Denies breast swelling, Denies breast pain, Denies breast mass, Denies lesions and Denies nipple discharge Neuro Reports no additional complaints Psych Reports no additional complaints Endo Reports no additional complaints Ascencion/Lymph Reports no additional complaints Aller/Immun Reports no additional complaints Physical exam (Primary Care) Vital Signs: Last Vital Signs Pulse 99 04/25/23 11:35 BP 132/60 04/25/23 11:35 Pulse Ox 98 04/25/23 11:35 Oxygen Delivery Method Room Air 04/25/23 11:35 BMI result Body Mass Index 21.1 Tobacco/Smoking Status: Tobacco use Status Tobacco use date assessed 04/25/23 04/25/23 11:36 Patient Tobacco Use Status Never used Tobacco 04/25/23 11:36 e-Cigarette/Vaping Use Never Used 04/25/23 11:36 Thrive Assessment: Date of Thrive Assessment Date Thrive assessed 04/25/23 04/25/23 11:36 Const General: cooperative, comfortable and no acute distress Nutritional Appearance: average body habitus Orientation/consciousness: patient oriented x3 HENMT Ears: TM's normal bilaterally and EAC's normal General nose exam: Normal external nose present and No nasal discharge present Face and sinus: Yes face symmetric Mouth: Normal oral and palatal mucosa present and moist mucous membranes Neck Neck: Yes full ROM, Yes no lymphadenopathy and Yes supple Thyroid: Thyroid normal Chest Other: Left mastectomy scar Resp Effort & Inspection: normal respiratory effort and able to speak in complete sentences Auscultation: clear to auscultation bilaterally Cardio Other: S1-S2 present regular rate and rhythm GI Palpation (GI): Soft to palpation, nontender and no guarding Auscultation: normal bowel sounds General: Yes no CVA tenderness Back/Spine/Pelvis Back: no CVA tenderness and No back tenderness Skin General skin exam: no rashes or lesions noted Neuro General: patient oriented x3, gait normal, tone normal, moves all extremities, Normal light touch and pain sensation, no focal motor deficits, CN's II-XI intact bilaterally and normal sensation to monofilament Extrem General: Yes full ROM, Yes no joint enlargement, Yes no clubbing, cyanosis or edema, Yes no calf tenderness and Yes normal gait Psych Appearance: grossly normal and well kempt Mental Status: mental status grossly normal Speech and movement: Normal speech and movement present Affect: normal affect Attitude: cooperative Thought process: Normal thought process present Results Reviewed Results Reviewed: RUN: 04/25/23 1216 PAGE 1 [facility] [address] [place] [id number] Rn Birthing: Allen Mcmanus M.D. Specimen Inquiry Name: Shaylee Xioa Age/Sex: 72/F : 1950 Unit#: [id number] Attend Dr: Wendy Espinosa MD Re03/13/23 Status: DEP REF Location: HO.HMGCLDS Disch: SPEC : [id number] MORENO: 03/13/23 STATUS: COMP REQ : [id number] RECD: 03/13/[address] [facility] [address]: Wendy Espinosa MD COMP: 03/13/23 ENTERED: 03/13/[address]: ORDERED: CMP Fast, Lipid Panel, Vitamin D 25-OH Test Result Flag Reference Sodium 142 135-145 mmol/L Potassium 3.9 3.3-5.1 mmol/L CL 104 96-108 mmol/L CO2 26 22-29 mmol/L Gap 16 12-20 BUN 16 9-16 mg/dL Creat 0.79 0.5-1.4 mg/dL EGFR > 60 NOTE: For -[place] individuals, multiply the result by 1.210. Chronic Kidney Disease: Estimated GFR < 60 mL/min/1.73m2 Severe Kidney Disease: Estimated GFR < 15 mL/min/1.73m2 FBS 145 H 60-99 mg/dL A fasting glucose of 126 mg/dl or greater on more than one occasion is considered diagnostic of diabetes. CA 9.6 8.4-10.2 mg/dL Total Bili 0.5 0.0-1.0 mg/dL AST (GOT) 21 5-31 U/L ALT (GPT) 20 0-31 U/L Protein, Total 7.5 6.5-8.0 g/dL Alb 4.3 3.5-5.0 g/dL Triglyceride 265 H <150 mg/dL Desirable Triglyceride: less than 150 mg/dL Borderline High Triglyceride 150-199 mg/dL High Triglyceride: 200-499 mg/dL Very High Triglyceride: greater than or equal to 5OO mg/dL Cholesterol 149 <200 mg/dL Desirable Cholesterol: less than 200 mg/dL Borderline High Cholesterol: 200-239 mg/dL High Cholesterol: greater than 239 mg/dL LDL Calculated 41 <100 mg/dL Desirable LDL: less than 100 mg/dL Near Optimal/Above Optimal LDL: 110-129 mg/dL Borderline High LDL: 130-159 mg/dL High LDL: 160-189 mg/dL Very High LDL: greater than or equal to 190 mg/dL HDL 55 >40 mg/dL Desirable HDL: greater than 40 mg/dL Note: This HDL assay may give artificially low results in patients with liver disease. Alk Phos 54 39-117 U/L Vit D 25-OH Tot 112.1 >30 ng/mL Health Based Reference Values* < 20 ng/mL Deficient 20-30 ng/mL Insufficient > 30 ng/mL Sufficient Laboratory Tests 03/13/23 03/13/23 03/13/23 09:02 09:02 09:05 Estimat Average Glucose 154 Hemoglobin A1c % 7.0 H Urine Creatinine 64.15 Urine Microalbumin 23.0 Microalb/Creat Ratio 35.8 H Assessment and Plan Assessment & Plan (1) Preoperative examination: Code(s): Z01.818 - Encounter for other preprocedural examination Plan: 72 year old lady here for pre-op clearance for cataract surgery OS anesthesia, scheduled for 05/20/2023. She has diabetes mellitus, hypertension, hyperlipidemia , controlled with present treatment. Preoperative exam and recent labs done were unremarkable EKG done today showed normal sinus rhythm with right bundle branch block, no acute ST-T changes seen. Patient with low cardiac risk index for proposed surgery . (2) Type 2 diabetes mellitus with hyperglycemia, without long-term current use of insulin: Code(s): E11.65 - Type 2 diabetes mellitus with hyperglycemia Plan: Continue metformin, sitagliptin and empagliflozin same dose reinforced importance of following recommended diet and getting regular exercise (3) Essential hypertension: Code(s): I10 - Essential (primary) hypertension Plan: Blood pressure at goal of less than 130/80. Continue with current medication. Reinforced importance of following a low sodium diet, getting regular exercise, and lowering stress levels. (4) Dyslipidemia: Code(s): E78.5 - Hyperlipidemia, unspecified Plan: Continue rosuvastatin 10 mg 1 tablet every other day, and continue with adherence to low-cholesterol diet and regular exercise. Medications: New docusate sodium 200 mg (2 x 100 mg) PO DAILY 60 caps 5RF Coding Level of Care Code Est Pt Level 4 (46978) Diagnoses Preoperative examination Z01.818 Type 2 diabetes mellitus with hyperglycemia, without long-term current use of insulin E11.65 Essential hypertension I10 Dyslipidemia E78.5
== END 2023-04-25 15:34 | disposition home or self-care (01) ==
PROVIDERS: PCP Internal Medicine; Visit Provider Internal Medicine
DX: Z01.818 Encounter for other preprocedural examination (principal); E11.65 Type 2 diabetes mellitus with hyperglycemia; I10 Essential (primary) hypertension; E78.5 Hyperlipidemia, unspecified
CPT/HCPCS: 99214

== ENCOUNTER 2023-05-15 10:11 | Outpatient (AMB) | payer MEDICARE, SELFPAY ==
[2023-05-15 10:53] VITALS: BP 120/60; PULSE 105; TEMP 36.3; O2SAT 98; BMI 20.1
--- NOTE | 2023-05-15 10:53 | AM.OFFWIN_ITS ---
Intake Vital Signs 05/15/23 10:53 Height 4 ft 10 in Weight 96 lb BMI 20.1 BP 120/60 Blood Pressure Location Lt brachial Position Sitting Pulse 105 H Pulse Source Pulse Oximeter Temp 97.4 F Temp Source Temporal Artery Scan Pulse Oximetry (%) 98 Oxygen Delivery Method Room Air Intake Visit Reasons: EP RT arm pain Intake Note: pt is here today for rt arm pain started 3 weeks ago Patient Tobacco Use Status: Never used Tobacco Allergies Penicillins [PENICILLINS] Allergy (Intermediate, Verified 05/15/23 10:53) RASH Medication List - Last Reconciled 05/15/23 by ROSALIO Rob cholecalciferol (vitamin D3) 50 mcg PO DAILY cyclobenzaprine 5 mg PO Q12H docusate sodium 100 mg PO DAILY empagliflozin (Jardiance) 10 mg PO QAM lancets As directed lisinopril 20 mg PO DAILY metformin 1,000 mg PO BID tuoaxduraxkr-oyaqzwya-mplvai 1 tab PO DAILY rosuvastatin 10 mg PO Q2D 90 days sitagliptin phosphate (Januvia) 100 mg PO DAILY Do you need a note to return to daycare/school/sports/work: No HPI HPI Comments History of Present Illness Details 72-year-old female presents today compla ining of right shoulder pain and immobility for the last 3 weeks. The patient reports she is diabetic. She denies any injury or trauma to the area did not fall or do any heavy lifting. [facility] Medical History (Updated 05/15/23 @ 11:14 by ROSALIO Rob) Right shoulder pain Constipation Change in stool caliber Postprandial abdominal bloating Hx SBO History of cancer of left breast Osteopenia of multiple sites Diabetic neuropathy Small bowel obstruction Essential hypertension Dyslipidemia Type 2 diabetes mellitus with hyperglycemia, without long-term current use of insulin Surgical History History of bowel resection History of section H/O mastectomy Family History Father No problems noted. Mother No problems noted. Sister Diabetes Daughter No problems noted. Brother Colon cancer Social History (Updated 05/14/23 @ 15:29 by Steph Anthony RN) Household Members: Spouse and Other Household Members Other:: daughter Housing: House Are you a primary hearing care practitioner to a significant other at home: No Do you presently have visiting nurse or other home services: No Alcohol intake: never Patient Tobacco Use Status: Never used Tobacco e-Cigarette/Vaping Use: Never Used Current occupational status: retired Cognitive needs: No Hearing needs: No Vision needs: Yes Review of Systems Const All systems reviewed & are unremarkable except as noted in HPI and below Physical Exam Vital Signs: Last Vital Signs Temp 97.4 F 05/15/23 10:53 Pulse 105 H 05/15/23 10:53 BP 120/60 05/15/23 10:53 Pulse Ox 98 05/15/23 10:53 Oxygen Delivery Method Room Air 05/15/23 10:53 BMI result Body Mass Index 20.1 Const General: healthy appearing and in distress mild Extrem Right upper extremity: normal to inspection and shoulder/upper arm (Range of motion of the right shoulder is significantly decreased.) Details: tenderness and abnormal ROM Details: pain with active ROM and pain with passive ROM Assessment & Plan Assessment & Plan (1) Right shoulder pain: Code(s): M25.511 - Pain in right shoulder Plan: 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 I did give her a muscle relaxer to try to help regain some range of motion but an urgent referral to [facility] for evaluation and may be joint injection. She was given a sling for comfort and will use it intermittently for rest. She is aware she needs to continue gentle lqrxx-ww-pjmiax exercises Plan See plan Orders: Referrals Orthopedics Referral M25.511 - Pain in right shoulder Medications: New cyclobenzaprine 5 mg PO Q12H 10 tabs 0RF Coding Level of Care Code Est Pt Level 3 (96146) Diagnoses Right shoulder pain M25.511
== END 2023-05-15 12:22 | disposition home or self-care (01) ==
PROVIDERS: PCP Internal Medicine; Visit Provider Physician Assistant Medical
DX: M25.511 Pain in right shoulder (principal)
CPT/HCPCS: 99213

== ENCOUNTER 2023-05-20 08:29 | Day surgery (SDC) | payer MEDICARE, SELFPAY ==
[2023-05-13 15:56] VITALS: BMI 21.1
[2023-05-14 15:30] VITALS: BMI 20.9
[2023-05-20 13:28] LABS: Glucose, Whole Blood 161 mg/dL (60-115)
[2023-05-20] MEDS: Tetracaine HCl/PF 0.5% Oph Sol 4 ML DROPS 1 DROP EYE-LEFT (13:35)
[2023-05-20] MEDS: Tropicamide 1 % Ophth Sol 3 ML BTL 1 DROP EYE-LEFT ×3 (13:43→14:08)
[2023-05-20 13:44] VITALS: BP 124/64; PULSE 107; RESP 16; TEMP 37.2; O2SAT 95
--- NOTE | 2023-05-20 13:46 | HO.ANESPROP2 ---
HPI - Anesthesia Eval Consult details Narrative: Left eye cataract + IOL PMFSH Active Problems Active Problems: All Active Problems (Updated 05/15/23 @ 11:14 by ROSALIO Rob) Right shoulder pain (Acute) Irregular bowel habits (Acute) Postprandial abdominal bloating (Acute) Type 2 diabetes mellitus with hyperglycemia, without long-term current use of insulin (Acute) Diabetic neuropathy (Acute) Essential hypertension (Acute) Dyslipidemia (Acute) Osteopenia of multiple sites (Acute) Past Medical History Medical History Right shoulder pain Constipation Change in stool caliber Postprandial abdominal bloating Hx SBO History of cancer of left breast Osteopenia of multiple sites Diabetic neuropathy Small bowel obstruction Essential hypertension Dyslipidemia Type 2 diabetes mellitus with hyperglycemia, without long-term current use of insulin Family History Family History Father No problems noted. Mother No problems noted. Sister Diabetes Daughter No problems noted. Brother Colon cancer Family history of problems with anesthesia: No Surgical History Surgical History History of bowel resection History of section H/O mastectomy History of Problems with Anesthesia: No Social History Social History Household Members: Spouse and Other Household Members Other:: daughter Housing: House Are you a primary daycare teacher to a significant other at home: No Do you presently have visiting nurse or other home services: No Alcohol intake: never Patient Tobacco Use Status: Never used Tobacco e-Cigarette/Vaping Use: Never Used Use of substances other than those prescribed or required for medical reasons: No Have you been hit, kicked, punched, or otherwise hurt by someone within the past year? If so, by whom?: No Are you DNR?: No Advance Directives: No Advance Directives Information Provided: Yes Advance Directives on File: No Recently lost weight without trying: No Nutrition Risks: No Nutritional Risk Current occupational status: retired Cognitive needs: No Hearing needs: No Vision needs: Yes Meds Allergies Allergy/AdvReac Type Severity Reaction Status Date / Time Penicillins [PENICILLINS] Allergy Intermediate RASH Verified 05/20/23 13:36 Active Medications: Current Medications Cyclopentolate HCl (Cyclopentolate 1 % Ophth Carlee 2 Ml Drpbtl) 1 drop EYE-LEFT Q5M RIA Stop: 05/20/23 13:56 Lactated Ringer's (Lr) 500 mls @ 50 mls/hr IV .Q10H [facility] Stop: 05/20/23 18:59 Ketorolac Tromethamine (Ketorolac Tromethamine 0.5% Op 5 Ml Drops) 1 drop EYE-LEFT Q5M RIA Stop: 05/20/23 13:56 Moxifloxacin HCl (Moxifloxacin Hcl 0.5 % Oph Carlee 3 Ml Drpbtl) 1 drop EYE-LEFT POSTOP ONE Stop: 05/20/23 13:33 Phenylephrine HCl (Phenylephrine Hcl 2.5% Oph Carlee 2 Ml Bottle) 1 drop EYE-LEFT Q5M RIA Stop: 05/20/23 13:56 Povidone Iodine (Povidone Iodine 5 % Ophth Soln 30 Ml Bottle) 1 appl EYE-LEFT PREOP PRN PRN Reason: Pre-Op Surgical Implant Prophy Tetracaine HCl (Tetracaine Hcl/Pf 0.5% Oph Carlee 4 Ml Drops) 1 drop EYE-LEFT PREOP ONE Stop: 05/20/23 13:33 Last Admin: 05/20/23 13:35 Dose: 1 drop Triamcinolone Acetonide (Triamcinolone Acetonide 40 Mg/Ml Vial) 40 mg IM POSTOP ONE Stop: 05/20/23 13:33 Tropicamide (Tropicamide 1 % Ophth Carlee 3 Ml Btl) 1 drop EYE-LEFT Q5M RIA Stop: 05/20/23 13:56 Last Admin: 05/20/23 13:43 Dose: 1 drop Home Medications Medication Instructions Recorded Confirmed Last Taken Type lancets 30 gauge #100 ea 02/10/20 05/15/23 Unknown History cholecalciferol (vitamin D3) 50 50 mcg PO DAILY 12/06/20 05/15/23 Unknown History mcg (2,000 unit) capsule kaujshhpjbdg-fyptrnnk-zkfluq tablet 1 tab PO DAILY 12/06/20 05/15/23 Unknown History docusate sodium 100 mg capsule 100 mg PO DAILY 05/14/23 05/15/23 Unknown History Exam Height,Weight and Vital Signs: Height 4 ft 10 in Weight 45.359 kg Pertinent Lab Results Pertinent Lab Results: Laboratory Tests 05/20/23 13:24 POC Glucose 161 H Airway Mallampati Class: II TM Dist: >3cm Neck ROM: Full Denture: Upper and Lower Loose/Missing/Broken Teeth: Yes Heart: rrr+[id number] Lungs: cta b/l Assessment and Plan Assessment Anesthesia Assessment: Anesthesia Plan Discussed and Chart Reviewed Final Anesthetic Review Family History of Problems with Anesthesia: No History of Problems with Anesthesia: No NPO: Yes ASA Class: III Final Preanesthetic Review: No Changes in Pt Med Stat, Meds/Allgs Chart Reviewed, Consent Obtained/Reviewed and Anes Risks/Benef Reviewed Patient Risk: Intermediate Procedure Risk: Intermediate Assessment/Block/Sedation in SS: Assess/Block/Sedation-SS Anesthetic Plan Anesthetic Plan: MAC: Disposition: Standard PACU
[2023-05-20] MEDS: Ketorolac Tromethamine 0.5% Op 5 ML DROPS 1 DROP EYE-LEFT ×3 (13:47→14:09)
[2023-05-20] MEDS: Phenylephrine HCL 2.5% Oph SoL 2 ML BOTTLE 1 DROP EYE-LEFT ×3 (13:48→14:10)
[2023-05-20] MEDS: Lactated Ringers 500 ML 50 ML IV (14:11)
--- NOTE | 2023-05-20 14:56 | MHC.SHP ---
Pre-Procedural Eval Section A - 24 Hr Update-Section A only Date of Service: 05/20/23 The patient is an INPATIENT: No Changes since office visit: No Cold of Flu in the past 2 weeks, No New Medical Problems, No Changes in Medication and No Patient answered all questions The patient has been examined within 24 hours of the surgical procedure. The History & Physical has been completed within 30 days and I have reviewed it.: Yes Section B - Complete if H&P > 30 days Chief Complaint: Age-related nuclear cataract, left eye Allergies: Allergies Allergy/AdvReac Type Severity Reaction Status Date / Time Penicillins [PENICILLINS] Allergy Intermediate RASH Verified 05/20/23 13:36 Plan Diagnosis/Plan: Unchanged I have reviewed the history and physical and performed a pertinent physical examination on my patient. No changes have occurred unless specified. Time Spent With Patient Time: Total time managing care of this patient today ____ minutes.
--- NOTE | 2023-05-20 14:57 | HO.PNOPHT ---
Ophthalmology Procedure Procedure Date of Service: 05/20/23 Ophthalmology Viscoelastic: Healon Duet Dual Pack Pro Ophthalmology Lenses: Other (ma60 21) Procedure Notes: PREOPERATIVE DIAGNOSIS: Decreased visual acuity left eye secondary to cataract POSTOPERATIVE DIAGNOSIS: Same PROCEDURE: Left cataract extraction with intraocular lens insertion SURGEON: Jaren Prince M.D. ANESTHESIA: Topical/MAC ESTIMATED BLOOD LOSS: None COMPLICATIONS: None After obtaining informed consent, the patient was brought to the operation room suite and placed in the supine position. After adequate sedation per anesthesia, topical drops of Tetracaine were given to the left eye. The eye was then prepped and draped in the usual sterile fashion. The operating room microscope was then positioned over the operative eye and a lid speculum placed. A paracentesis was created. Viscoelastic was then instilled into the anterior chamber. A three plane incision was then created temporally, utilizing a 2.85 mm keratome. Capsulotomy forceps were then utilized to create a circular tear capsulotomy. Hydrodissection and hydrodelineation were carried out until adequate mobilization of the nucleus occurred. Phacoemulsification was then utilized to remove the dense central nucleus followed by removal of the cortical material utilizing the automated aspiration irrigation unit. Viscoat elastic was instilled into the posterior capsular bag followed by placement of a posterior chamber intraocular lens without difficulty. The residual Viscoat elastic was then removed utilizing the automated IA machine. The wound was check and found to be watertight. The patient tolerated the procedure well and the lid speculum was removed. Intracameral injection of Vigamox 0.1 mL followed by a subtenon injection of Kenalog-40 0.2 mL were administered. The patient will be seen in the a.m.
[2023-05-20 15:25] VITALS: BP 106/51; PULSE 97; RESP 11; TEMP 37.2; O2SAT 99
[2023-05-20 15:40] VITALS: BP 112/61; PULSE 64; RESP 14; TEMP 36.6; O2SAT 98
== END 2023-05-20 16:15 | disposition home or self-care (01) ==
PROVIDERS: PCP Internal Medicine; Visit Provider Ophthalmology
PROC: (CPT 66985; principal; 2023-05-20 12:30)
DX: H25.12 Age-related nuclear cataract, left eye (principal); H52.4 Presbyopia; H40.213 Acute angle-closure glaucoma, bilateral; H43.21 Crystalline deposits in vitreous body, right eye; Z96.1 Presence of intraocular lens; I10 Essential (primary) hypertension; E78.00 Pure hypercholesterolemia, unspecified; E11.9 Type 2 diabetes mellitus without complications; C50.912 Malignant neoplasm of unspecified site of left female breast; Z79.811 Long term (current) use of aromatase inhibitors; Z79.84 Long term (current) use of oral hypoglycemic drugs; Z79.899 Other long term (current) drug therapy; Z88.0 Allergy status to penicillin
CPT/HCPCS: 66984; 82947; J2250; J3010; J3301; V2630

== ENCOUNTER 2023-05-22 15:32 | Outpatient (REF) | payer MEDICARE, SELFPAY | END 2023-05-22 15:33 | disposition home or self-care (01) | LOC: HO.HOSX 15:32 | PROVIDERS: Visit Provider Orthopaedic Surgery | DX: Z13.89 Encounter for screening for other disorder (principal) ==

== ENCOUNTER 2023-05-23 13:45 | Outpatient (AMB) | payer MEDICARE, SELFPAY ==
--- NOTE | 2023-05-23 13:53 | MHC.OFFVIS ---
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 Patient states her pain has been going on for about a month and is a 2 on the 1-10 pain scale. She states she was using aleve for pain. The patient states that her pain has improved somewhat over the last week. She also reports increase in her range of motion when compared to several weeks ago. She has been stretching on her own. Allergies Penicillins [PENICILLINS] Allergy (Intermediate, Verified 05/23/23 14:15) RASH Medication List - Last Reconciled 05/24/23 by Cedric Kim MD cholecalciferol (vitamin D3) 50 mcg PO DAILY cyclobenzaprine 5 mg PO Q12H docusate sodium 100 mg PO DAILY empagliflozin (Jardiance) 10 mg PO QAM lancets As directed lisinopril 20 mg PO DAILY metformin 1,000 mg PO BID ltaqzvqcvruc-opexnuhg-tpbfmt 1 tab PO DAILY rosuvastatin 10 mg PO Q2D 90 days sitagliptin phosphate (Januvia) 100 mg PO DAILY PFSH Medical History Right shoulder pain Constipation Change in stool caliber Postprandial abdominal bloating Hx SBO History of cancer of left breast Osteopenia of multiple sites Diabetic neuropathy Small bowel obstruction Essential hypertension Dyslipidemia Type 2 diabetes mellitus with hyperglycemia, without long-term current use of insulin Surgical History History of bowel resection History of section H/O mastectomy Family History Father No problems noted. Mother No problems noted. Sister Diabetes Daughter No problems noted. Brother Colon cancer Social History (Updated 05/23/23 @ 14:16 by Nichole Gale CMA) Household Members: Spouse and Other Household Members Other:: daughter Housing: House Are you a primary career services coordinator to a significant other at home: No Do you presently have visiting nurse or other home services: No Alcohol intake: never Patient Tobacco Use Status: Never used Tobacco e-Cigarette/Vaping Use: Never Used Current occupational status: retired Current occupation: Right hand dominate Cognitive needs: No Hearing needs: No Vision needs: Yes Physical Exam Vital Signs: BMI result Body Mass Index 1.3 Const Other: Well-nourished well-developed very friendly female awake alert and oriented x3 in no acute distress Extrem Other: Bilateral upper extremity examination shows good capillary refill, no skin lesions noted, normal sensation light touch Right shoulder examination shows decreased active and passive range of motion when compared to her left shoulder, mild pain with range of motion, 4+ out of 5 strength with supraspinatus testing, positive impingement signs, tenderness over her acromioclavicular joint, no instability Results Reviewed Results Reviewed: X-rays of the patient's right shoulder show severe acromioclavicular joint narrowing, a type 2 acromion, a large calcium deposit within the supraspinatus tendon Assessment & Plan Assessment & Plan (1) Right shoulder pain: Code(s): M25.511 - Pain in right shoulder Plan Ms. Xiao presents with right shoulder pain and stiffness due to impingement syndrome, acromioclavicular joint arthritis, calcific tendinitis and early adhesive capsulitis. I had a lengthy discussion with the patient regarding the treatment options. At this point the patient's symptoms are improving with home stretching exercises. The patient wishes to hold off on a cortisone injection. The do's and don'ts of lifting were discussed at length with the patient. She will contact me prior to her follow-up appointment in 6-8 weeks should her symptoms worsen in any way. Feel free to call me at any time should questions regarding her orthopedic management arise. I spent 22 minutes in reviewing the patient's records and imaging studies, seeing the patient and documenting in the medical record. Orders: Orders XR shoulder RT min 2V 05/23/23 M25.511 - Pain in right shoulder Coding Level of Care Code New Pt Level 2 (19868) Diagnoses Right shoulder pain M25.511
== END 2023-05-23 14:35 | disposition home or self-care (01) ==
PROVIDERS: PCP Internal Medicine; Visit Provider Orthopaedic Surgery
DX: M25.511 Pain in right shoulder (principal)
CPT/HCPCS: 99202

== ENCOUNTER 2023-05-23 15:32 | Outpatient (REF) | payer MEDICARE, SELFPAY ==
--- NOTE | ~2023-05-23 | XR_ITS ---
EXAMINATION: XR SHOULDER, RIGHT CLINICAL INFORMATION: Pain in right shoulder. COMPARISON: None available. TECHNIQUE: Two views of the right shoulder. FINDINGS: Abundant amorphous calcifications in the soft tissues along the superolateral aspect of the humeral head suggestive of rotator cuff pathology. Mild degenerative changes in the acromioclavicular and glenohumeral joints. The bones are diffusely demineralized. XR/XR shoulder RT min 2V IMPRESSION: 1. Abundant amorphous calcifications in the soft tissues along the superolateral aspect of the humeral head suggestive of calcific tendinitis. 2. Mild degenerative changes in the acromioclavicular and glenohumeral joints.
== END 2023-05-23 15:33 | disposition home or self-care (01) ==
LOC: HO.HOSX 15:32
PROVIDERS: Visit Provider Orthopaedic Surgery
DX: M25.511 Pain in right shoulder (principal); Z79.899 Other long term (current) drug therapy
CPT/HCPCS: 73030; 99202

== ENCOUNTER 2023-06-05 08:45 | Outpatient (REF) | payer MEDICARE, SELFPAY ==
[2023-06-05 11:21] LABS: Alanine Aminotransferase 21 U/L (0-31); Anion Gap 12 (12-20); Aspartate Amino Transferase 21 U/L (5-31); Blood Urea Nitrogen 17 mg/dL (9-16); Calcium 9.6 mg/dL (8.4-10.2); Carbon Dioxide 27 mmol/L (22-29); Chloride 103 mmol/L (96-108); Cholesterol 144 mg/dL (<200); Estimated Glomerular Filt Rate > 60; Glucose Fasting 173 mg/dL (60-99); HDL Cholesterol 63 mg/dL (>40); LDL Cholesterol Calculated 50 mg/dL (<100); Potassium 4.4 mmol/L (3.3-5.1); Sodium 138 mmol/L (135-145); Triglycerides 156 mg/dL (<150)
[2023-06-05 11:24] LABS: Estimated Average Glucose 189 mg/dL; Hemoglobin A1c % 8.2 % (<6.0)
== END 2023-06-05 08:46 | disposition home or self-care (01) ==
LOC: HO.HMGCLDS 08:45
PROVIDERS: PCP Internal Medicine; Visit Provider Internal Medicine
DX: E11.65 Type 2 diabetes mellitus with hyperglycemia (principal); I10 Essential (primary) hypertension; E78.5 Hyperlipidemia, unspecified
CPT/HCPCS: 36415; 80048; 80061; 83036; 84450; 84460

== ENCOUNTER 2023-06-12 11:31 | Outpatient (AMB) | payer MEDICARE, SELFPAY ==
--- NOTE | 2023-06-12 12:02 | A.OFFPC_ITS ---
<Statement entered by Wendy Espinosa MD - 08/01/24 01:52> This note has been administratively?closed. Vital Signs 06/12/23 12:25 Height 4 ft 10 in Weight 95 lb BMI 19.9 BP 100/60 Blood Pressure Location Rt brachial Position Sitting Pulse 96 Pulse Source Pulse Oximeter Pulse Oximetry (%) 98 Oxygen Delivery Method Room Air Intake Visit Reasons: 3 Month F/U Diabetes Intake Note: Pt is here today for her 3 months f/u DM Allergies Penicillins [PENICILLINS] Allergy (Intermediate, Verified 06/22/24 10:58) RASH Medication List - Last Reconciled 06/12/23 by Wendy Espinosa MD cholecalciferol (vitamin D3) 50 mcg PO DAILY empagliflozin (Jardiance) 10 mg PO QAM lancets As directed lisinopril 20 mg PO DAILY metformin 1,000 mg PO BID chkyhspatsjk-dtvuelqf-brsvkh 1 tab PO DAILY rosuvastatin 10 mg PO Q2D 90 days sitagliptin phosphate (Januvia) 100 mg PO DAILY Tobacco use date assessed: 06/12/23 Fall risk assessment: No Falls in past year Last assessed Fall Risk: 06/12/23 Dental Screening Dental Screen Date: 06/12/23 Did you have a dental visit in the last 12 months?: Yes Did you have a dental problem in the last 6 months where you did not have access to dental care?: No Was dental information given to patient?: Patient has dentist [facility] Medical History Mammogram declined History of cancer of left breast Hx SBO Osteopenia of multiple sites Diabetic neuropathy Essential hypertension Dyslipidemia Type 2 diabetes mellitus with hyperglycemia, without long-term current use of insulin Surgical History History of bowel resection History of section H/O mastectomy Family History Father No problems noted. Mother No problems noted. Sister Diabetes Daughter No problems noted. Brother Colon cancer Social History Household Members: Spouse and Other Household Members Other:: daughter Housing: House Are you a primary manager intensive care to a significant other at home: No Do you presently have visiting nurse or other home services: No Alcohol intake: never Patient Tobacco Use Status: Never used Tobacco e-Cigarette/Vaping Use: Never Used Current occupational status: retired Current occupation: Right hand dominate Cognitive needs: No Hearing needs: No Vision needs: Yes Questionnaire Thrive Questionnaire Date Thrive assessed: 04/25/23 VIOLETA-7 AMB Questionnaire VIOLETA-7 Date VIOLETA - 7 assessed: 05/18/22 Source: Developed by Drs. Rocky Kelly, Nazanin Gorman, Kanu Tang and colleagues, with an educational vanita from [employer]. Physical exam (Primary Care) Vital Signs: Last Vital Signs Pulse 96 06/12/23 12:25 BP 100/60 06/12/23 12:25 Pulse Ox 98 06/12/23 12:25 Oxygen Delivery Method Room Air 06/12/23 12:25 BMI result Body Mass Index 19.9 Tobacco/Smoking Status: Tobacco use Status Tobacco use date assessed 06/12/23 06/12/23 12:03 Patient Tobacco Use Status Never used Tobacco 06/12/23 12:03 e-Cigarette/Vaping Use Never Used 06/12/23 12:03 Thrive Assessment: Date of Thrive Assessment Date Thrive assessed 04/25/23 06/12/23 12:03 Results Reviewed Results Reviewed: Name: Shaylee Xiao Age/Sex: 72/F : 1950 Unit#: [id number] Attend Dr: Wendy Espinosa MD Re06/05/23 Status: DEP [facility] Disch: SPEC : [id number] MORENO: 06/05/23 STATUS: COMP REQ : [id number] RECD: 06/05/23-[address]: Wendy Espinosa MD COMP: 06/05/23 ENTERED: 06/05/23-[address]: ORDERED: Met Prof Fast, AST, ALT, Lipid Panel Test Result Flag Reference Sodium 138 135-145 mmol/L Potassium 4.4 3.3-5.1 mmol/L CL 103 96-108 mmol/L CO2 27 22-29 mmol/L Gap 12 12-20 BUN 17 H 9-16 mg/dL Creat 0.84 0.5-1.4 mg/dL EGFR > 60 NOTE: For -[place] individuals, multiply the result by 1.210. Chronic Kidney Disease: Estimated GFR < 60 mL/min/1.73m2 Severe Kidney Disease: Estimated GFR < 15 mL/min/1.73m2 FBS 173 H 60-99 mg/dL A fasting glucose of 126 mg/dl or greater on more than one occasion is considered diagnostic of diabetes. CA 9.6 8.4-10.2 mg/dL AST (GOT) 21 5-31 U/L ALT (GPT) 21 0-31 U/L Triglyceride 156 H <150 mg/dL Desirable Triglyceride: less than 150 mg/dL Borderline High Triglyceride 150-199 mg/dL High Triglyceride: 200-499 mg/dL Very High Triglyceride: greater than or equal to 5OO mg/dL Cholesterol 144 <200 mg/dL Desirable Cholesterol: less than 200 mg/dL Borderline High Cholesterol: 200-239 mg/dL High Cholesterol: greater than 239 mg/dL LDL Calculated 50 <100 mg/dL Desirable LDL: less than 100 mg/dL Near Optimal/Above Optimal LDL: 110-129 mg/dL Borderline High LDL: 130-159 mg/dL High LDL: 160-189 mg/dL Very High LDL: greater than or equal to 190 mg/dL HDL 63 >40 mg/dL Desirable HDL: greater than 40 mg/dL Note: This HDL assay may give artificially low results in patients with liver disease. Laboratory Tests 06/05/23 08:54 Estimat Average Glucose 189 Hemoglobin A1c % 8.2 H Coding Level of Care Code Admin Sign Off/No Billing Diagnoses Type 2 diabetes mellitus with hyperglycemia, without long-term current use of insulin E11.65 Dyslipidemia E78.5 Essential hypertension I10 Osteopenia of multiple sites M85.89
[2023-06-12 12:25] VITALS: BP 100/60; PULSE 96; O2SAT 98; BMI 19.9
== END 2023-06-12 13:05 | disposition home or self-care (01) ==
PROVIDERS: PCP Internal Medicine; Visit Provider Internal Medicine
DX: E11.65 Type 2 diabetes mellitus with hyperglycemia (principal); E78.5 Hyperlipidemia, unspecified; I10 Essential (primary) hypertension; M85.89 Other specified disorders of bone density and structure, multiple sites
CPT/HCPCS: 99499

== ENCOUNTER 2023-07-08 14:10 | Outpatient (AMB) | payer MEDICARE, SELFPAY ==
[2023-07-08 14:17] VITALS: BMI 19.9
--- NOTE | 2023-07-08 14:17 | MHC.PC.OV ---
Vital Signs 07/08/23 14:17 Height 4 ft 10 in Weight 95 lb BMI 19.9 Intake Visit Reasons: medication alternative Intake Note: medication alternavtive Allergies Penicillins [PENICILLINS] Allergy (Intermediate, Verified 07/08/23 14:27) RASH Medication List - Last Reconciled 07/08/23 by Wendy Espinosa MD cholecalciferol (vitamin D3) 50 mcg PO DAILY empagliflozin 25 mg PO QAM lancets As directed lisinopril 20 mg PO DAILY metformin 1,000 mg PO BID owvqxikgerhv-iqnrlubl-oweyxg 1 tab PO DAILY rosuvastatin 10 mg PO Q2D 90 days sitagliptin phosphate (Januvia) 100 mg PO DAILY Tobacco use date assessed: 07/08/23 Fall risk assessment: No Falls in past year Last assessed Fall Risk: 07/08/23 Dental Screening Dental Screen Date: 07/08/23 Did you have a dental visit in the last 12 months?: Yes Did you have a dental problem in the last 6 months where you did not have access to dental care?: No Was dental information given to patient?: Patient has dentist HPI medication alternative HPI Details Telehealth visit made with 72-year-old female here today for follow-up on her diabetes mellitus. Patient currently is taking empagliflozin 25 mg in the morning, Januvia 100 mg daily and metformin 1000 mg twice a day. Her hemoglobin A1c went up from 7% to 8.2%. Patient states however that she has been eating a lot of sweets, indulging in chocolates, banana fritters, and eats rice every day. She also states that she has been walking but not on a regular basis during the winter time. Complains that Januvia and empagliflozin prescription is expensive, would like to try something else. However patient does not want to try any injectables. [facility] Medical History Right shoulder pain Constipation Change in stool caliber Postprandial abdominal bloating Hx SBO History of cancer of left breast Osteopenia of multiple sites Diabetic neuropathy Small bowel obstruction Essential hypertension Dyslipidemia Type 2 diabetes mellitus with hyperglycemia, without long-term current use of insulin Surgical History History of bowel resection History of section H/O mastectomy Family History Father No problems noted. Mother No problems noted. Sister Diabetes Daughter No problems noted. Brother Colon cancer Social History Household Members: Spouse and Other Household Members Other:: daughter Housing: House Are you a primary acute care certified nursing assistant to a significant other at home: No Do you presently have visiting nurse or other home services: No Alcohol intake: never Patient Tobacco Use Status: Never used Tobacco e-Cigarette/Vaping Use: Never Used Current occupational status: retired Current occupation: Right hand dominate Cognitive needs: No Hearing needs: No Vision needs: Yes Questionnaire Thrive Questionnaire Date Thrive assessed: 04/25/23 VIOLETA-7 AMB Questionnaire VIOLETA-7 Date VIOLETA - 7 assessed: 05/18/22 Source: Developed by Drs. Rocky Kelly, Nazanin Gorman, Kanu Tang and colleagues, with an educational vanita from [employer]. Review of Systems Const Reports no additional complaints Eyes Details: Currently sees Dr. Prince for her routine eye exam and retinopathy screening ENT Reports no additional complaints Card Denies chest pain, Denies rapid heart rate, Denies irregular heart rhythm, Denies leg edema, Denies lightheadedness and Denies dyspnea Resp Denies cough and Denies dyspnea GI Denies abdominal pain, Denies melena, Denies bloating, Denies hematochezia, Reports constipation and Denies heartburn Denies difficulty voiding, Reports nocturia, Denies genital pruritis and Denies urinary incontinence Musc Reports no additional complaints Neuro Reports no additional complaints Psych Reports no additional complaints Endo Reports no additional complaints Ascencion/Lymph Reports no additional complaints Aller/Immun Reports no additional complaints Physical exam (Primary Care) BMI result Body Mass Index 19.9 Tobacco/Smoking Status: Tobacco use Status Tobacco use date assessed 07/08/23 07/08/23 14:20 Patient Tobacco Use Status Never used Tobacco 07/08/23 14:18 e-Cigarette/Vaping Use Never Used 07/08/23 14:18 Thrive Assessment: Date of Thrive Assessment Date Thrive assessed 04/25/23 07/08/23 14:18 Telehealth Telehealth Telehealth Platform: Other (please specify) Location of provider rendering services: practice address Location of patient: address on file Patient Identification confirmed using: Name, : Yes Telehealth method: video Patient verbally consented to treatment: Yes Patient verbally consented to billing insurance company: Yes Patient informed of any privacy concerns related to visit: Yes Minutes spent on Phone/Video with Pt.: 15 Assessment and Plan Assessment & Plan (1) Type 2 diabetes mellitus with hyperglycemia, without long-term current use of insulin: Code(s): E11.65 - Type 2 diabetes mellitus with hyperglycemia Plan: Reinforced importance of following recommended diet, will continue on current dose of metformin, Jardiance and Januvia, does not want to switch to insulin or GLP 1 agonist. Continue doing regular exercise at least 3 to 4 times a week, will repeat another hemoglobin A1c, electrolytes renal function in 3 months. (2) Diabetic neuropathy: Code(s): E11.40 - Type 2 diabetes mellitus with diabetic neuropathy, unspecified Coding Level of Care Code Tele Est Pt Level 4 (15628) Diagnoses Type 2 diabetes mellitus with hyperglycemia, without long-term current use of insulin E11.65 Diabetic neuropathy E11.40
== END 2023-07-08 16:14 | disposition home or self-care (01) ==
LOC: HO.HMGC 14:10
PROVIDERS: PCP Internal Medicine; Visit Provider Internal Medicine
DX: E11.65 Type 2 diabetes mellitus with hyperglycemia (principal); E11.40 Type 2 diabetes mellitus with diabetic neuropathy, unspecified
CPT/HCPCS: 99214

== ENCOUNTER 2023-09-24 08:23 | Outpatient (REF) | payer MEDICARE, SELFPAY ==
[2023-09-24 10:39] LABS: Alanine Aminotransferase 19 U/L (0-31); Anion Gap 12 (12-20); Aspartate Amino Transferase 21 U/L (5-31); Blood Urea Nitrogen 17 mg/dL (9-16); Calcium 9.4 mg/dL (8.4-10.2); Carbon Dioxide 26 mmol/L (22-29); Chloride 106 mmol/L (96-108); Cholesterol 155 mg/dL (<200); Estimated Glomerular Filt Rate > 60; Glucose Fasting 178 mg/dL (60-99); HDL Cholesterol 56 mg/dL (>40); LDL Cholesterol Calculated 53 mg/dL (<100); Potassium 4.2 mmol/L (3.3-5.1); Sodium 140 mmol/L (135-145); Triglycerides 231 mg/dL (<150)
[2023-09-24 10:45] LABS: Vitamin D 25-OH Total 100.5 ng/mL (>30)
[2023-09-24 11:06] LABS: Estimated Average Glucose 180 mg/dL; Hemoglobin A1c % 7.9 % (<6.0)
== END 2023-09-24 08:24 | disposition home or self-care (01) ==
LOC: HO.HMGCLDS 08:23
PROVIDERS: PCP Internal Medicine; Visit Provider Internal Medicine
DX: E11.65 Type 2 diabetes mellitus with hyperglycemia (principal); E11.40 Type 2 diabetes mellitus with diabetic neuropathy, unspecified; I10 Essential (primary) hypertension; E78.5 Hyperlipidemia, unspecified; M85.89 Other specified disorders of bone density and structure, multiple sites; Z78.0 Asymptomatic menopausal state
CPT/HCPCS: 36415; 80048; 80061; 82306; 83036; 84450; 84460

== ENCOUNTER 2023-10-01 09:26 | Outpatient (AMB) | payer MEDICARE, SELFPAY ==
[2023-10-01 09:32] VITALS: BP 96/60; PULSE 97; O2SAT 98; BMI 19.2
--- NOTE | 2023-10-01 09:32 | A.OFFPC_ITS ---
Vital Signs 10/01/23 09:32 Height 4 ft 10 in Weight 92 lb BMI 19.2 BP 96/60 Blood Pressure Location Rt brachial Position Sitting Pulse 97 Pulse Source Pulse Oximeter Pulse Oximetry (%) 98 Oxygen Delivery Method Room Air Intake Visit Reasons: DM, Lipids, HTN after labs done Intake Note: Pt is here today for her f/u DM, lipids, and HTN Allergies Penicillins [PENICILLINS] Allergy (Intermediate, Verified 10/01/23 10:18) RASH Medication List - Last Reconciled 10/01/23 by Wendy Espinosa MD cholecalciferol (vitamin D3) 50 mcg PO DAILY empagliflozin 25 mg PO QAM lancets As directed lisinopril 20 mg PO DAILY metformin 1,000 mg PO BID jdznandczwgc-npgcmmoo-yoypbb 1 tab PO DAILY rosuvastatin 10 mg PO Q2D 90 days Tobacco use date assessed: 10/01/23 Fall risk assessment: No Falls in past year Last assessed Fall Risk: 10/01/23 Dental Screening Dental Screen Date: 07/08/23 Did you have a dental visit in the last 12 months?: Yes Did you have a dental problem in the last 6 months where you did not have access to dental care?: Yes Was dental information given to patient?: Patient has dentist HPI DM, Lipids, HTN after labs done HPI Details 73-year-old lady with diabetes mellitus, currently on empagliflozin 25 mg in the morning and metformin a 1000 mg twice a day, has hyperlipidemia currently on rosuvastatin 10 mg every other day and hypertension currently stable controlled on lisinopril 20 mg daily, here today for follow-up. Recent fasting labs showed some improvement in her diabetes control with hemoglobin A1c now at 7.9%. Has been compliant with taking medication, but s tates that she has been eating a lot of fruit lately which consists of melena, watermelon banana and makes a smoothie drink every day consisting of the same fruits. She has been staying active , and has lost some weight since last visit. [facility] Medical History Right shoulder pain Constipation Change in stool caliber Postprandial abdominal bloating Hx SBO History of cancer of left breast Osteopenia of multiple sites Diabetic neuropathy Small bowel obstruction Essential hypertension Dyslipidemia Type 2 diabetes mellitus with hyperglycemia, without long-term current use of insulin Surgical History History of bowel resection History of section H/O mastectomy Family History Father No problems noted. Mother No problems noted. Sister Diabetes Daughter No problems noted. Brother Colon cancer Social History Household Members: Spouse and Other Household Members Other:: daughter Housing: House Are you a primary career consultant to a significant other at home: No Do you presently have visiting nurse or other home services: No Alcohol intake: never Patient Tobacco Use Status: Never used Tobacco e-Cigarette/Vaping Use: Never Used Current occupational status: retired Current occupation: Right hand dominate Cognitive needs: No Hearing needs: No Vision needs: Yes Questionnaire PHQ-9 Over the last 2 weeks, how often have you been bothered by any of the following problems? 1. Little interest or pleasure in doing things: not at all 2. Feeling down, depressed, or hopeless: not at all 3. Trouble falling or staying asleep, or sleeping too much: not at all 4. Feeling tired or having little energy: not at all 5. Poor appetite or overeating: not at all 6. Feeling bad about yourself - or that you are a failure or have let yourself or your family down: not at all 7. Trouble concentrating on things, such as reading the newspaper or watching television: not at all 8. Moving or speaking so slowly that other people could have noticed. Or the opposite - being so fidgety or restless that you have been moving around a lot more than usual: not at all 9. Thoughts that you would be better off or of hurting yourself in some way: not at all Total score: 0 Depression Screening Interpretation: Negative Depression Screening Done: Yes 85699 - PHQ-9 Billing: Yes Source: Developed by Drs. Rocky Kelly, Nazanin Gorman, Kanu Tang and colleagues, with an educational vanita from [employer]. Thrive Questionnaire Date Thrive assessed: 04/25/23 I am a: Patient What is your living situation today?: I have a steady place to live Within the past 12 months, did the food you bought not last and you didn't have the money to get more?: Never true Within the past 12 months, did you worry whether your food would run out before you got money to buy more?: Never true Do you have trouble paying for medicines?: Yes Do you have trouble getting transportation to medical appointments?: No Do you have trouble paying your heating and electricity bill?: No Do you have trouble taking care of your child, family member or friend?: No Do you have trouble with day-to-day activities such as bathing, preparing meals, shopping, managing finances, etc.?: No Are you currently unemployed and looking for a job?: No Are you interested in more education?: No Please select the resources that you would like help with: Paying for medicine Currently or been in a relationship where the following occur: I choose not to answer THRIVE Score: 0 AUDIT C Alcohol Use Questionnaire (AUDIT-C) 1. How often do you have a drink containing alcohol?: Never Total Score: 0 VIOLETA-7 AMB Questionnaire VIOLETA-7 Date VIOLETA - 7 assessed: 05/18/22 Feeling nervous, anxious, or on edge: 0 = Not at all Not being able to stop or control worryin = Not at all Worrying too much about different things: 0 = Not at all Trouble relaxin = Not at all Being so restless that it is hard to sit still: 0 = Not at all Becoming easily annoyed or irritable: 0 = Not at all Feeling afraid as if something awful might happen: 0 = Not at all Total VIOLETA-7 score (0-4 normal; 5-9 mild; 10-14 moderate; 15-21 severe): 0 Source: Developed by Drs. Rocky Kelly, Nazanin Gorman, Kanu Tang and colleagues, with an educational vanita from [employer]. VIOLETA-7 Assessment Billing VIOLETA-7 Assessment Tool: VIOLETA-7 Assessment 76388 Review of Systems Const Reports no additional complaints Eyes Details: Currently sees Dr. Prince for her routine eye exam and retinopathy screening ENT Reports no additional complaints Card Denies chest pain, Denies rapid heart rate, Denies irregular heart rhythm, Denies leg edema, Denies lightheadedness and Denies dyspnea Resp Denies cough and Denies dyspnea GI Denies abdominal pain, Denies melena, Denies bloating, Denies hematochezia, Reports constipation and Denies heartburn Denies difficulty voiding, Reports nocturia, Denies genital pruritis and Denies urinary incontinence Musc Reports no additional complaints Skin/Breast Denies breast pain, Denies breast mass and Denies rash Neuro Reports no additional complaints Psych Reports no additional complaints Endo Reports no additional complaints Ascencion/Lymph Reports no additional complaints Aller/Immun Reports no additional complaints Physical exam (Primary Care) Vital Signs: Last Vital Signs Pulse 97 10/01/23 09:32 BP 96/60 10/01/23 09:32 Pulse Ox 98 10/01/23 09:32 Oxygen Delivery Method Room Air 10/01/23 09:32 BMI result Body Mass Index 19.2 Tobacco/Smoking Status: Tobacco use Status Tobacco use date assessed 10/01/23 10/01/23 09:35 Patient Tobacco Use Status Never used Tobacco 10/01/23 09:35 e-Cigarette/Vaping Use Never Used 10/01/23 09:35 PHQ-9: PHQ-9 Score PHQ-9: Total score 0 10/01/23 10:22 Depression Screening Interpretation: Negative Thrive Assessment: Date of Thrive Assessment Date Thrive assessed 04/25/23 10/01/23 09:35 Currently or been in a relationship where the following occur: I choose not to answer Const General: cooperative, comfortable and no acute distress Nutritional Appearance: average body habitus Orientation/consciousness: patient oriented x3 HENMT Ears: TM's normal bilaterally and EAC's normal General nose exam: Normal external nose present and No nasal discharge present Face and sinus: Yes face symmetric Mouth: Normal oral and palatal mucosa present and moist mucous membranes Eyes General: appearance normal, both eyes and all related structures Neck Neck: Yes full ROM, Yes no lymphadenopathy and Yes supple Thyroid: Thyroid normal Chest Other: Left mastectomy scar Resp Effort & Inspection: normal respiratory effort and able to speak in complete sentences Auscultation: clear to auscultation bilaterally Cardio Other: S1-S2 present regular rate and rhythm GI Palpation (GI): Soft to palpation, nontender and no guarding Auscultation: normal bowel sounds General: Yes no CVA tenderness Back/Spine/Pelvis Back: no CVA tenderness and No back tenderness Skin General skin exam: no rashes or lesions noted Neuro General: patient oriented x3, gait normal, tone normal, moves all extremities, Normal light touch and pain sensation, no focal motor deficits, CN's II-XI intact bilaterally and normal sensation to monofilament Extrem General: Yes full ROM, Yes no joint enlargement, Yes no clubbing, cyanosis or edema, Yes no calf tenderness and Yes normal gait Psych Appearance: grossly normal and well kempt Mental Status: mental status grossly normal Speech and movement: Normal speech and movement present Affect: normal affect Attitude: cooperative Thought process: Normal thought process present Results Reviewed Results Reviewed: Laboratory Tests 03/13/23 09/24/23 09:05 08:41 Estimat Average Glucose 180 Hemoglobin A1c % 7.9 H Urine Creatinine 64.15 Urine Microalbumin 23.0 Microalb/Creat Ratio 35.8 H ronn: Shaylee Xiao Age/Sex: 73/F : 1950 Unit#: [id number] Attend Dr: Wendy Espinosa MD Re09/24/23 Status: DEP REF Location: [facility] Disch: SPEC : [id number] MORENO: 09/24/23 STATUS: COMP REQ : [id number] RECD: 09/24/[address]: Wendy Espinosa MD COMP: 09/24/23 ENTERED: 09/24/[address] [facility] [address]: ORDERED: Met Prof Fast, AST, ALT, Lipid Panel, Vitamin D 25-OH Test Result Flag Reference Sodium 140 135-145 mmol/L Potassium 4.2 3.3-5.1 mmol/L CL 106 96-108 mmol/L CO2 26 22-29 mmol/L Gap 12 12-20 BUN 17 H 9-16 mg/dL Creat 0.80 0.5-1.4 mg/dL EGFR > 60 NOTE: For -British individuals, multiply the result by 1.210. Chronic Kidney Disease: Estimated GFR < 60 mL/min/1.73m2 Severe Kidney Disease: Estimated GFR < 15 mL/min/1.73m2 FBS 178 H 60-99 mg/dL A fasting glucose of 126 mg/dl or greater on more than one occasion is considered diagnostic of diabetes. CA 9.4 8.4-10.2 mg/dL AST (GOT) 21 5-31 U/L ALT (GPT) 19 0-31 U/L Triglyceride 231 H <150 mg/dL Desirable Triglyceride: less than 150 mg/dL Borderline High Triglyceride 150-199 mg/dL High Triglyceride: 200-499 mg/dL Very High Triglyceride: greater than or equal to 5OO mg/dL Cholesterol 155 <200 mg/dL Desirable Cholesterol: less than 200 mg/dL Borderline High Cholesterol: 200-239 mg/dL High Cholesterol: greater than 239 mg/dL LDL Calculated 53 <100 mg/dL Desirable LDL: less than 100 mg/dL Near Optimal/Above Optimal LDL: 110-129 mg/dL Borderline High LDL: 130-159 mg/dL High LDL: 160-189 mg/dL Very High LDL: greater than or equal to 190 mg/dL HDL 56 >40 mg/dL Desirable HDL: greater than 40 mg/dL Note: This HDL assay may give artificially low results in patients with liver disease. Vit D 25-OH Tot 100.5 >30 ng/mL Health Based Reference Values* < 20 ng/mL Deficient 20-30 ng/mL Insufficient > 30 ng/mL Sufficient Assessment and Plan Assessment & Plan (1) Type 2 diabetes mellitus with hyperglycemia, without long-term current use of insulin: Code(s): E11.65 - Type 2 diabetes mellitus with hyperglycemia Plan: Recent lab results reviewed with patient, with sugar and hemoglobin A1c improving but not at goal. c check fasting blood sugar twice a day before meals, maintain log and bring to next appointment for review. Continue metformin and Jardiance at the same dose, will add again glipizide 5 mg to take 1 tablet twice a day with meals. Reinforced diabetic diet and regular exercise with patient. Referred to aviation support equipment repairer for guidance with regards to diet Counseled regarding importance of yearly diabetes retinopathy screening, sees Dr. Prince, currently up-to-date with her diabetes retinopathy screening.. Patient advised to inspect feet daily, for any signs of injury, callus or infection. Compliance with diet and regular exercise again stressed. Blood pressure goal is less than 130/80, goal LDL is less than 100 and goal hemoglobin A1c is less than 7% follow-up appointment made in-3--months, after fasting labs done. (2) Dyslipidemia: Code(s): E78.5 - Hyperlipidemia, unspecified Plan: Reviewed recent fasting lipid profile with patient with levels . Continue rosuvastatin 10 mg 1 tablet every other day , in addition to adherence to low- cholesterol diet and regular exercise, at least 30 minutes 3 to 4 times a week. Advised patient to make healthy food choices, eat more fruits, vegetables, whole grains, wild caught fish and low-fat dairy. Limit amount of meat and fried or fatty food products, as well as processed foods and fast foods. Follow-up scheduled with repeat fasting lipid panel in 3 months. (3) Essential hypertension: Code(s): I10 - Essential (primary) hypertension Plan: Blood pressure at goal of less than 130/80. Continue with current medication. Reinforced importance of following a low sodium diet, getting regular exercise, and lowering stress levels. Orders: Orders Hemoglobin A1c 12/03/23 E11.65 - Type 2 diabetes mellitus with hyperglycemia, E78.5 - Hyperlipidemia, unspecified, I10 - Essential (primary) hypertension Lipid Panel 12/03/23 E11.65 - Type 2 diabetes mellitus with hyperglycemia, E78.5 - Hyperlipidemia, unspecified, I10 - Essential (primary) hypertension Alanine Aminotransferase 12/03/23 E11.65 - Type 2 diabetes mellitus with hyperglycemia, E78.5 - Hyperlipidemia, unspecified, I10 - Essential (primary) hypertension Aspartate Amino Transferase 12/03/23 E11.65 - Type 2 diabetes mellitus with hyperglycemia, E78.5 - Hyperlipidemia, unspecified, I10 - Essential (primary) hypertension Basic Metabolic Panel Fasting 12/03/23 E11.65 - Type 2 diabetes mellitus with hyperglycemia, E78.5 - Hyperlipidemia, unspecified, I10 - Essential (primary) hypertension Medications: New blood sugar diagnostic ([employer] Ultra Test strips) Check fasting blood sugar before breakfast and before supper 100 ea 5RF Refilled lisinopril 20 mg PO DAILY 90 tabs 3RF metformin 1,000 mg PO BID 180 tabs 3RF Coding Level of Care Code Est Pt Level 4 (37819) Complex EM visit Add On G2211 Diagnoses Type 2 diabetes mellitus with hyperglycemia, without long-term current use of insulin E11. Dyslipidemia E78.5 Essential hypertension I10 Additional Codes VIOLETA-7 Assessment Billing - VIOLETA-7 Assessment Tool: VIOLETA-7 Assessment 36537 ([id number])
== END 2023-10-01 10:57 | disposition home or self-care (01) ==
PROVIDERS: PCP Internal Medicine; Visit Provider Internal Medicine
DX: E11.65 Type 2 diabetes mellitus with hyperglycemia (principal); E78.5 Hyperlipidemia, unspecified; I10 Essential (primary) hypertension
CPT/HCPCS: 99214; G2211

== ENCOUNTER 2023-12-18 09:19 | Outpatient (REF) | payer MEDICARE, SELFPAY ==
[2023-12-18 10:34] LABS: Estimated Average Glucose 151 mg/dL; Hemoglobin A1C 174.5677 umol/L; Hemoglobin A1c % 6.9 % (<6.0); Total Hemoglobin (HGBA1C) 3371.1377 umol/L
[2023-12-18 11:15] LABS: Alanine Aminotransferase 22 U/L (0-31); Anion Gap 13 (12-20); Aspartate Amino Transferase 21 U/L (5-31); Blood Urea Nitrogen 21 mg/dL (9-16); Calcium 9.5 mg/dL (8.4-10.2); Carbon Dioxide 26 mmol/L (22-29); Chloride 106 mmol/L (96-108); Cholesterol 149 mg/dL (<200); Estimated Glomerular Filt Rate > 60; Glucose Fasting 136 mg/dL (60-99); HDL Cholesterol 57 mg/dL (>40); LDL Cholesterol Calculated 42 mg/dL (<100); Potassium 4.1 mmol/L (3.3-5.1); Sodium 141 mmol/L (135-145); Triglycerides 254 mg/dL (<150)
== END 2023-12-18 09:20 | disposition home or self-care (01) ==
LOC: HO.HMGCLDS 09:19
PROVIDERS: PCP Internal Medicine; Visit Provider Internal Medicine
DX: E11.65 Type 2 diabetes mellitus with hyperglycemia (principal); I10 Essential (primary) hypertension; E78.5 Hyperlipidemia, unspecified
CPT/HCPCS: 36415; 80048; 80061; 83036; 84450; 84460

== ENCOUNTER → 2023-12-25 13:19 | Outpatient (AMB) | payer MEDICARE, SELFPAY ==
[2023-12-25 13:41] VITALS: BP 120/60; PULSE 105; O2SAT 96; BMI 20.2
--- NOTE | 2023-12-25 13:41 | A.OFFPC_ITS ---
Vital Signs 12/25/23 13:41 Height 4 ft 10 in Weight 96 lb 8 oz BMI 20.2 BP 120/60 Blood Pressure Location Rt brachial Position Sitting Pulse 105 H Pulse Source Pulse Oximeter Pulse Oximetry (%) 96 Oxygen Delivery Method Room Air Intake Visit Reasons: Annual PE/Ok Intake Note: Pt is here today for her PE: Last mammogram 12/27/22, bone density scan 05/31/22, colonoscopy 02/05/22 Allergies Penicillins [PENICILLINS] Allergy (Intermediate, Verified 12/26/23 03:05) RASH Medication List - Last Reconciled 12/26/23 by Wendy Espinosa MD blood sugar diagnostic (Senchauch Ultra Test strips) Check fasting blood sugar before breakfast and before supper cholecalciferol (vitamin D3) 50 mcg PO DAILY empagliflozin 25 mg PO QAM lancets As directed lisinopril 20 mg PO DAILY metformin 1,000 mg PO BID lljnmjbrbsnm-dbtyzzdj-oradrv 1 tab PO DAILY rosuvastatin 10 mg PO Q2D 90 days Tobacco use date assessed: 12/25/23 Fall risk assessment: No Falls in past year Last assessed Fall Risk: 12/25/23 Dental Screening Dental Screen Date: 12/25/23 Did you have a dental visit in the last 12 months?: No Did you have a dental problem in the last 6 months where you did not have access to dental care?: No Was dental information given to patient?: Patient has dentist HPI Annual PE/Ok HPI Details 73 year-old lady with PMHx of diabetes mellitus, currently on empagliflozin 25 mg in the morning and metformin a 1000 mg twice a day, has hyperlipidemia currently on rosuvastatin 10 mg every other day and hypertension currently stable controlled on lisinopril 20 mg daily, here toda y for her physical examination . Has been compliant with her medications, stays active, even does her own [employer] work. Has erratic eating habits however, would frequently skip breakfast, eat a light lunch and a light supper. This morning patient states that she just had a muffin for breakfast and nothing after. Came today complaining of feeling shaky, with random blood sugar at 65 mg per dL here the clinic. She was given for glucose tablets and repeat blood sugar went up to 148 mg/dl , with resolution of her symptoms . She had recent fasting labs done which showed hemoglobin A1c much improved a now at 6.9%, fasting lipids, electrolytes, renal function, liver enzymes are all within normal limits. She is due for her screening mammogram this year, last bone density scan was in 2022 which showed presence of osteopenia in multiple sites, no history of fracture. Last colonoscopy was done in [address] Courtney Merida which revealed normal findings, repeat colonoscopy due again in [address]31. [address] Prince for her eye exams. [facility] Medical History (Updated 12/26/23 @ 03:21 by Wendy Espniosa MD) History of cancer of left breast Hx SBO Osteopenia of multiple sites Diabetic neuropathy Essential hypertension Dyslipidemia Type 2 diabetes mellitus with hyperglycemia, without long-term current use of in sulin Surgical History History of bowel resection History of section H/O mastectomy Family History Father No problems noted. Mother No problems noted. Sister Diabetes Daughter No problems noted. Brother Colon cancer Social History Household Members: Spouse and Other Household Members Other:: daughter Housing: House Are you a primary rn acute care to a significant other at home: No Do you presently have visiting nurse or other home services: No Alcohol intake: never Patient Tobacco Use Status: Never used Tobacco e-Cigarette/Vaping Use: Never Used Current occupational status: retired Current occupation: Right hand dominate Cognitive needs: No Hearing needs: No Vision needs: Yes Questionnaire PHQ-9 Over the last 2 weeks, how often have you been bothered by any of the following problems? 1. Little interest or pleasure in doing things: not at all 2. Feeling down, depressed, or hopeless: not at all 3. Trouble falling or staying asleep, or sleeping too much: not at all 4. Feeling tired or having little energy: not at all 5. Poor appetite or overeating: not at all 6. Feeling bad about yourself - or that you are a failure or have let yourself or your family down: not at all 7. Trouble concentrating on things, such as reading the newspaper or watching television: not at all 8. Moving or speaking so slowly that other people could have noticed. Or the opposite - being so fidgety or restless that you have been moving around a lot more than usual: not at all 9. Thoughts that you would be better off or of hurting yourself in some way: not at all Total score: 0 Depression Screening Interpretation: Negative Depression Screening Done: Yes 47591 - PHQ-9 Billing: Yes Source: Developed by Drs. Rocky Kelly, Nazanin Gorman, Kanu Tang and colleagues, with an educational vanita from [employer]. Thrive Questionnaire Date Thrive assessed: 12/25/23 I am a: Patient What is your living situation today?: I have a steady place to live Within the past 12 months, did the food you bought not last and you didn't have the money to get more?: Never true Within the past 12 months, did you worry whether your food would run out before you got money to buy more?: Never true Do you have trouble paying for medicines?: Yes Do you have trouble getting transportation to medical appointments?: No Do you have trouble paying your heating and electricity bill?: No Do you have trouble taking care of your child, family member or friend?: No Do you have trouble with day-to-day activities such as bathing, preparing meals, shopping, managing finances, etc.?: No Are you currently unemployed and looking for a job?: No Are you interested in more education?: No Please select the resources that you would like help with: Paying for medicine Currently or been in a relationship where the following occur: I choose not to answer THRIVE Score: 0 AUDIT C Alcohol Use Questionnaire (AUDIT-C) 1. How often do you have a drink containing alcohol?: Never Total Score: 0 VIOLETA-7 AMB Questionnaire VIOLETA-7 Date VIOLETA - 7 assessed: 12/25/23 Feeling nervous, anxious, or on edge: 0 = Not at all Not being able to stop or control worryin = Not at all Worrying too much about different things: 0 = Not at all Trouble relaxin = Not at all Being so restless that it is hard to sit still: 0 = Not at all Becoming easily annoyed or irritable: 0 = Not at all Feeling afraid as if something awful might happen: 0 = Not at all Total VIOLETA-7 score (0-4 normal; 5-9 mild; 10-14 moderate; 15-21 severe): 0 Source: Developed by Drs. Rocky Kelly, Nazanin Gorman, Kanu Tang and colleagues, with an educational vanita from [employer]. VIOLETA-7 Assessment Billing VIOLETA-7 Assessment Tool: VIOLETA-7 Assessment 92549 Review of Systems Const Reports no additional complaints Eyes Details: Currently sees Dr. Prince for her routine eye exam and retinopathy screening ENT Reports no additional complaints Card Denies chest pain, Denies rapid heart rate, Denies irregular heart rhythm, Denies leg edema, Denies lightheadedness and Denies dyspnea Resp Denies cough and Denies dyspnea GI Denies abdominal pain, Denies melena, Denies bloating, Denies hematochezia, Reports constipation and Denies heartburn Denies difficulty voiding, Reports nocturia and Denies genital pruritis Musc Reports no additional complaints Skin/Breast Denies breast pain, Denies breast mass and Denies rash Neuro Reports no additional complaints and Reports as per HPI Psych Reports no additional complaints Endo Reports no additional complaints Ascencion/Lymph Reports no additional complaints Aller/Immun Reports no additional complaints Physical exam (Primary Care) Vital Signs: Last Vital Signs Pulse 105 H 12/25/23 13:41 BP 120/60 12/25/23 13:41 Pulse Ox 96 12/25/23 13:41 Oxygen Delivery Method Room Air 12/25/23 13:41 BMI result Body Mass Index 20.2 Tobacco/Smoking Status: Tobacco use Status Tobacco use date assessed 12/25/23 12/25/23 13:44 Patient Tobacco Use Status Never used Tobacco 12/25/23 13:44 e-Cigarette/Vaping Use Never Used 12/25/23 13:44 PHQ-9: PHQ-9 Score PHQ-9: Total score 0 12/26/23 03:08 Depression Screening Interpretation: Negative Thrive Assessment: Date of Thrive Assessment Date Thrive assessed 12/25/23 12/25/23 13:58 Currently or been in a relationship where the following occur: I choose not to answer Advance Care Planning discussion: On file, no changes Date of discussion: 12/25/23 Who was present: Patient Forms completed: Health Care Proxy and MOLST Time spent: 1-15 minutes, on File Actual minutes spent: 10 Const General: cooperative, comfortable and no acute distress Nutritional Appearance: average body habitus Orientation/consciousness: patient oriented x3 HENMT Ears: TM's normal bilaterally and EAC's normal General nose exam: Normal external nose present and No nasal discharge present Face and sinus: Yes face symmetric Mouth: Normal oral and palatal mucosa present and moist mucous membranes Eyes General: appearance normal, both eyes and all related structures Neck Neck: Yes full ROM, Yes no lymphadenopathy and Yes supple Thyroid: Thyroid normal Chest Other: Left mastectomy scar Resp Effort & Inspection: normal respiratory effort and able to speak in complete sentences Auscultation: clear to auscultation bilaterally Cardio Other: S1-S2 present regular rate and rhythm GI Palpation (GI): Soft to palpation, nontender and no guarding Auscultation: normal bowel sounds General: Yes no CVA tenderness Back/Spine/Pelvis Back: no CVA tenderness and No back tenderness Skin General skin exam: no rashes or lesions noted Neuro General: patient oriented x3, gait normal, tone normal, moves all extremities, Normal light touch and pain sensation, no focal motor deficits, CN's II-XI intact bilaterally and normal sensation to monofilament Extrem General: Yes full ROM, Yes no joint enlargement, Yes no clubbing, cyanosis or edema, Yes no calf tenderness and Yes normal gait Psych Appearance: grossly normal and well kempt Mental Status: mental status grossly normal Speech and movement: Normal speech and movement present Affect: normal affect Attitude: cooperative Thought process: Normal thought process present Office Meds glucose 4 gram chewable tablet Performing Provider: Wendy Espinosa MD Performing Location: [facility] [place] [facility] Administered by: Garima Valle RN on 12/25/23 14:08 Dose Route Admin Location Dispensed Lot Number Expiration Date [facility] Supervisor [employer] 16 g PO oral 16 grams [id number] [employer]RO [employer]TRIV Results AMB Random Glucose (hemocue) AMB Random Glucose (hemocue) 65 mg/dL Last Edit by Elvie Mclean CMA on 12/25/23 14:13 AMB Random Glucose (hemocue) AMB Random Glucose (hemocue) 148 mg/dL Last Edit by Elvie Mclean CMA on 12/25/23 14:37 Results Reviewed Results Reviewed: Laboratory Last Values Random Glu (Clinic) 65 mg/dL 12/25/23 14:08 Random Glu (Clinic) 148 mg/dL 12/25/23 14:08 Name: Shaylee Xiao Age/Sex: 73/F : 1950 Unit#: [id number] Attend Dr: Wendy Espinosa MD Re12/18/23 Status: DEP [facility] Disch: SPEC : [id number] MORENO: 12/18/23 STATUS: COMP REQ : [id number] RECD: 12/18/[address]: Wendy Espinosa MD COMP: 12/18/23 ENTERED: 12/18/[address] [facility] [address]: ORDERED: Met Prof Fast, AST, ALT, Lipid Panel Test Result Flag Reference Sodium 141 135-145 mmol/L Potassium 4.1 3.3-5.1 mmol/L CL 106 96-108 mmol/L CO2 26 22-29 mmol/L Gap 13 12-20 BUN 21 H 9-16 mg/dL Creat 0.82 0.5-1.4 mg/dL EGFR > 60 NOTE: For -Panamanian individuals, multiply the result by 1.210. Chronic Kidney Disease: Estimated GFR < 60 mL/min/1.73m2 Severe Kidney Disease: Estimated GFR < 15 mL/min/1.73m2 FBS 136 H 60-99 mg/dL A fasting glucose of 126 mg/dl or greater on more than one occasion is considered diagnostic of diabetes. CA 9.5 8.4-10.2 mg/dL AST (GOT) 21 5-31 U/L ALT (GPT) 22 0-31 U/L Triglyceride 254 H <150 mg/dL Desirable Triglyceride: less than 150 mg/dL Borderline High Triglyceride 150-199 mg/dL High Triglyceride: 200-499 mg/dL Very High Triglyceride: greater than or equal to 5OO mg/dL Cholesterol 149 <200 mg/dL Desirable Cholesterol: less than 200 mg/dL Borderline High Cholesterol: 200-239 mg/dL High Cholesterol: greater than 239 mg/dL LDL Calculated 42 <100 mg/dL Desirable LDL: less than 100 mg/dL Near Optimal/Above Optimal LDL: 110-129 mg/dL Borderline High LDL: 130-159 mg/dL High LDL: 160-189 mg/dL Very High LDL: greater than or equal to 190 mg/dL HDL 57 >40 mg/dL Desirable HDL: greater than 40 mg/dL Note: This HDL assay may give artificially low results in patients with liver disease. Laboratory Tests 12/18/23 09:27 Estimat Average Glucose 151 Hemoglobin A1c % 6.9 H Coding Level of Care Code Est Pt Prev Care >65y(11594) Diagnoses Annual visit for general adult medical examination with abnormal findings Z00.01 Type 2 diabetes mellitus with hyperglycemia, without long-term current use of insulin E11.65 Dyslipidemia E78.5 Essential hypertension I10 Osteopenia of multiple sites M85.89 History of cancer of left breast Z85.3 Additional Codes VIOLETA-7 Assessment Billing - VIOLETA-7 Assessment Tool: VIOLETA-7 Assessment 26344 ([id number]) Vital Signs *Quality* - Advance Care Planning discussion: On file, no changes ([id number]) Vital Signs *Quality* - Time spent: 1-15 minutes, on File ([id number]) Assessment & Plan Assessment & Plan (1) Annual visit for general adult medical examination with abnormal findings: Code(s): Z00.01 - Encounter for general adult medical examination with abnormal findings Plan: Reviewed recent fasting lab results with patient.. Recommended dental visit every 6 months and continue yearly eye exams, currently sees Dr. Prince. Take adequate calcium in diet and vitamin-D 3 at 2000 IU per cap once a day, in addition to weight-bearing exercises to help maintain good muscle tone and weight control. Instructed to do self-breast exam, and continue to get yearly mammogram, schedule today. Repeat another bone density scan next year.. Patient has had COVID vaccines in the past but does not want to get the booster, reminded to get her flu shot for this year, up-to-date with her pneumococcal vaccination, has had 1 shingles vaccine but does not want to get a 2nd dose.. Reminded that she is due for a repeat screening colonoscopy in 2031 (2) Type 2 diabetes mellitus with hyperglycemia, without long-term current use of insulin: Code(s): E11.65 - Type 2 diabetes mellitus with hyperglycemia Category: Medical Plan: Improvement in diabetes control seen today, with latest hemoglobin A1c at 6.9%. Stressed importance of having regular meal times, reinforced importance of following recommended diet set by her dietitian, continue with regular exercise. Up-to-date with her diabetes retinopathy screening, sees Dr. Prince. Reminded to get her flu shot but does not want to get her COVID booster, up -to-date with her pneumococcal vaccinations (3) Dyslipidemia: Code(s): E78.5 - Hyperlipidemia, unspecified Category: Medical Plan: Reviewed recent fasting lipid profile with patient with levels within normal limits . Continue rosuvastatin 10 mg 1 tablet every 2 days , in addition to adherence to low-cholesterol diet and regular exercise, at least 30 minutes 3 to 4 times a week. Advised patient to make healthy food choices, eat more fruits, vegetables, whole grains, wild caught fish and low-fat dairy. Limit amount of meat and fried or fatty food products, as well as processed foods and fast foods. Follow-up scheduled with repeat fasting lipid panel in 03/2024 months. (4) Essential hypertension: Code(s): I10 - Essential (primary) hypertension Category: Medical Plan: Blood pressure stable controlled on lisinopril 5 mg taken once a day (5) Osteopenia of multiple sites: Code(s): M85.89 - Other specified disorders of bone density and structure, multiple sites Category: Medical Plan: Continue with regular weight-bearing exercise, stay active, continue taking cholecalciferol 2000 units daily, calcium from dietary sources. Repeat another bone density scan next year (6) History of cancer of left breast: Comment: Currently on anastrozole, followed by Dr. Padilla Code(s): Z85.3 - Personal history of malignant neoplasm of breast Category: Medical Plan: Screening mammogram ordered today. Orders: Orders AMB Glucose Adult Dose 12/25/23 E11.65 - Type 2 diabetes mellitus with hyperglycemia, E16.2 - Hypoglycemia, unspecified Vitamin D 25-OH Total 03/14/24 E11.40 - Type 2 diabetes mellitus with diabetic neuropathy, unspecified, E11.65 - Type 2 diabetes mellitus with hyperglycemia, E78.5 - Hyperlipidemia, unspecified, I10 - Essential (primary) hypertension, M85.89 - Other specified disorders of bone density and structure, multiple sites AMB Random Glucose (hemocue) 12/25/23 E11.65 - Type 2 diabetes mellitus with hyperglycemia MM tomosynthesis screening BI Today Z12.31 - Encounter for screening mammogram for malignant neoplasm of breast, Z85.3 - Personal history of malignant neoplasm of breast AMB Random Glucose (hemocue) 12/25/23 E11.65 - Type 2 diabetes mellitus with hyperglycemia Hemoglobin A1c 03/14/24 E11.40 - Type 2 diabetes mellitus with diabetic neuropathy, unspecified, E11.65 - Type 2 diabetes mellitus with hyperglycemia, E78.5 - Hyperlipidemia, unspecified, I10 - Essential (primary) hypertension, M85.89 - Other specified disorders of bone density and structure, multiple sites Lipid Panel 03/14/24 E11.40 - Type 2 diabetes mellitus with diabetic neuropathy, unspecified, E11.65 - Type 2 diabetes mellitus with hyperglycemia, E78.5 - Hyperlipidemia, unspecified, I10 - Essential (primary) hypertension, M85.89 - Other specified disorders of bone density and structure, multiple sites Comprehensive Brillion. Panel Fast 03/14/24 E11.40 - Type 2 diabetes mellitus with diabetic neuropathy, unspecified, E11.65 - Type 2 diabetes mellitus with hyperglycemia, E78.5 - Hyperlipidemia, unspecified, I10 - Essential (primary) hypertension, M85.89 - Other specified disorders of bone density and structure, multiple sites
== END ==
PROVIDERS: PCP Internal Medicine; Visit Provider Internal Medicine
DX: Z00.00 Encounter for general adult medical examination without abnormal findings (principal); E11.65 Type 2 diabetes mellitus with hyperglycemia; E78.5 Hyperlipidemia, unspecified; I10 Essential (primary) hypertension; M85.89 Other specified disorders of bone density and structure, multiple sites; Z85.3 Personal history of malignant neoplasm of breast

== ENCOUNTER → 2023-12-25 13:19 | Outpatient (BNVA) | payer MEDICARE, SELFPAY | PROVIDERS: PCP Internal Medicine; Visit Provider Internal Medicine | DX: Z00.01 Encounter for general adult medical examination with abnormal findings (principal); E11.65 Type 2 diabetes mellitus with hyperglycemia; E78.5 Hyperlipidemia, unspecified; I10 Essential (primary) hypertension; M85.89 Other specified disorders of bone density and structure, multiple sites; C50.912 Malignant neoplasm of unspecified site of left female breast; Z79.811 Long term (current) use of aromatase inhibitors; Z79.899 Other long term (current) drug therapy | CPT/HCPCS: 82948; 96127; 99397 ==

== ENCOUNTER 2024-03-16 10:04 | Outpatient (REF) | payer OTHER, SELFPAY ==
--- OUTSIDE RECORDS SUMMARY | 2024-03-16 11:30 | XMS_ITS | Patient Health Record ---
Author Organization [facility] [place] Address [address] [place] [address] Care Team Providers Care Director Of Labor And Delivery Name Role Phone Jesús AGUAYO, Wendy Redding Primary Care Provider Un available Zeny Schwartz Unavailable [phone] Allergies Allergen (clinical drug ingredient) Drug/Non Drug Allergy documented on EMR Reaction Allergy Type Onset Date Status Penicillin rash Drug Allergy Active Reason For Referral No Information Medications Medication SIG (Take, Route, Frequency, Duration) Notes Start Date End Date Status Lisinopril 20 MG 1 tablet Orally Once a day for 30 day(s) Active metFORMIN HCl 1000 MG 1 tablet with a me al Orally Once a day for 30 day(s) Active Pioglitazone HCl 15 MG 1 tablet Orally O nce a day for 30 day(s) Active Rosuvastatin Calcium 10 MG 1 tablet Oral ly Once a day for 30 day(s) Active Extra Depth Orthopedic Shoes (1 Pair) with Customized Heat Molded Multidensity Innersoles (3 Pair) as directed Dx: NIDDM (E11.9), Hammertoe Foot Deformity (M20.41,M20.42), Preulcerative Skin Lesion(s) (L85.1) 06/14/2020 Active Anastrozole 1 MG 1 tablet Orally Once a day for 30 day(s) Active glipiZIDE 5 MG 1 tablet 30 minutes before breakfast Orally BID Active Immunizations Vaccine Route Administration Date Status Comme nts COVID-19 Pfizer BioNTech Vaccine Unknown 05/31/2020 Administered Second Dose: Influenza Unknown 11/03/2019 Administered Social History Tobacco Use: Social History Observation Description Date Details (start date - stop date) Never Smoker NA - NA Tobacco Use/Smoking Question Answer Notes Are you a: nonsmoker Alcohol Screen Question Answer Notes Did you have a drink containing alcohol in the p ast year? No Points 0 Interpretation Negative Tobacco use other than smoking: Question Answer Notes Are you an other tobacco user? No Problems Problem Type SNOMED Code ICD Code Onset Dates Problem Status W/U Status Risk Notes Problem [id number] Type 2 diabetes mellitus with polyneuropathy (E11.42) Active confirmed Plan Of Treatment No Information Insurance Providers Payer Name Payer Address Payer Phone Subscriber Number Group Number Insured Name Patient Relationship to Insured Coverage Start Date Coverage End Date [employer] 65 Medicare Preferred [address] [place] [address] [phone] [id number] Shaylee Xiao Self - patient is the insured Medical (General) History Medical History History ICD Code Diabetic neuropathy Hypertension breast cancer Osteopenia Small bowel obstruction type II diabetes Surgical History Surgery Date(Month/Year) mastectomy bowel resection section
[2024-03-16 13:33] LABS: Estimated Average Glucose 169 mg/dL; Hemoglobin A1C 213.7818 umol/L; Hemoglobin A1c % 7.5 % (<6.0); Total Hemoglobin (HGBA1C) 3690.6109 umol/L
[2024-03-16 13:52] LABS: Alanine Aminotransferase 18 U/L (0-31); Albumin Level 4.3 g/dL (3.5-5.0); Alkaline Phosphatase 68 U/L (39-117); Anion Gap 11 (12-20); Aspartate Amino Transferase 23 U/L (5-31); Bilirubin Total 0.6 mg/dL (0.0-1.0); Blood Urea Nitrogen 21 mg/dL (9-16); Calcium 9.6 mg/dL (8.4-10.2); Carbon Dioxide 27 mmol/L (22-29); Chloride 105 mmol/L (96-108); Cholesterol 149 mg/dL (<200); Estimated Glomerular Filt Rate > 60; Glucose Fasting 199 mg/dL (60-99); HDL Cholesterol 56 mg/dL (>40); LDL Cholesterol Calculated 55 mg/dL (<100); Potassium 3.8 mmol/L (3.3-5.1); Sodium 139 mmol/L (135-145); Total Protein 7.9 g/dL (6.5-8.0); Triglycerides 193 mg/dL (<150)
[2024-03-16 14:15] LABS: Vitamin D 25-OH Total > 154.2 ng/mL (>30)
== END 2024-03-16 10:05 | disposition home or self-care (01) ==
LOC: HO.HMGCLDS 10:04
PROVIDERS: PCP Internal Medicine; Visit Provider Internal Medicine
DX: E11.65 Type 2 diabetes mellitus with hyperglycemia (principal); E11.40 Type 2 diabetes mellitus with diabetic neuropathy, unspecified; I10 Essential (primary) hypertension; E78.5 Hyperlipidemia, unspecified; M85.89 Other specified disorders of bone density and structure, multiple sites
CPT/HCPCS: 36415; 80053; 80061; 82306; 83036

== ENCOUNTER 2024-03-23 10:23 | Outpatient (AMB) | payer MEDICARE, SELFPAY ==
[2024-03-23 10:25] VITALS: BP 110/60; PULSE 96; O2SAT 98; BMI 20.9
--- NOTE | 2024-03-23 10:25 | MHC.PC.OV ---
Vital Signs 03/23/24 10:25 Height 4 ft 10 in Weight 100 lb BMI 20.9 BP 110/60 Blood Pressure Location Lt brachial Position Sitting Pulse 96 Pulse Source Pulse Oximeter Pulse Oximetry (%) 98 Oxygen Delivery Method Room Air Intake Visit Reasons: Follow-up diabetes after new medication added Intake Note: Pt is here today f/u DM after starting new med Allergies Penicillins [PENICILLINS] Allergy (Intermediate, Verified 03/23/24 11:18) RASH Medication List - Last Reconciled 03/23/24 by Wendy Espinosa MD blood sugar diagnostic ([email or web address] Test strips) Check fasting blood sugar before breakfast and before supper cholecalciferol (vitamin D3) 50 mcg PO DAILY empagliflozin 25 mg PO QAM lancets As directed lisinopril 20 mg PO DAILY metformin 1,000 mg PO BID oswnntafqlvq-vxxwlkiu-krurtc 1 tab PO DAILY rosuvastatin 10 mg PO Q2D 90 days Tobacco use date assessed: 03/23/24 Fall risk assessment: 1 Fall in past year Last assessed Fall Risk: 03/23/24 Dental Screening Dental Screen Date: 03/23/24 Did you have a dental visit in the last 12 months?: No Did you have a dental problem in the last 6 months where you did not have access to dental care?: No Was dental information given to patient?: No (dentures) HPI Follow-up diabetes after new medication added HPI Details The patient is a 73-year-old female presenting follow-up on her diabetes mellitus. - Type 2 Diabetes Mellitus is managed with empagliflozin, metformin, and glipizide , but ran out of latter medication for 1 month now.. She Complains of frequent urination especially at night but denies any hypoglycemic events. polyuria at night but avoids hypoglycemia. She has been trying to adhere to recommended diet, but admits to not getting any regular exercise. - Essential Hypertension is effectively managed with lisinopril. - Hyperlipidemia is controlled with rosuvastatin. - She has history of breast cancers/p left mastectomy, but patient declines getting further mammogram screenings, but consents to bone density evaluation for follow-up on osteopenia. - She has received both influenza and pneumonia vaccinations. but RSV and shingles vaccinations were declined. - The patient continues Vitamin D supplementation. [facility] Medical History (Updated 03/24/24 @ 00:34 by Wendy Espinosa MD) Mammogram declined History of cancer of left breast Hx SBO Osteopenia of multiple sites Diabetic neuropathy Essential hypertension Dyslipidemia Type 2 diabetes mellitus with hyperglycemia, without long-term current use of insulin Surgical History History of bowel resection History of section H/O mastectomy Family History Father No problems noted. Mother No problems noted. Sister Diabetes Daughter No problems noted. Brother Colon cancer Social History Household Members: Spouse and Other Household Members Other:: daughter Housing: House Are you a primary ocular care aide to a significant other at home: No Do you presently have visiting nurse or other home services: No Alcohol intake: never Patient Tobacco Use Status: Never used Tobacco e-Cigarette/Vaping Use: Never Used Current occupational status: retired Current occupation: Right hand dominate Cognitive needs: No Hearing needs: No Vision needs: Yes Questionnaire PHQ-9 Over the last 2 weeks, how often have you been bothered by any of the following problems? 1. Little interest or pleasure in doing things: several days 2. Feeling down, depressed, or hopeless: not at all 3. Trouble falling or staying asleep, or sleeping too much: not at all 4. Feeling tired or having little energy: not at all 5. Poor appetite or overeating: not at all 6. Feeling bad about yourself - or that you are a failure or have let yourself or your family down: not at all 7. Trouble concentrating on things, such as reading the newspaper or watching television: not at all 8. Moving or speaking so slowly that other people could have noticed. Or the opposite - being so fidgety or restless that you have been moving around a lot more than usual: not at all 9. Thoughts that you would be better off or of hurting yourself in some way: not at all Total score: 1 Depression Screening Interpretation: Negative Depression Screening Done: Yes 88007 - PHQ-9 Billing: Yes Source: Developed by Drs. Rocky Kelly, Nazanin Gorman, Kanu Tang and colleagues, with an educational vanita from [employer]. Thrive Questionnaire Date Thrive assessed: 03/23/24 I am a: Patient What is your living situation today?: I have a steady place to live Within the past 12 months, did the food you bought not last and you didn't have the money to get more?: Never true Within the past 12 months, did you worry whether your food would run out before you got money to buy more?: Never true Do you have trouble paying for medicines?: No Do you have trouble getting transportation to medical appointments?: No Do you have trouble paying your heating and electricity bill?: No Do you have trouble taking care of your child, family member or friend?: No Do you have trouble with day-to-day activities such as bathing, preparing meals, shopping, managing finances, etc.?: No Are you currently unemployed and looking for a job?: No Are you interested in more education?: No THRIVE Score: 0 AUDIT C Alcohol Use Questionnaire (AUDIT-C) 1. How often do you have a drink containing alcohol?: Never Total Score: 0 VIOLETA-7 AMB Questionnaire VIOLETA-7 Date VIOLETA - 7 assessed: 03/23/24 Feeling nervous, anxious, or on edge: 0 = Not at all Not being able to stop or control worryin = Not at all Worrying too much about different things: 0 = Not at all Trouble relaxin = Not at all Being so restless that it is hard to sit still: 0 = Not at all Becoming easily annoyed or irritable: 0 = Not at all Feeling afraid as if something awful might happen: 0 = Not at all Total VIOLETA-7 score (0-4 normal; 5-9 mild; 10-14 moderate; 15-21 severe): 0 Source: Developed by Drs. Rocky Kelly, Nazanin Gorman, Kanu Tagn and colleagues, with an educational vanita from [employer]. VIOLETA-7 Assessment Billing VIOLETA-7 Assessment Tool: VIOLETA-7 Assessment 00147 Review of Systems Const Reports no additional complaints Eyes Details: Currently sees Dr. Prince for her routine eye exam and retinopathy screening ENT Reports no additional complaints Card Denies chest pain, Denies rapid heart rate, Denies irregular heart rhythm, Denies leg edema, Denies lightheadedness and Denies dyspnea Resp Denies cough and Denies dyspnea GI Denies abdominal pain, Denies melena, Denies bloating, Denies hematochezia, Denies change in bowel habits and Denies heartburn Denies difficulty voiding, Reports nocturia and Denies genital pruritis Musc Reports no additional complaints Skin/Breast Denies breast pain, Denies breast mass and Denies rash Neuro Reports no additional complaints and Reports as per HPI Psych Reports no additional complaints Endo Reports no additional complaints Ascencion/Lymph Reports no additional complaints Aller/Immun Reports no additional complaints Physical exam (Primary Care) Vital Signs: Last Vital Signs Pulse 96 03/23/24 10:25 BP 110/60 03/23/24 10:25 Pulse Ox 98 03/23/24 10:25 Oxygen Delivery Method Room Air 03/23/24 10:25 BMI result Body Mass Index 20.9 Tobacco/Smoking Status: Tobacco use Status Tobacco use date assessed 03/23/24 03/23/24 10:28 Patient Tobacco Use Status Never used Tobacco 03/23/24 10:28 e-Cigarette/Vaping Use Never Used 03/23/24 10:28 PHQ-9: PHQ-9 Score PHQ-9: Total score 1 03/23/24 11:17 Depression Screening Interpretation: Negative Thrive Assessment: Date of Thrive Assessment Date Thrive assessed 03/23/24 03/23/24 10:28 Const General: comfortable and no acute distress Nutritional Appearance: average body habitus Orientation/consciousness: patient oriented x3 [facility] General nose exam: Normal external nose present Face and sinus: Yes face symmetric Mouth: Normal oral and palatal mucosa present and moist mucous membranes Eyes General: appearance normal, both eyes and all related structures Neck Neck: Yes full ROM, Yes no lymphadenopathy and Yes supple Thyroid: Thyroid normal Chest Other: Left mastectomy scar Resp Effort & Inspection: normal respiratory effort and able to speak in complete sentences Auscultation: clear to auscultation bilaterally Cardio Other: S1-S2 present regular rate and rhythm GI Palpation (GI): Soft to palpation, nontender and no guarding Auscultation: normal bowel sounds General: Yes no CVA tenderness Back/Spine/Pelvis Back: no CVA tenderness and No back tenderness Skin General skin exam: no rashes or lesions noted Neuro General: patient oriented x3, gait normal, tone normal, moves all extremities, Normal light touch and pain sensation, no focal motor deficits, CN's II-XI intact bilaterally and normal sensation to monofilament Extrem General: Yes full ROM, Yes no joint enlargement, Yes no clubbing, cyanosis or edema, Yes no calf tenderness and Yes normal gait Psych Appearance: grossly normal and well kempt Mental Status: mental status grossly normal Speech and movement: Normal speech and movement present Affect: normal affect Attitude: cooperative Thought process: Normal thought process present Results Reviewed Results Reviewed: Laboratory Tests 12/18/23 03/16/24 09:27 10:09 Estimat Average Glucose 151 169 Hemoglobin A1c % 6.9 H 7.5 H Name: Shaylee Xiao Age/Sex: 73/F : 1950 Unit#: [id number] Attend Dr: Wendy Espinosa MD Re03/16/24 Status: DEP REF Location: [facility] Disch: SPEC : [id number] MORENO: 03/16/24 STATUS: COMP REQ : [id number] RECD: 03/16/24-[address]: Wendy Espinosa MD COMP: 03/16/24-1414 ENTERED: 03/16/24-[address]: ORDERED: CMP Fast, Lipid Panel, Vitamin D 25-OH Test Result Flag Reference Sodium 139 135-145 mmol/L Potassium 3.8 3.3-5.1 mmol/L CL 105 96-108 mmol/L CO2 27 22-29 mmol/L Gap 11 L 12-20 BUN 21 H 9-16 mg/dL Creat 0.81 0.5-1.4 mg/dL eGFR > 60 Chronic Kidney Disease: Estimated GFR < 60 mL/min/1.73m2 Severe Kidney Disease: Estimated GFR < 15 mL/min/1.73m2 FBS 199 H 60-99 mg/dL A fasting glucose of 126 mg/dl or greater on more than one occasion is considered diagnostic of diabetes. CA 9.6 8.4-10.2 mg/dL Total Bili 0.6 0.0-1.0 mg/dL AST (GOT) 23 5-31 U/L ALT (GPT) 18 0-31 U/L Protein, Total 7.9 6.5-8.0 g/dL Alb 4.3 3.5-5.0 g/dL Triglyceride 193 H <150 mg/dL Desirable Triglyceride: less than 150 mg/dL Borderline High Triglyceride 150-199 mg/dL High Triglyceride: 200-499 mg/dL Very High Triglyceride: greater than or equal to 5OO mg/dL Cholesterol 149 <200 mg/dL Desirable Cholesterol: less than 200 mg/dL Borderline High Cholesterol: 200-239 mg/dL High Cholesterol: greater than 239 mg/dL LDL Calculated 55 <100 mg/dL Desirable LDL: less than 100 mg/dL Near Optimal/Above Optimal LDL: 110-129 mg/dL Borderline High LDL: 130-159 mg/dL High LDL: 160-189 mg/dL Very High LDL: greater than or equal to 190 mg/dL HDL 56 >40 mg/dL Desirable HDL: greater than 40 mg/dL Note: This HDL assay may give artificially low results in patients with liver disease. Alk Phos 68 39-117 U/L Vit D 25-OH Tot > 154.2 >30 ng/mL Health Based Reference Values* < 20 ng/mL Deficient 20-30 ng/mL Insufficient > 30 ng/mL Sufficient Coding Level of Care Code Est Pt Level 4 (20523) Complex EM visit Add On G2211 Diagnoses Type 2 diabetes mellitus with hyperglycemia, without long-term current use of insulin E11.65 Osteopenia of multiple sites M85.89 Dyslipidemia E78.5 Essential hypertension I10 History of cancer of left breast Z85.3 Mammogram declined Z53.20 Additional Codes PHQ-9 - 18123 - PHQ-9 Billing: Yes ([id number]) VIOLETA-7 Assessment Billing - VIOLETA-7 Assessment Tool: VIOLETA-7 Assessment 10374 ([id number]) Assessment & Plan Assessment & Plan (1) Type 2 diabetes mellitus with hyperglycemia, without long-term current use of insulin: Code(s): E11.65 - Type 2 diabetes mellitus with hyperglycemia Category: Medical (2) Osteopenia of multiple sites: Code(s): M85.89 - Other specified disorders of bone density and structure, multiple sites Category: Medical (3) Dyslipidemia: Code(s): E78.5 - Hyperlipidemia, unspecified Category: Medical (4) Essential hypertension: Code(s): I10 - Essential (primary) hypertension Category: Medical (5) History of cancer of left breast: Comment: was on anastrozole, followed by Dr. Padilla Code(s): Z85.3 - Personal history of malignant neoplasm of breast Category: Medical (6) Mammogram declined: Code(s): Z53.20 - Procedure and treatment not carried out because of patient's decision for unspecified reasons Category: Medical Plan The management of Type 2 Diabetes Mellitus includes continuation of empagliflozin, metformin, and glipizide prescription sent to help control blood sugar levels. Hypertension is managed with lisinopril, . Hyperlipidemia treatment with rosuvastatin should continue. The patient, with a history of Breast Cancer, has opted out of the mammogram, aware of risks of not getting regular mammogram screenings , but agreed to proceed with a bone density examination. Her vaccination history is reviewed, with plans to maintain Vitamin D supplementation. Will see her back for follow-up in 06/21/2024 after fasting labs done Patient was informed and verbally consented to the use of an ambient scribe for clinic note documentation during this visit. Orders: Orders Hemoglobin A1c 06/02/24 E11.65 - Type 2 diabetes mellitus with hyperglycemia, E78.5 - Hyperlipidemia, unspecified, I10 - Essential (primary) hypertension, M85.89 - Other specified disorders of bone density and structure, multiple sites, Z53.20 - Procedure and treatment not carried out because of patient's decision for unspecified reasons, Z85.3 - Personal history of malignant neoplasm of breast Microalbumin, Random (w Creat) 06/02/24 E11.65 - Type 2 diabetes mellitus with hyperglycemia, E78.5 - Hyperlipidemia, unspecified, I10 - Essential (primary) hypertension, M85.89 - Other specified disorders of bone density and structure, multiple sites, Z53.20 - Procedure and treatment not carried out because of patient's decision for unspecified reasons, Z85.3 - Personal history of malignant neoplasm of breast Alanine Aminotransferase 06/02/24 E11.65 - Type 2 diabetes mellitus with hyperglycemia, E78.5 - Hyperlipidemia, unspecified, I10 - Essential (primary) hypertension, M85.89 - Other specified disorders of bone density and structure, multiple sites, Z53.20 - Procedure and treatment not carried out because of patient's decision for unspecified reasons, Z85.3 - Personal history of malignant neoplasm of breast Vitamin D 25-OH Total 06/02/24 E11.65 - Type 2 diabetes mellitus with hyperglycemia, E78.5 - Hyperlipidemia, unspecified, I10 - Essential (primary) hypertension, M85.89 - Other specified disorders of bone density and structure, multiple sites, Z53.20 - Procedure and treatment not carried out because of patient's decision for unspecified reasons, Z85.3 - Personal history of malignant neoplasm of breast XR DEXA axial skeleton 03/23/24 M85.89 - Other specified disorders of bone density and structure, multiple sites Lipid Panel 06/02/24 E11.65 - Type 2 diabetes mellitus with hyperglycemia, E78.5 - Hyperlipidemia, unspecified, I10 - Essential (primary) hypertension, M85.89 - Other specified disorders of bone density and structure, multiple sites, Z53.20 - Procedure and treatment not carried out because of patient's decision for unspecified reasons, Z85.3 - Personal history of malignant neoplasm of breast Aspartate Amino Transferase 06/02/24.65 - Type 2 diabetes mellitus with hyperglycemia, E78.5 - Hyperlipidemia, unspecified, I10 - Essential (primary) hypertension, M85.89 - Other specified disorders of bone density and structure, multiple sites, Z53.20 - Procedure and treatment not carried out because of patient's decision for unspecified reasons, Z85.3 - Personal history of malignant neoplasm of breast Basic Metabolic Panel Fasting 06/02/24 E11.65 - Type 2 diabetes mellitus with hyperglycemia, E78.5 - Hyperlipidemia, unspecified, I10 - Essential (primary) hypertension, M85.89 - Other specified disorders of bone density and structure, multiple sites, Z53.20 - Procedure and treatment not carried out because of patient's decision for unspecified reasons, Z85.3 - Personal history of malignant neoplasm of breast Medications: Changed From glipizide 5 mg PO BID To glipizide 5 mg PO BID 3 months 180 tabs 2RF Refilled metformin 1,000 mg PO BID 180 tabs 3RF lisinopril 20 mg PO DAILY 90 tabs 3RF empagliflozin Take 1 hour before breakfast and before any medication, only with glass of water 25 mg PO QAM 90 tabs 3RF E11.65 - Type 2 diabetes mellitus with hyperglycemia
== END 2024-03-23 13:41 | disposition home or self-care (01) ==
PROVIDERS: PCP Internal Medicine; Visit Provider Internal Medicine
DX: E11.65 Type 2 diabetes mellitus with hyperglycemia (principal); M85.89 Other specified disorders of bone density and structure, multiple sites; E78.5 Hyperlipidemia, unspecified; I10 Essential (primary) hypertension; Z85.3 Personal history of malignant neoplasm of breast; Z53.20 Procedure and treatment not carried out because of patient's decision for unspecified reasons

== ENCOUNTER → 2024-03-23 10:23 | Outpatient (BNVA) | payer MEDICARE, SELFPAY | PROVIDERS: PCP Internal Medicine; Visit Provider Internal Medicine | DX: E11.65 Type 2 diabetes mellitus with hyperglycemia (principal); M85.89 Other specified disorders of bone density and structure, multiple sites; E78.5 Hyperlipidemia, unspecified; I10 Essential (primary) hypertension; Z85.3 Personal history of malignant neoplasm of breast | CPT/HCPCS: 96127; 99212 ==

== ENCOUNTER 2024-06-16 08:21 | Outpatient (REF) | payer OTHER, SELFPAY ==
--- OUTSIDE RECORDS SUMMARY | 2024-06-16 08:26 | XMS_ITS | Patient Health Record ---
Author Organization [facility] [place] Address [address] [address] Care Team Providers Care Condenser Tube Tender Name Role Phone Jesús AGUAYO, Wendy Redding Primary Care Provider Un available Zeny Schwartz Unavailable [phone] Allergies Allergen (clinical drug ingredient) Drug/Non Drug [...] Problem Status W/U Status Risk Notes Problem [id number] Type 2 diabetes mellitus with polyneuropathy (E11.42) Active confirmed Plan Of Treatment No Information Insurance Providers Payer Name Payer Address Payer Phone Subscriber Number Group Number Insured Name Patient Relationship to Insured Coverage Start Date Coverage End Date [employer] 65 Medicare Preferred [address] [place] [address] [phone] [id number] Shaylee Xiao Self - patient is the insured Medical (General) History Medical History History ICD Code Diabetic neuropathy Hypertension breast cancer Osteopenia Small bowel obstruction type II diabetes Surgical History Surgery Date(Month/Year) mastectomy bowel resection section
[2024-06-16 10:28] LABS: Estimated Average Glucose 166 mg/dL; Hemoglobin A1C 203.6784 umol/L; Hemoglobin A1c % 7.4 % (<6.0); Total Hemoglobin (HGBA1C) 3547.8261 umol/L
[2024-06-16 10:53] LABS: Alanine Aminotransferase 15 U/L (0-31); Anion Gap 12 (12-20); Aspartate Amino Transferase 23 U/L (5-31); Blood Urea Nitrogen 24 mg/dL (9-16); Calcium 9.4 mg/dL (8.4-10.2); Carbon Dioxide 25 mmol/L (22-29); Chloride 107 mmol/L (96-108); Cholesterol 132 mg/dL (<200); Estimated Glomerular Filt Rate > 60; Glucose Fasting 119 mg/dL (60-99); HDL Cholesterol 53 mg/dL (>40); LDL Cholesterol Calculated 46 mg/dL (<100); Potassium 3.9 mmol/L (3.3-5.1); Sodium 140 mmol/L (135-145); Triglycerides 168 mg/dL (<150); Vitamin D 25-OH Total 149.8 ng/mL (>30)
[2024-06-16 10:56] LABS: Creatinine Urine 45.83 mg/dL; Microalbum/Creatinine Ratio Ur 21.8 ug/mg cr (<30)
== END 2024-06-16 08:22 | disposition home or self-care (01) ==
LOC: HO.HMGCLDS 08:21
PROVIDERS: PCP Internal Medicine; Visit Provider Internal Medicine
DX: Z85.3 Personal history of malignant neoplasm of breast (principal); E11.65 Type 2 diabetes mellitus with hyperglycemia; I10 Essential (primary) hypertension; E78.5 Hyperlipidemia, unspecified; M85.89 Other specified disorders of bone density and structure, multiple sites; Z53.20 Procedure and treatment not carried out because of patient's decision for unspecified reasons
CPT/HCPCS: 36415; 80048; 80061; 82043; 82306; 82570; 83036; 84450; 84460

== ENCOUNTER 2024-06-22 10:30 | Outpatient (AMB) | payer MEDICARE, SELFPAY ==
[2024-06-22 10:34] VITALS: BP 120/60; PULSE 104; RESP 15; TEMP 36.7; O2SAT 98; BMI 21.3
--- NOTE | 2024-06-22 10:34 | A.OFFPC_ITS ---
Vital Signs 06/22/24 10:34 Height 4 ft 10 in Weight 102 lb BMI 21.3 BP 120/60 Blood Pressure Location Rt brachial Position Sitting Respiration 15 Pulse 104 H Pulse Source Pulse Oximeter Temp 98.1 F Temp Source Oral Pulse Oximetry (%) 98 Oxygen Delivery Method Room Air Intake Visit Reasons: 3m follow up Intake Note: Pt is here for her 3mo. f/u Allergies Penicillins [PENICILLINS] Allergy (Intermediate, Verified 06/22/24 10:58) RASH Medication List - Last Reconciled 06/22/24 by Wendy Espinosa MD blood sugar diagnostic ([email or web address] Ultra Test strips) Check fasting blood sugar before breakfast and before supper cholecalciferol (vitamin D3) 50 mcg PO DAILY empagliflozin 25 mg PO QAM glipizide 5 mg PO BID 3 months lancets As directed lisinopril 20 mg PO DAILY metformin 1,000 mg PO BID eidzajslflkc-jwuwieet-phfbzs 1 tab PO DAILY rosuvastatin 10 mg PO Q2D 90 days Tobacco use date assessed: 06/22/24 Fall risk assessment: No Falls in past year Last assessed Fall Risk: 06/22/24 Dental Screening Dental Screen Date: 06/22/24 Did you have a dental visit in the last 12 months?: No Did you have a dental problem in the last 6 months where you did not have access to dental care?: No Was dental information given to patient?: Patient has dentist HPI 3m follow up HPI Details 73-year-old lady here today for follow-u p on her diabetes mellitus, hypertension and dyslipidemia. She has been taking her medicines as directed, and has been trying to adhere to a diabetic diet but admits to not getting much exercise over the last 3 months. [facility] Medical History Mammogram declined History of cancer of left breast Hx SBO Osteopenia of multiple sites Diabetic neuropathy Essential hypertension Dyslipidemia Type 2 diabetes mellitus with hyperglycemia, without long-term current use of insulin Surgical History History of bowel resection History of section H/O mastectomy Family History Father No problems noted. Mother No problems noted. Sister Diabetes Daughter No problems noted. Brother Colon cancer Social History Household Members: Spouse and Other Household Members Other:: daughter Housing: House Are you a primary floor care specialist to a significant other at home: No Do you presently have visiting nurse or other home services: No Alcohol intake: never Patient Tobacco Use Status: Never used Tobacco e-Cigarette/Vaping Use: Never Used Current occupational status: retired Current occupation: Right hand dominate Cognitive needs: No Hearing needs: No Vision needs: Yes Questionnaire PHQ-9 Over the last 2 weeks, how often have you been bothered by any of the following problems? 1. Little interest or pleasure in doing things: not at all 2. Feeling down, depressed, or hopeless: not at all 3. Trouble falling or staying asleep, or sleeping too much: not at all 4. Feeling tired or having little energy: not at all 5. Poor appetite or overeating: not at all 6. Feeling bad about yourself - or that you are a failure or have let yourself or your family down: not at all 7. Trouble concentrating on things, such as reading the newspaper or watching television: not at all 8. Moving or speaking so slowly that other people could have noticed. Or the opposite - being so fidgety or restless that you have been moving around a lot more than usual: not at all 9. Thoughts that you would be better off or of hurting yourself in some way: not at all Total score: 0 Depression Screening Interpretation: Negative Depression Screening Done: Yes 04854 - PHQ-9 Billing: Yes Source: Developed by Drs. Rocky Kelly, Nazanin Gorman, Kanu Tang and colleagues, with an educational vanita from [employer]. Thrive Questionnaire Date Thrive assessed: 06/22/24 I am a: Patient What is your living situation today?: I have a steady place to live Within the past 12 months, did the food you bought not last and you didn't have the money to get more?: I choose not to answer this question Within the past 12 months, did you worry whether your food would run out before you got money to buy more?: I choose not to answer this question Do you have trouble paying for medicines?: No Do you have trouble getting transportation to medical appointments?: No Do you have trouble paying your heating and electricity bill?: No Do you have trouble taking care of your child, family member or friend?: No Do you have trouble with day-to-day activities such as bathing, preparing meals, shopping, managing finances, etc.?: No Are you currently unemployed and looking for a job?: No Are you interested in more education?: No Please select the resources that you would like help with: Utilities Currently or been in a relationship where the following occur: I choose not to answer THRIVE Score: 0 AUDIT C Alcohol Use Questionnaire (AUDIT-C) 1. How often do you have a drink containing alcohol?: Never Total Score: 0 VIOLETA-7 AMB Questionnaire VIOLETA-7 Date VIOLETA - 7 assessed: 06/22/24 Feeling nervous, anxious, or on edge: 0 = Not at all Not being able to stop or control worryin = Not at all Worrying too much about different things: 0 = Not at all Trouble relaxin = Not at all Being so restless that it is hard to sit still: 0 = Not at all Becoming easily annoyed or irritable: 0 = Not at all Feeling afraid as if something awful might happen: 0 = Not at all Total VIOLETA-7 score (0-4 normal; 5-9 mild; 10-14 moderate; 15-21 severe): 0 Source: Developed by Drs. Rocky Kelly, Nazanin Gorman, Kanu Tang and colleagues, with an educational vanita from [employer]. VIOLETA-7 Assessment Billing VIOLETA-7 Assessment Tool: VIOLETA-7 Assessment 03460 Review of Systems Const Reports no additional complaints Eyes Details: Currently sees Dr. Prince for her routine eye exam and retinopathy screening ENT Reports no additional complaints Card Denies chest pain, Denies rapid heart rate, Denies irregular heart rhythm, Denies leg edema, Denies lightheadedness and Denies dyspnea Resp Denies cough and Denies dyspnea GI Denies abdominal pain, Denies melena, Denies bloating, Denies hematochezia, Denies change in bowel habits and Denies heartburn Denies difficulty voiding, Reports nocturia and Denies genital pruritis Musc Reports no additional complaints Skin/Breast Denies breast pain, Denies breast mass and Denies rash Neuro Reports no additional complaints and Reports as per HPI Psych Reports no additional complaints Endo Reports no additional complaints Ascencion/Lymph Reports no additional complaints Aller/Immun Reports no additional complaints Physical exam (Primary Care) Vital Signs: Last Vital Signs Temp 98.1 F 06/22/24 10:34 Pulse 104 H 06/22/24 10:34 Resp 15 06/22/24 10:34 BP 120/60 06/22/24 10:34 Pulse Ox 98 06/22/24 10:34 Oxygen Delivery Method Room Air 06/22/24 10:34 BMI result Body Mass Index 21.3 Tobacco/Smoking Status: Tobacco use Status Tobacco use date assessed 06/22/24 06/22/24 10:36 Patient Tobacco Use Status Never used Tobacco 06/22/24 10:36 e-Cigarette/Vaping Use Never Used 06/22/24 10:36 PHQ-9: PHQ-9 Score PHQ-9: Total score 0 06/22/24 10:57 Depression Screening Interpretation: Negative Thrive Assessment: Date of Thrive Assessment Date Thrive assessed 06/22/24 06/22/24 10:36 Currently or been in a relationship where the following occur: I choose not to answer Const General: comfortable and no acute distress Nutritional Appearance: average body habitus Orientation/consciousness: patient oriented x3 [facility] General nose exam: Normal external nose present Face and sinus: Yes face symmetric Mouth: Normal oral and palatal mucosa present and moist mucous membranes Eyes General: appearance normal, both eyes and all related structures Neck Neck: Yes full ROM, Yes no lymphadenopathy and Yes supple Thyroid: Thyroid normal Chest Other: Left mastectomy scar Resp Effort & Inspection: normal respiratory effort and able to speak in complete sentences Auscultation: clear to auscultation bilaterally Cardio Other: S1-S2 present regular rate and rhythm GI Palpation (GI): Soft to palpation, nontender and no guarding Auscultation: normal bowel sounds General: Yes no CVA tenderness Back/Spine/Pelvis Back: no CVA tenderness and No back tenderness Skin General skin exam: no rashes or lesions noted Neuro General: patient oriented x3, gait normal, tone normal, moves all extremities, Normal light touch and pain sensation, no focal motor deficits, CN's II-XI intact bilaterally and normal sensation to monofilament Extrem General: Yes full ROM, Yes no joint enlargement, Yes no clubbing, cyanosis or edema, Yes no calf tenderness and Yes normal gait Psych Appearance: grossly normal and well kempt Mental Status: mental status grossly normal Speech and movement: Normal speech and movement present Affect: normal affect Attitude: cooperative Thought process: Normal thought process present Results Reviewed Results Reviewed: Name: Shaylee Xiao Age/Sex: 73/F : 1950 Unit#: [id number] Attend Dr: Wendy Espinosa MD Re06/16/24 Status: DEP [facility] Disch: SPEC : [id number] MORENO: 06/16/24 STATUS: COMP REQ : [id number] RECD: 06/16/[address]: Wendy Espinosa MD COMP: 06/16/24 ENTERED: 06/16/[address]: ORDERED: Met Prof Fast, AST, ALT, Lipid Panel, Vitamin D 25-OH Test Result Flag Reference Sodium 140 135-145 mmol/L Potassium 3.9 3.3-5.1 mmol/L CL 107 96-108 mmol/L CO2 25 22-29 mmol/L Gap 12 12-20 BUN 24 H 9-16 mg/dL Creat 0.69 0.5-1.4 mg/dL eGFR > 60 Chronic Kidney Disease: Estimated GFR < 60 mL/min/1.73m2 Severe Kidney Disease: Estimated GFR < 15 mL/min/1.73m2 FBS 119 H 60-99 mg/dL A fasting glucose from 100-125 mg/dl is considered impaired (pre-diabetes). CA 9.4 8.4-10.2 mg/dL AST (GOT) 23 5-31 U/L ALT (GPT) 15 0-31 U/L Triglyceride 168 H <150 mg/dL Desirable Triglyceride: less than 150 mg/dL Borderline High Triglyceride 150-199 mg/dL High Triglyceride: 200-499 mg/dL Very High Triglyceride: greater than or equal to 5OO mg/dL Cholesterol 132 <200 mg/dL Desirable Cholesterol: less than 200 mg/dL Borderline High Cholesterol: 200-239 mg/dL High Cholesterol: greater than 239 mg/dL LDL Calculated 46 <100 mg/dL Desirable LDL: less than 100 mg/dL Near Optimal/Above Optimal LDL: 110-129 mg/dL Borderline High LDL: 130-159 mg/dL High LDL: 160-189 mg/dL Very High LDL: greater than or equal to 190 mg/dL HDL 53 >40 mg/dL Desirable HDL: greater than 40 mg/dL Note: This HDL assay may give artificially low results in patients with liver disease. Vitamin D 25-OH 149.8 >30 ng/mL Health Based Reference Values* < 20 ng/mL Deficient 20-30 ng/mL Insufficient > 30 ng/mL Sufficient Laboratory Tests 06/16/24 06/16/24 08:28 08:35 Estimat Average Glucose 166 Hemoglobin A1c % 7.4 H Urine Creatinine 45.83 Urine Microalbumin 10.0 Microalb/Creat Ratio 21.8 Coding Level of Care Code Est Pt Level 4 (18981) Complex EM visit Add On G2211 Diagnoses Type 2 diabetes mellitus with hyperglycemia, without long-term current use of insulin E11.65 Essential hypertension I10 Dyslipidemia E78.5 Additional Codes PHQ-9 - 77327 - PHQ-9 Billing: Yes ([id number]) VIOLETA-7 Assessment Billing - VILOETA-7 Assessment Tool: VIOLETA-7 Assessment 57751 ([id number]) Assessment & Plan Assessment & Plan (1) Type 2 diabetes mellitus with hyperglycemia, without long-term current use of insulin: Code(s): E11.65 - Type 2 diabetes mellitus with hyperglycemia Category: Medical Plan: Hemoglobin A1c came back at 7.4%, slightly improved from last check, but still not at goal of less than 6.5. Reinforced importance of adhering to recommended diet and getting regular exercise, will continue on current treatment. See her back for follow-up in three months after fasting labs done (2) Essential hypertension: Code(s): I10 - Essential (primary) hypertension Category: Medical Plan: Blood pressure at goal of less than 130/80. Continue with current medication. Reinforced importance of following a low sodium diet, getting regular exercise, and lowering stress levels. (3) Dyslipidemia: Code(s): E78.5 - Hyperlipidemia, unspecified Category: Medical Plan: Reviewed recent fasting lipid profile with patient with normal levels except for slightly elevated triglycerides . Continue rosuvastatin 10 mg every other day , in addition to adherence to low-cholesterol diet and regular exercise, at least 30 minutes 3 to 4 times a week. Advised patient to make healthy food choices, eat more fruits, vegetables, whole grains, wild caught fish and low- fat dairy. Limit amount of meat and fried or fatty food products, as well as processed foods and fast foods. Follow-up scheduled with repeat fasting lipid panel in 3 months. Orders: Orders Hemoglobin A1c 09/05/24.65 - Type 2 diabetes mellitus with hyperglycemia, E78.5 - Hyperlipidemia, unspecified, I10 - Essential (primary) hypertension Alanine Aminotransferase 09/05/24.65 - Type 2 diabetes mellitus with hyperglycemia, E78.5 - Hyperlipidemia, unspecified, I10 - Essential (primary) hypertension Aspartate Amino Transferase 09/05/24.65 - Type 2 diabetes mellitus with hyperglycemia, E78.5 - Hyperlipidemia, unspecified, I10 - Essential (primary) hypertension Basic Metabolic Panel Fasting 09/05/24.65 - Type 2 diabetes mellitus with hyperglycemia, E78.5 - Hyperlipidemia, unspecified, I10 - Essential (primary) hypertension Lipid Panel 09/05/24.65 - Type 2 diabetes mellitus with hyperglycemia, E78.5 - Hyperlipidemia, unspecified, I10 - Essential (primary) hypertension
--- OUTSIDE RECORDS SUMMARY | 2024-06-22 10:35 | XMS_ITS | Patient Health Record ---
Author Organization [facility] Celeste [address] [place] Address [address] [place] [address] Care Team Providers Care Organizational Development Director Name Role Phone Jesús AGUAYO, Wendy Redding Primary Care Provider Un available Zeny Schwartz Unavailable [phone] Allergies Allergen (clinical drug ingredient) Drug/Non Drug [...] Problem Status W/U Status Risk Notes Problem [id number] Type 2 diabetes mellitus with polyneuropathy (E11.42) Active confirmed Plan Of Treatment No Information Insurance Providers Payer Name Payer Address Payer Phone Subscriber Number Group Number Insured Name Patient Relationship to Insured Coverage Start Date Coverage End Date [employer] 65 Medicare Preferred [address] [place] [address] [phone] [id number] Shaylee Xiao Self - patient is the insured Medical (General) History Medical History History ICD Code Diabetic neuropathy Hypertension breast cancer Osteopenia Small bowel obstruction type II diabetes Surgical History Surgery Date(Month/Year) mastectomy bowel resection section
== END 2024-06-22 11:16 | disposition home or self-care (01) ==
LOC: HO.HMCC 10:31
PROVIDERS: PCP Internal Medicine; Visit Provider Internal Medicine
DX: E11.65 Type 2 diabetes mellitus with hyperglycemia (principal); I10 Essential (primary) hypertension; E78.5 Hyperlipidemia, unspecified

== ENCOUNTER → 2024-06-22 10:30 | Outpatient (BNVA) | payer MEDICARE, SELFPAY | PROVIDERS: PCP Internal Medicine; Visit Provider Internal Medicine | DX: E11.65 Type 2 diabetes mellitus with hyperglycemia (principal); E78.5 Hyperlipidemia, unspecified; I10 Essential (primary) hypertension | CPT/HCPCS: 96127; 99212 ==

== ENCOUNTER 2024-09-24 08:53 | Outpatient (REF) | payer MEDICARE, SELFPAY ==
--- OUTSIDE RECORDS SUMMARY | 2024-09-24 09:21 | XMS_ITS | Patient Health Record ---
Author Organization [facility] Celeste [address] [place] Address [address] [place] [address] Care Team Providers Care Lumber Cutter Name Role Phone Jesús AGUAYO, Wendy Redding Primary Care Provider Un available Zney Schwartz Unavailable [phone] Allergies Allergen (clinical drug ingredient) Drug/Non Drug Allergy documented on EMR Reaction Allergy Type Onset Date Status Penicillin rash Drug Allergy Active Reason For Referral No Information Medications Medication SIG (Take, Route, Frequency, Duration) Notes Start Date End Date Status Lisinopril 20 MG 1 tablet Orally Once a day; Duration: 30 day(s) Active metFORMIN HCl 1000 MG 1 tablet with a me al Orally Once a day; Duration: 30 day(s) Active Pioglitazone HCl 15 MG 1 tablet Orally O nce a day; Duration: 30 day(s) Active Rosuvastatin Calcium 10 MG 1 tablet Oral ly Once a day; Duration: 30 day(s) Active Extra Depth Orthopedic Shoes (1 Pair) with Customized Heat Molded Multidensity Innersoles (3 Pair) as directed Dx: NIDDM (E11.9), Hammertoe Foot Deformity (M20.41,M20.42), Preulcerative Skin Lesion(s) (L85.1) 06/14/2020 Active Anastrozole 1 MG 1 tablet Orally Once a day; Duration: 30 day(s) Active glipiZIDE 5 MG 1 tablet 30 minutes before breakfast Orally BID Active Immunizations Vaccine Route Administration Date Status Comme nts Influenza Unknown 11/03/2019 Administered COVID-19 Pfizer BioNTech Vaccine Unknown 05/31/2020 Administered Second Dose: Social History Tobacco Use: Social History Observation [...] Problem Status W/U Status Risk Notes Problem Type 2 diabetes mellitus with polyneuropathy (E11.42) Active confirmed Plan Of Treatment No Information Insurance Providers Payer Name Payer Address Payer Phone Subscriber Number Group Number Insured Name Patient Relationship to Insured Coverage Start Date Coverage End Date [facility] 65 Medicare Preferred [address] [place] [address] [id number] Shaylee Xiao Self - patient is the insured Medical (General) History Medical History History ICD Code Diabetic neuropathy Hypertension breast cancer Osteopenia Small bowel obstruction type II diabetes Surgical History Surgery Date(Month/Year) mastectomy bowel resection section
[2024-09-24 10:37] LABS: Alanine Aminotransferase 18 U/L (0-31); Anion Gap 11 (12-20); Aspartate Amino Transferase 21 U/L (5-31); Blood Urea Nitrogen 27 mg/dL (9-16); Calcium 9.3 mg/dL (8.4-10.2); Carbon Dioxide 25 mmol/L (22-29); Chloride 108 mmol/L (96-108); Cholesterol 158 mg/dL (<200); Estimated Glomerular Filt Rate > 60; HDL Cholesterol 52 mg/dL (>40); Potassium 4.4 mmol/L (3.3-5.1); Sodium 140 mmol/L (135-145); Triglycerides 213 mg/dL (<150)
[2024-09-24 10:37] LABS: Hemoglobin A1C 191.0239 umol/L; Total Hemoglobin (HGBA1C) 3490.6143 umol/L
== END 2024-09-24 08:54 | disposition home or self-care (01) ==
LOC: HO.HMGCLDS 08:53
PROVIDERS: PCP Internal Medicine; Visit Provider Internal Medicine
DX: I10 Essential (primary) hypertension (principal); E11.65 Type 2 diabetes mellitus with hyperglycemia; E78.5 Hyperlipidemia, unspecified
CPT/HCPCS: 36415; 80048; 80061; 83036; 84450; 84460

== ENCOUNTER 2024-09-29 10:38 | Outpatient (AMB) | payer MEDICARE, SELFPAY ==
[2024-09-29 11:02] VITALS: BP 110/60; PULSE 91; O2SAT 99; BMI 20.8
--- NOTE | 2024-09-29 11:02 | A.OFFPC_ITS ---
Vital Signs 09/29/24 11:02 Height 4 ft 10 in Weight 99 lb 8 oz BMI 20.8 BP 110/60 Blood Pressure Location Lt brachial Position Sitting Pulse 91 Pulse Source Pulse Oximeter Pulse Oximetry (%) 99 Oxygen Delivery Method Room Air Intake Visit Reasons: 3 months f/up - see comments Intake Note: Pt is here for her 3mo. f/u Allergies Penicillins (PENICILLINS) Allergy (Intermediate, Verified 09/29/24 11:42) RASH Medication List - Last Reconciled 09/29/24 by Wendy Espinosa MD blood sugar diagnostic ([employer] Test strips) Check fasting blood sugar before breakfast and before supper cholecalciferol (vitamin D3) 50 mcg PO DAILY empagliflozin 25 mg PO QAM glipizide 5 mg PO BID 3 months lancets As directed lisinopril 20 mg PO DAILY metformin 1,000 mg PO BID desdxjivmgji-llcqyjwk-lenztg 1 tab PO DAILY rosuvastatin 10 mg PO Q2D 90 days Tobacco use date assessed: 06/22/24 Fall risk assessment: No Falls in past year Last assessed Fall Risk: 09/29/24 Dental Screening Dental Screen Date: 06/22/24 Did you have a dental visit in the last 12 months?: No Did you have a dental problem in the last 6 months where you did not have access to dental care?: No Was dental information given to patient?: Patient has dentist HPI 3 months f/up - see comments HPI Details - The patient is a 74-year-old female pr esenting for follow-up of her diabetes mellitus type 2 and hyperlipidemia - Diabetes Mellitus Type 2: The patient' s hemoglobin A1c has decreased from 7.5% to 7.2%, currently on glipizide and metformin - Hyperlipidemia: The patient's triglyce rides have increased from 168 mg/dL to 213 mg/dL, while LDL cholesterol is well-controlled at 64 mg/dL. She is taking rosuvastatin every other day for lipid management. - Osteopenia: The patient has a history of bone thinning in the hip, identified in a bone density scan conducted in 2022. - Preventative Care: The patient had a c olonoscopy in 2021, which was normal, and does not require another until 2031.\ She has history of breast cancer of left breast, seen by Dr. Padilla and was placed on anastrozole. She however has been lost to follow-up with him and does not want to do any further mammogram screenings. [facility] Medical History Mammogram declined History of cancer of left breast Hx SBO Osteopenia of multiple sites Diabetic neuropathy Essential hypertension Dyslipidemia Type 2 diabetes mellitus with hyperglycemia, without long-term current use of insulin Surgical History History of bowel resection History of section H/O mastectomy Family History Father No problems noted. Mother No problems noted. Sister Diabetes Daughter No problems noted. Brother Colon cancer Social History Household Members: Spouse and Other Household Members Other:: daughter Housing: House Are you a primary health care facility administrator to a significant other at home: No Do you presently have visiting nurse or other home services: No Alcohol intake: never Patient Tobacco Use Status: Never used Tobacco e-Cigarette/Vaping Use: Never Used Current occupational status: retired Current occupation: Right hand dominate Cognitive needs: No Hearing needs: No Vision needs: Yes Questionnaire PHQ-9 Over the last 2 weeks, how often have you been bothered by any of the following problems? Depression Screening Interpretation: Negative Depression Screening Done: Yes Source: Developed by Drs. Rocky Kelly, Nazanin Gorman, Kanu Tang and colleagues, with an educational vanita from [employer]. Thrive Questionnaire Date Thrive assessed: 09/29/24 I am a: Patient What is your living situation today?: I have a steady place to live Within the past 12 months, did the food you bought not last and you didn't have the money to get more?: I choose not to answer this question Within the past 12 months, did you worry whether your food would run out before you got money to buy more?: I choose not to answer this question Do you have trouble paying for medicines?: No Do you have trouble getting transportation to medical appointments?: No Do you have trouble paying your heating and electricity bill?: No Do you have trouble taking care of your child, family member or friend?: No Do you have trouble with day-to-day activities such as bathing, preparing meals, shopping, managing finances, etc.?: No Are you currently unemployed and looking for a job?: No Are you interested in more education?: No Please select the resources that you would like help with: Utilities Currently or been in a relationship where the following occur: I choose not to answer THRIVE Score: 0 AUDIT C Alcohol Use Questionnaire (AUDIT-C) 1. How often do you have a drink containing alcohol?: Never 3. How often do you have six or more drinks on one occasion?: Never Total Score: 0 Score Reviewed/Action Taken: Yes VIOLETA-7 AMB Questionnaire VIOLETA-7 Date VIOLETA - 7 assessed: 06/22/24 Source: Developed by Drs. Rocky Kelly, aNzanin Gorman, Kanu Tang and colleagues, with an educational vanita from [employer]. Review of Systems Const Reports no additional complaints Eyes Details: Currently sees Dr. Prince for her routine eye exam and retinopathy screening ENT Reports no additional complaints Card Denies chest pain, Denies rapid heart rate, Denies irregular heart rhythm, Denies leg edema, Denies lightheadedness and Denies dyspnea Resp Denies cough and Denies dyspnea GI Denies abdominal pain, Denies melena, Denies bloating, Denies hematochezia, Denies change in bowel habits and Denies heartburn Denies difficulty voiding, Reports nocturia and Denies genital pruritis Musc Reports no additional complaints Skin/Breast Denies breast pain, Denies breast mass and Denies rash Neuro Reports no additional complaints and Reports as per HPI Psych Reports no additional complaints Endo Reports no additional complaints Ascencion/Lymph Reports no additional complaints Aller/Immun Reports no additional complaints Physical exam (Primary Care) Vital Signs: Last Vital Signs Pulse 91 09/29/24 11:02 BP 110/60 09/29/24 11:02 Pulse Ox 99 09/29/24 11:02 Oxygen Delivery Method Room Air 09/29/24 11:02 BMI result Body Mass Index 20.8 Tobacco/Smoking Status: Tobacco use Status Tobacco use date assessed 06/22/24 09/29/24 11:03 Patient Tobacco Use Status Never used Tobacco 09/29/24 11:03 e-Cigarette/Vaping Use Never Used 09/29/24 11:03 Depression Screening Interpretation: Negative Thrive Assessment: Date of Thrive Assessment Date Thrive assessed 09/29/24 09/29/24 11:08 Currently or been in a relationship where the following occur: I choose not to answer Const General: comfortable and no acute distress Nutritional Appearance: average body habitus Orientation/consciousness: patient oriented x3 [facility] General nose exam: Normal external nose present Face and sinus: Yes face symmetric Mouth: Normal oral and palatal mucosa present and moist mucous membranes Eyes General: appearance normal, both eyes and all related structures Neck Neck: Yes full ROM, Yes no lymphadenopathy and Yes supple Thyroid: Thyroid normal Chest Other: Left mastectomy scar Resp Effort & Inspection: normal respiratory effort and able to speak in complete sentences Auscultation: clear to auscultation bilaterally Cardio Other: S1-S2 present regular rate and rhythm GI Palpation (GI): Soft to palpation, nontender and no guarding Auscultation: normal bowel sounds General: Yes no CVA tenderness Back/Spine/Pelvis Back: no CVA tenderness and No back tenderness Skin General skin exam: no rashes or lesions noted Neuro General: patient oriented x3, gait normal, tone normal, moves all extremities, Normal light touch and pain sensation, no focal motor deficits, CN's II-XI inta ct bilaterally and normal sensation to monofilament Extrem General: Yes full ROM, Yes no joint enlargement, Yes no clubbing, cyanosis or edema, Yes no calf tenderness and Yes normal gait Psych Appearance: grossly normal and well kempt Mental Status: mental status grossly normal Speech and movement: Normal speech and movement present Affect: normal affect Attitude: cooperative Thought process: Normal thought process present Results Reviewed Results Reviewed: Name: Shaylee Xiao Age/Sex: 74/F : 1950 Unit#: [id number] Attend Dr: Wendy Espinosa MD Re09/24/24 Status: DEP REF Location: [facility] Disch: SPEC : [id number] MORENO: 09/24/24 STATUS: COMP REQ : [id number] RECD: 09/24/[address]: Wendy Espinosa MD COMP: 09/24/24 ENTERED: 09/24/[address]: ORDERED: Met Prof Fast, AST, ALT, Lipid Panel Test Result Flag Reference Sodium 140 135-145 mmol/L Potassium 4.4 3.3-5.1 mmol/L CL 108 96-108 mmol/L CO2 25 22-29 mmol/L Gap 11 L 12-20 BUN 27 H 9-16 mg/dL Creat 0.72 0.5-1.4 mg/dL eGFR > 60 Chronic Kidney Disease: Estimated GFR < 60 mL/min/1.73m2 Severe Kidney Disease: Estimated GFR < 15 mL/min/1.73m2 FBS 138 H 60-99 mg/dL A fasting glucose of 126 mg/dl or greater on more than one occasion is considered diagnostic of diabetes. CA 9.3 8.4-10.2 mg/dL AST (GOT) 21 5-31 U/L ALT (GPT) 18 0-31 U/L Triglyceride 213 H <150 mg/dL Desirable Triglyceride: less than 150 mg/dL Borderline High Triglyceride 150-199 mg/dL High Triglyceride: 200-499 mg/dL Very High Triglyceride: greater than or equal to 5OO mg/dL Cholesterol 158 <200 mg/dL Desirable Cholesterol: less than 200 mg/dL Borderline High Cholesterol: 200-239 mg/dL High Cholesterol: greater than 239 mg/dL LDL Calculated 64 <100 mg/dL Desirable LDL: less than 100 mg/dL Near Optimal/Above Optimal LDL: 110-129 mg/dL Borderline High LDL: 130-159 mg/dL High LDL: 160-189 mg/dL Very High LDL: greater than or equal to 190 mg/dL HDL 52 >40 mg/dL Desirable HDL: greater than 40 mg/dL Note: This HDL assay may give artificially low results in patients with liver disease. Coding Level of Care Code Est Pt Level 4 (18961) Diagnoses Osteopenia of multiple sites M85.89 Mammogram declined Z53.20 Essential hypertension I10 Dyslipidemia E78.5 Type 2 diabetes mellitus with hyperglycemia, without long-term current use of insulin E11.65 Assessment & Plan Assessment & Plan (1) Osteopenia of multiple sites: Code(s): M85.89 - Other specified disorders of bone density and structure, multiple sites Category: Medical Plan: Repeat bone density scan ordered, encouraged do regular weight-bearing exercise, take adequate calcium from dietary sources and continue with vitamin-D 3 supplements at 2000 units daily. (2) Mammogram declined: Code(s): Z53.20 - Procedure and treatment not carried out because of patient's decision for unspecified reasons Category: Medical (3) Essential hypertension: Code(s): I10 - Essential (primary) hypertension Category: Medical (4) Dyslipidemia: Code(s): E78.5 - Hyperlipidemia, unspecified Category: Medical (5) Type 2 diabetes mellitus with hyperglycemia, without long-term current use of insulin: Code(s): E11.65 - Type 2 diabetes mellitus with hyperglycemia Category: Medical Plan will continue with the current regimen of glipizide and metformin, with an emphasis on dietary adjustments and increased physical activity to further reduce hemoglobin A1c levels below 7%. For hyperlipidemia, the patient will maintain the current rosuvastatin dosage and is advised to monitor dietary intake, particularly reducing consumption of foods high in triglycerides. The patient will continue with regular monitoring of lipid levels and glycemic control, with follow-up blood work scheduled for December. She has repeatedly refused to do if further mammogram screenings or following up with Dr. Padilla. Patient however agreed to do a repeat bone density scan Preventative care measures include scheduling a bone density scan every two years to monitor osteopenia, with the next scan due in 2024. The patient is advised to complete the shingles vaccination series and to continue receiving annual flu vaccinations. Patient was informed and verbally consented to the use of an ambient scribe for clinic note documentation during this visit. Orders: Orders XR DEXA axial skeleton 09/29/24 M85.89 - Other specified disorders of bone density and structure, multiple sites
--- OUTSIDE RECORDS SUMMARY | 2024-09-29 11:45 | XMS_ITS | Patient Health Record ---
Author Organization [facility] Celeste rogers [place] Address [address] [place] [address] Care Team Providers Care Underground Mine Superintendent Name Role Phone Jesús AGUAYO, Wendy [place] Primary Care Provider Un available Zeny Schwartz Unavailable [phone] Allergies Allergen (clinical drug ingredient) Drug/Non Drug [...] Insured Coverage Start Date Coverage End Date [facility] 65 Medicare Preferred [address] [place] [address] [id number] Shaylee Xiao Self - patient is the insured Medical (General) History Medical History History ICD Code Diabetic neuropathy Hypertension breast cancer Osteopenia Small bowel obstruction type II diabetes Surgical History Surgery Date(Month/Year) mastectomy bowel resection section
== END 2024-09-29 11:58 | disposition home or self-care (01) ==
LOC: HO.HMCC 10:39
PROVIDERS: PCP Internal Medicine; Visit Provider Internal Medicine
DX: E11.65 Type 2 diabetes mellitus with hyperglycemia (principal); M85.89 Other specified disorders of bone density and structure, multiple sites; Z53.20 Procedure and treatment not carried out because of patient's decision for unspecified reasons; I10 Essential (primary) hypertension; E78.5 Hyperlipidemia, unspecified

== ENCOUNTER → 2024-09-29 10:38 | Outpatient (BNVA) | payer MEDICARE, SELFPAY | PROVIDERS: PCP Internal Medicine; Visit Provider Internal Medicine | DX: M85.89 Other specified disorders of bone density and structure, multiple sites (principal); I10 Essential (primary) hypertension; E78.5 Hyperlipidemia, unspecified; E11.65 Type 2 diabetes mellitus with hyperglycemia | CPT/HCPCS: 99212 ==

== ENCOUNTER 2024-12-17 10:16 | Outpatient (REF) | payer MEDICARE, SELFPAY ==
--- NOTE | ~2024-12-17 | MM_ITS ---
EXAMINATION: DXA BONE DENSITY AXIAL HISTORY: M85.89 - Other specified disorders of bone density and structure, multiple... TECHNIQUE: [employer] Dual energy absorptiometry (DEXA) of the lumbar spine, total left hip, and femoral neck was performed. COMPARISON: Comparison is made with the prior examination dated 05/31/2022. FINDINGS: The bone mineral density of the lumbar spine is 0.999 g/cm2, corresponding to a T-score of -1.5, and a Z-score of 0.9. This is indicative of osteopenia. This represents a BMD change of 4.8% compared to the prior exam. This is statistically significant. The bone mineral density of the left total hip is 0.894 g/cm2, corresponding to a T-score of -0.9, and a Z-score of 1.2. This is indicative of normal bone mineral density. This represents a BMD change of 2.5% compared to the prior exam. This is not statistically significant. The bone mineral density of the left femoral neck is 0.726 g/cm2, corresponding to a T-score of -2.2, and a Z-score of 0.0. This is indicative of osteopenia. This represents a BMD change of -0.5% compared to the prior exam. FRACTURE RISK: The FRAX index suggests a ten year probability of major osteoporotic fracture of 7.5%, and of hip fracture 2.1%. MM/XR DEXA axial skeleton IMPRESSION: Based on bone mineral density, and according to World Health Organization (WHO) criteria, the diagnosis is consistent with osteopenia. Statistically, 68% of repeat scans fall within 1 SD (+/- 0.010 g/cm2 for AP spine L1-L4) and 1 SD (+/- 0.012 g/cm2 for femur total) FRAX is a trademark of the [employer] [place] [facility] Metabolic Bone Disease, a World Health Organization (WHO) Collaborating Center. Electronically signed by: Rocky Patton MD 12/17/2024 11:01 AM EDT
--- OUTSIDE RECORDS SUMMARY | 2024-12-17 12:38 | XMS_ITS | Patient Health Record ---
Author Organization [facility] Celeste rogers [place] Address [address] [place] [address] Care Team Providers Care Instructor Substitute Cosmetology Name Role Phone Jesús AGUAYO, Wendy [place] Primary Care Provider Un available Zeny Schwartz Unavailable [phone] Allergies Allergen (clinical drug ingredient) Drug/Non Drug [...] Problem Status W/U Status Risk Notes Problem Polyneuropathy due to type 2 diabetes mellitus ([id number]) Type 2 diabetes mellitus with polyneuropathy (E11.42) Active confirmed Plan Of Treatment No Information Insurance Providers Payer Name Payer Address Payer Phone Subscriber Number Group Number Insured Name Patient Relationship to Insured Coverage Start Date Coverage End Date [employer] 65 Medicare Preferred [address] [place] [address] [id number] Shaylee Xiao Self - patient is the insured Medical (General) History Medical History History ICD Code Diabetic neuropathy Hypertension breast cancer Osteopenia Small bowel obstruction type II diabetes Surgical History Surgery Date(Month/Year) mastectomy bowel resection section
== END 2024-12-17 10:17 | disposition home or self-care (01) ==
LOC: HO.MAMMO 10:16
PROVIDERS: PCP Internal Medicine; Visit Provider Internal Medicine
DX: Z13.820 Encounter for screening for osteoporosis (principal); M85.89 Other specified disorders of bone density and structure, multiple sites
CPT/HCPCS: 77080

== ENCOUNTER → 2024-12-17 10:30 | Outpatient (BNV) | payer MEDICARE, SELFPAY | PROVIDERS: PCP Internal Medicine; Visit Provider Radiology Diagnostic Radiology | DX: E28.39 Other primary ovarian failure (principal) | CPT/HCPCS: 77080 ==

== ENCOUNTER 2025-02-09 10:01 | Outpatient (REF) | payer MEDICARE, SELFPAY ==
[2025-02-09 13:40] LABS: MANUAL DIFF FLAG NO
[2025-02-09 14:05] LABS: Hematocrit 43.8 % (37.0-47.0); Hemoglobin 14.0 g/dl (12.0-16.0); Imm Gran Abs Auto 0.02 X10*3/uL (0.00-0.03); Imm Gran Pct Auto 0.3 % (0.0-0.4); Lymphocytes Absolute Auto 1.9 X10*3/uL (1.2-4.9); Mean Corpuscular HGB Conc 32.0 g/dl (31.0-35.0); Mean Corpuscular Hemoglobin 29.4 pg (27.0-33.0); Mean Corpuscular Volume 91.8 fL (80.0-98.0); NRBC Abs Auto 0.000 X10*3/uL (0.0-0.012); NRBC Pct Auto 0.0 /100WBC (0.0-0.2); Platelet Count 226 X10*3/uL (160-400); Red Blood Count 4.77 X10*6/uL (4.20-5.50); White Blood Count 6.5 X10*3/uL (4.8-10.8)
[2025-02-09 14:40] LABS: Alanine Aminotransferase 18 U/L (0-31); Anion Gap 12 (12-20); Aspartate Amino Transferase 24 U/L (5-31); Blood Urea Nitrogen 20 mg/dL (9-16); Calcium 9.6 mg/dL (8.4-10.2); Carbon Dioxide 27 mmol/L (22-29); Chloride 106 mmol/L (96-108); Cholesterol 155 mg/dL (<200); Estimated Glomerular Filt Rate > 60; HDL Cholesterol 60 mg/dL (>40); Potassium 4.4 mmol/L (3.3-5.1); Sodium 141 mmol/L (135-145); Triglycerides 228 mg/dL (<150)
[2025-02-09 14:40] LABS: Microalbum/Creatinine Ratio Ur 20.5 ug/mg cr (<30)
== END 2025-02-09 10:02 | disposition home or self-care (01) ==
LOC: HO.HMGCLDS 10:01
PROVIDERS: PCP Internal Medicine; Visit Provider Internal Medicine
DX: I10 Essential (primary) hypertension (principal); E11.65 Type 2 diabetes mellitus with hyperglycemia; M85.89 Other specified disorders of bone density and structure, multiple sites; E78.5 Hyperlipidemia, unspecified
CPT/HCPCS: 36415; 80048; 80061; 82043; 82306; 82570; 84450; 84460; 85025

== ENCOUNTER 2025-02-15 15:52 | Outpatient (AMB) | payer MEDICARE, SELFPAY ==
[2025-02-15 16:15] VITALS: BP 130/60; PULSE 88; RESP 16; TEMP 36.5; O2SAT 98; BMI 21.3
--- NOTE | 2025-02-15 16:15 | A.OFFPC_ITS ---
Vital Signs 02/15/25 16:15 Height 4 ft 10 in Weight 102 lb BMI 21.3 BP 130/60 Blood Pressure Location Rt brachial Position Sitting Respiration 16 Pulse 88 Pulse Source Pulse Oximeter Temp 97.7 F Temp Source Oral Pulse Oximetry (%) 98 Oxygen Delivery Method Room Air Intake Visit Reasons: PE Intake Note: Pt is here today for her PE: Last mammogram 12/27/22, bone density scan 12/17/24 Materials Scheduler Required: No Allergies Penicillins (PENICILLINS) Allergy (Intermediate, Verified 02/15/25 16:31) RASH Medication List - Last Reconciled 02/15/25 by Wendy Espinosa MD blood sugar diagnostic ([employer] Ultra Test strips) Check fasting blood sugar before breakfast and before supper cholecalciferol (vitamin D3) 50 mcg PO DAILY empagliflozin 25 mg PO QAM glipizide 5 mg PO BID 3 months lancets As directed lisinopril 20 mg PO DAILY metformin 1,000 mg PO BID joinfzxpylow-fswjtoyh-njnqyk 1 tab PO DAILY rosuvastatin 10 mg PO Q2D 90 days Tobacco use date assessed: 02/15/25 Fall risk assessment: 1 Fall in past year Last assessed Fall Risk: 02/15/25 Dental Screening Dental Screen Date: 02/15/25 Did you have a dental visit in the last 12 months?: No Did you have a dental problem in the last 6 months where you did not have access to dental care?: No Was dental information given to patient?: Patient declined [facility] Medical History (Updated 02/15/25 @ 16:50 by Wendy Espinosa MD) Type 2 diabetes mellitus without complication, without long-term current use of insulin Mammogram declined History of cancer of left breast Hx SBO Osteopenia of multiple sites Diabetic neuropathy Essential hypertension Dyslipidemia Type 2 diabetes mellitus with hyperglycemia, without long-term current use of insulin Surgical History History of bowel resection History of section H/O mastectomy Family History Father No problems noted. Mother No problems noted. Sister Diabetes Daughter No problems noted. Brother Colon cancer Social History Household Members: Spouse and Other Household Members Other:: daughter Housing: House Are you a primary career services director to a significant other at home: No Do you presently have visiting nurse or other home services: No Alcohol intake: never Patient Tobacco Use Status: Never used Tobacco e-Cigarette/Vaping Use: Never Used Current occupational status: retired Current occupation: Right hand dominate Cognitive needs: No Hearing needs: No Vision needs: Yes Questionnaire Thrive Questionnaire Date Thrive assessed: 06/22/24 I am a: Patient What is your living situation today?: I have a steady place to live Within the past 12 months, did the food you bought not last and you didn't have the money to get more?: I choose not to answer this question Within the past 12 months, did you worry whether your food would run out before you got money to buy more?: I choose not to answer this question Do you have trouble paying for medicines?: No Do you have trouble getting transportation to medical appointments?: No Do you have trouble paying your heating and electricity bill?: No Do you have trouble taking care of your child, family member or friend?: No Do you have trouble with day-to-day activities such as bathing, preparing meals, shopping, managing finances, etc.?: No Are you currently unemployed and looking for a job?: No Are you interested in more education?: No Please select the resources that you would like help with: Utilities Currently or been in a relationship where the following occur: I choose not to answer THRIVE Score: 0 VIOLETA-7 AMB Questionnaire VIOLETA-7 Date VIOLETA - 7 assessed: 06/22/24 Source: Developed by Drs. Rocky Kelly, Nazanin Gorman, Kanu Tang and colleagues, with an educational vanita from [employer]. Physical exam (Primary Care) Vital Signs: Last Vital Signs Temp 97.7 F 02/15/25 16:15 Pulse 88 02/15/25 16:15 Resp 16 02/15/25 16:15 BP 130/60 02/15/25 16:15 Pulse Ox 98 02/15/25 16:15 Oxygen Delivery Method Room Air 02/15/25 16:15 BMI result Body Mass Index 21.3 Tobacco/Smoking Status: Tobacco use Status Tobacco use date assessed 02/15/25 02/15/25 16:24 Patient Tobacco Use Status Never used Tobacco 02/15/25 16:16 e-Cigarette/Vaping Use Never Used 02/15/25 16:16 Thrive Assessment: Date of Thrive Assessment Date Thrive assessed 06/22/24 02/15/25 16:16 Currently or been in a relationship where the following occur: I choose not to answer Results AMB Hemoglobin A1c AMB Hemoglobin A1c 6.8 % Last Edit by Elvie Mclean CMA on 02/15/25 16:52 Results Reviewed Results Reviewed: Name: Shaylee Xiao Age/Sex: 74/F : 1950 Unit#: [id number] Attend Dr: Wendy Espinosa MD Re02/09/25 Status: DEP [facility] Disch: SPEC : [id number] MORENO: 02/09/25 STATUS: COMP REQ : [id number] RECD: 02/09/[address]: Wendy Espinosa MD COMP: 02/09/25-1008 ENTERED: 02/09/25-[address]: ORDERED: CBC Auto Diff Test Result Flag Reference WBC 6.5 4.8-10.8 X10*3/uL RBC 4.77 4.20-5.50 X10*6/uL HGB 14.0 12.0-16.0 g/dl HCT 43.8 37.0-47.0 % MCV 91.8 80.0-98.0 fL MCH 29.4 27.0-33.0 pg MCHC 32.0 31.0-35.0 g/dl RDW 13.2 11.0-16.0 % PLT 226 160-400 X10*3/uL MPV 11.2 9.4-12.3 fL Neut Pct Auto 60.6 45-73 % ImGran Pct Auto 0.3 0.0-0.4 % Lymp Pct Auto 28.9 20-40 % [place] Pct Auto 5.5 2-11 % Eos Pct Auto 3.5 0-4 % Baso Pct Auto 1.2 0-2 % NRBC Pct Auto 0.0 0.0-0.2 /100WBC ANC Neut Abs # 3.9 2.0-8.3 x10*3/uL ImGran Abs Auto 0.02 0.00-0.03 X10*3/uL Lymph Abs Auto 1.9 1.2-4.9 X10*3/uL [place] Abs Auto 0.4 0.1-1.2 X10*3/uL Eos Abs Auto 0.2 0.0-0.4 X10*3/uL Baso Abs Auto 0.1 0.0-0.2 X10*3/uL NRBC Abs Auto 0.000 0.0-0.012 X10*3/uL Name: Shaylee Xiao Age/Sex: 74/F : 1950 Unit#: [id number] Attend Dr: Wendy Espinosa MD Re02/09/25 Status: DEP REF [facility] Disch: SPEC : [id number] MORENO: 02/09/25-1010 STATUS: COMP REQ : [id number] RECD: 02/09/25-[address]: Wendy Espinosa MD COMP: 02/09/25-1440 ENTERED: 02/09/25-[address]: ORDERED: Met Prof Fast, AST, ALT, Lipid Panel, Vitamin D 25-OH Test Result Flag Reference Sodium 141 135-145 mmol/L Potassium 4.4 3.3-5.1 mmol/L CL 106 96-108 mmol/L CO2 27 22-29 mmol/L Gap 12 12-20 BUN 20 H 9-16 mg/dL Creat 0.66 0.5-1.4 mg/dL eGFR > 60 Chronic Kidney Disease: Estimated GFR < 60 mL/min/1.73m2 Severe Kidney Disease: Estimated GFR < 15 mL/min/1.73m2 FBS 155 H 60-99 mg/dL A fasting glucose of 126 mg/dl or greater on more than one occasion is considered diagnostic of diabetes. CA 9.6 8.4-10.2 mg/dL AST (GOT) 24 5-31 U/L ALT (GPT) 18 0-31 U/L Triglyceride 228 H <150 mg/dL Desirable Triglyceride: less than 150 mg/dL Borderline High Triglyceride 150-199 mg/dL High Triglyceride: 200-499 mg/dL Very High Triglyceride: greater than or equal to 5OO mg/dL Cholesterol 155 <200 mg/dL Desirable Cholesterol: less than 200 mg/dL Borderline High Cholesterol: 200-239 mg/dL High Cholesterol: greater than 239 mg/dL LDL Calculated 50 <100 mg/dL Desirable LDL: less than 100 mg/dL Near Optimal/Above Optimal LDL: 110-129 mg/dL Borderline High LDL: 130-159 mg/dL High LDL: 160-189 mg/dL Very High LDL: greater than or equal to 190 mg/dL HDL 60 >40 mg/dL Desirable HDL: greater than 40 mg/dL Note: This HDL assay may give artificially low results in patients with liver disease. Vitamin D 25-OH 111.5 >30 ng/mL Health Based Reference Values* < 20 ng/mL Deficient 20-30 ng/mL Insufficient > 30 ng/mL Sufficient Laboratory Tests 06/16/24 09/24/24 02/09/25 08:35 08:56 10:15 Estimat Average Glucose 160 Hemoglobin A1c % 7.2 H Urine Creatinine 48.60 Urine Microalbumin 10.0 Microalb/Creat Ratio 21.8 20.5 Coding Level of Care Code Est Pt Prev Care >65y(19355) Diagnoses Dyslipidemia E78.5 Essential hypertension I10 Osteopenia of multiple sites M85.89 History of cancer of left breast Z85.3 Mammogram declined Z53.20 Assessment & Plan Assessment & Plan (1) Dyslipidemia: Code(s): E78.5 - Hyperlipidemia, unspecified Category: Medical (2) Essential hypertension: Code(s): I10 - Essential (primary) hypertension Category: Medical (3) Osteopenia of multiple sites: Code(s): M85.89 - Other specified disorders of bone density and structure, multiple sites Category: Medical (4) History of cancer of left breast: Comment: was on anastrozole, followed by Dr. Padilla Code(s): Z85.3 - Personal history of malignant neoplasm of breast Category: Medical (5) Mammogram declined: Code(s): Z53.20 - Procedure and treatment not carried out because of patient's decision for unspecified reasons Category: Medical Orders: Orders Aspartate Amino Transferase 4 Months E11.9 - Type 2 diabetes mellitus without complications, E78.5 - Hyperlipidemia, unspecified, I10 - Essential (primary) hypertension, M85.89 - Other specified disorders of bone density and structure, multiple sites, Z53.20 - Procedure and treatment not carried out because of patient's decision for unspecified reasons, Z85.3 - Personal history of malignant neoplasm of breast Basic Metabolic Panel Fasting 4 Months E11.9 - Type 2 diabetes mellitus without complications, E78.5 - Hyperlipidemia, unspecified, I10 - Essential (primary) hypertension, M85.89 - Other specified disorders of bone density and structure, multiple sites, Z53.20 - Procedure and treatment not carried out because of patient's decision for unspecified reasons, Z85.3 - Personal history of malignant neoplasm of breast Hemoglobin A1c 4 Months E11.9 - Type 2 diabetes mellitus without complications, E78.5 - Hyperlipidemia, unspecified, I10 - Essential (primary) hypertension, M85.89 - Other specified disorders of bone density and structure, multiple sites, Z53.20 - Procedure and treatment not carried out because of patient's decision for unspecified reasons, Z85.3 - Personal history of malignant neoplasm of breast Microalbumin, Random (w Creat) 4 Months E11.9 - Type 2 diabetes mellitus without complications, E78.5 - Hyperlipidemia, unspecified, I10 - Essential (primary) hypertension, M85.89 - Other specified disorders of bone density and structure, multiple sites, Z53.20 - Procedure and treatment not carried out because of patient's decision for unspecified reasons, Z85.3 - Personal history of malignant neoplasm of breast Vitamin D 25-OH Total 4 Months E11.9 - Type 2 diabetes mellitus without complications, E78.5 - Hyperlipidemia, unspecified, I10 - Essential (primary) hypertension, M85.89 - Other specified disorders of bone density and structure, multiple sites, Z53.20 - Procedure and treatment not carried out because of patient's decision for unspecified reasons, Z85.3 - Personal history of malignant neoplasm of breast Lipid Panel 4 Months E11.9 - Type 2 diabetes mellitus without complications, E78.5 - Hyperlipidemia, unspecified, I10 - Essential (primary) hypertension, M85.89 - Other specified disorders of bone density and structure, multiple sites, Z53.20 - Procedure and treatment not carried out because of patient's decision for unspecified reasons, Z85.3 - Personal history of malignant neoplasm of breast Alanine Aminotransferase 4 Months E11.9 - Type 2 diabetes mellitus without complications, E78.5 - Hyperlipidemia, unspecified, I10 - Essential (primary) hypertension, M85.89 - Other specified disorders of bone density and structure, multiple sites, Z53.20 - Procedure and treatment not carried out because of patient's decision for unspecified reasons, Z85.3 - Personal history of malignant neoplasm of breast AMB Hemoglobin A1c Today Z13.9 - Encounter for screening, unspecified
--- OUTSIDE RECORDS SUMMARY | 2025-02-15 22:17 | XMS_ITS | Patient Health Record ---
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 Name Role Phone Jesús AGUAYO, Wendy Redding Primary Care Provider Un available Zeny Schwartz Unavailable [phone] Allergies Allergen (clinical drug ingredient) Drug/Non Drug [...] Polyneuropathy due to type 2 diabetes mellitus ([id number]) Type 2 diabetes mellitus with polyneuropathy (E11.42) Active confirmed Plan Of Treatment No Information Insurance Providers Payer Name Payer Address Payer Phone Subscriber Number Group Number Insured Name Patient Relationship to Insured Coverage Start Date Coverage End Date [employer] 65 Medicare Preferred [address] [place] [address] [id number] Shaylee Xiao Self - patient is the insured Medical (General) History Medical History History ICD Code Diabetic neuropathy Hypertension breast cancer Osteopenia Small bowel obstruction type II diabetes Surgical History Surgery Date(Month/Year) mastectomy bowel resection section
== END 2025-02-15 16:51 | disposition home or self-care (01) ==
LOC: HO.HMCC 15:53
PROVIDERS: PCP Internal Medicine; Visit Provider Internal Medicine
DX: Z13.9 Encounter for screening, unspecified (principal)

== ENCOUNTER → 2025-02-15 15:52 | Outpatient (BNVA) | payer MEDICARE, SELFPAY | PROVIDERS: PCP Internal Medicine; Visit Provider Internal Medicine | DX: Z00.01 Encounter for general adult medical examination with abnormal findings (principal); E78.5 Hyperlipidemia, unspecified; I10 Essential (primary) hypertension; M85.89 Other specified disorders of bone density and structure, multiple sites; E11.9 Type 2 diabetes mellitus without complications; K80.20 Calculus of gallbladder without cholecystitis without obstruction; Z53.20 Procedure and treatment not carried out because of patient's decision for unspecified reasons; Z13.31 Encounter for screening for depression | CPT/HCPCS: 83036; 96127; 99397 ==